=== PATIENT | female | born 1945 | race Caucasian/White ===

== ENCOUNTER 2020-04-14 15:24 | Observation (INO) | payer OTHER ==
--- OUTSIDE RECORDS SUMMARY | 2020-04-14 15:30 | XMS REPORT | Continuity of Care Document ---
:1945 Author Organization [facility] t Address [address] [place] [address] Dr. Anna. [address] [place] [address] Care Team Providers Name Role Phone Cezar SHERIFF S Attending Clinician Unavailable Only, Test Attending Clinician Unavailable Problems This patient has no known problems. Allergies, Adverse Reactions, Alerts This patient has no known allergies or adverse reactions. Medications This patient has no known medications. Procedures This patient has no known procedures. Encounters Start End Encounter Admission Attending Care Care Encounter Source Date/Time Date/Time Type Type Clinicians Facility Department ID 2019-07-20 2019-07-20 Telephone EDWIGE Robb [id number] 00:00:00 00:00:00 Deloris TSAI [id number] [facility] [id number] 2019-07-18 2019-07-18 Laboratory Only, [facility] [id number] 08:04:26 08:19:26 Only Test Gregg [id number] [place] [id number] [place] [id number] Results This patient has no known results.
[2020-04-14 17:18] VITALS: BMI 35.7
--- NOTE | 2020-04-14 18:02 | RAD REPORT ---
EXAM DESCRIPTION: CT - Head Brain Wo Cont - 04/14/2020 5:49 pm CLINICAL HISTORY: TIA COMPARISON: No comparisons TECHNIQUE: Axial 5 mm thick images of the head were obtained without IV contrast. All CT scans are performed using dose optimization technique as appropriate and may include automated exposure control or mA/KV adjustment according to patient size. FINDINGS: No intracranial hemorrhage, mass, edema or shift of mid-line structures. No acute cortical based infarction identified. No cortical edema or sulcal effacement. No abnormal extra-axial fluid c ollections. Ventricles are normal. No significant atrophy present. Mild scattered chronic ischemic ch anges seen. . Arterial tree calcifications are present. Mastoid air cells and visualized portions of the paranasal sinuses are clear. No acute bony findings. IMPRESSION: No intracranial hemorrhage. No acute infarction changes identified. Ongoing concerns for acute CVA can be further evaluated wit h MR imaging.
--- NOTE | 2020-04-14 18:03 | RAD REPORT ---
EXAM DESCRIPTION: RAD - Chest Pa And Lat (2 Views) - 04/14/2020 5:58 pm CLINICAL HISTORY: TIA COMPARISON: Two chest December 2001 TECHNIQUE: Frontal and lateral views of the chest were obtained. FINDINGS: The lungs are underinflated compared to the prior study. No peripheral mass or consolidati on. Interstitial pattern is accentuated by the low lung volume potentially masking mild edema or infi ltrate. Heart size is normal and central vasculature is within normal limits. No pleural effusion or pneumothorax seen. No acute bony finding noted. No aortic abnormality. IMPRESSION: No focal mass or consolidation. Baseline interstitial pattern accentuated by low lung volumes potentially masking edema or infiltrate .
--- NOTE | 2020-04-14 18:42 | RAD REPORT ---
EXAM DESCRIPTION: US - CP - 04/14/2020 6:23 pm CLINICAL HISTORY: TIA COMPARISON: No comparisons TECHNIQUE: Real-time sonographic evaluation of bilateral carotid and vertebral systems was performed . Gillespie scale and Doppler interrogation were performed with waveform tracing bilaterally. FINDINGS: Normal high resistance waveforms are noted in both external carotid arteries. The common c arotid arteries and internal carotid arteries show normal low resistance waveforms. Mild plaquing changes are present in each carotid bulb. No significant luminal narrowing seen. Peak s ystolic and end diastolic velocity values and the ICA/CCA ratios are in the non-hemodynamically signi ficant range. Antegrade flow seen in both vertebral arteries. Velocity values and ratios were recorded and are retained in the patient's imaging records. IMPRESSION: Mild bilateral plaquing changes without significant luminal narrowing identifiable. No evidence of a hemodynamically significant stenosis.
[2020-04-14 18:53] LABS: Absolute Lymphocytes (CBC) 1.8 K/uL (0.7-4.9); Basophils % 0.9 % (0-1.3); Hematocrit 37.9 % (36.0-45.0); Lymphocytes % 29.2 % (15.3-44.8); MPV 7.8 fL (7.6-11.3); RBC Red Blood Cell Count 4.49 M/uL (3.86-4.86)
[2020-04-14 19:15] LABS: Albumin 3.8 g/dL (3.4-5.0); Bilirubin Total 0.4 mg/dL (0.2-1.0); Magnesium 2.5 mg/dL (1.8-2.4); Potassium 4.2 mmol/L (3.5-5.1); Protein, Total 7.6 g/dL (6.4-8.2); Thyroid Stimulating Hormone 0.944 uIU/mL (0.360-3.740)
[2020-04-14] MEDS ORDERED: ATORVASTATIN 80 MG TAB PO SCH (21:00)
[2020-04-14 23:29] VITALS: O2SAT 96
--- NOTE | 2020-04-15 06:55 | HP ---
Date of Admission: 04/14/2020 Chief Complaint: Trouble speaking. History Of Present Illness: This is a 74-year-old pleasant female patient, who came into office tojessica augustin with her and reported that on 04/11/2020 she had a hard time completing sentence, she know exactly what she wanted to say but she could not say it. Yesterday, she had trouble remembering her alphabet and she could only say A B C, after that she was not able to say any and she remembers havin g similar symptoms when she had a TIA in the past, which was about 12 years ago. She did not have an y slurred speech. No problem with her eyesight, no difficulty swallowing, no tingling and numbness o f her extremities or face. She is having some headache for last 2 days and feels tired. After she w as evaluated at the office, she was admitted to the hospital with TIA problem. Medications: Atorvastatin 40 mg at bedtime, valsartan 320 mg p.o. daily, clopidogrel 75 mg p.o. levy y, duloxetine 60 mg p.o. daily, Trelegy 1 puff daily, trazodone 100 mg at bedtime. Review of Systems: RESTORER LACE AND TEXTILES: As mentioned above. CONSTITUTIONAL: As mentioned above. All other systems reviewed and negative. Allergies: NO KNOWN ALLERGIES. Past Medical History: Significant for TIA about 12 years ago, history of macular degeneration, hypot hyroidism, asthma, obstructive sleep apnea, hypertension, hyperlipidemia, coronary artery disease, ul cerative colitis in remission, osteoarthritis at multiple sites, anemia, depression, and insomnia. T he patient's cardiac cath from 2008 had shown 20% to 30% plaquing of RCA, LAD, and circumflex, never required any cardiac intervention. Past Surgical History: Significant for cataract surgery, tonsillectomy, wisdom teeth removal, dental implants, lumpectomy of the right breast for benign lump, hysterectomy, and removal of tumor from he r back. Family History: Father and had lung cancer, cirrhosis of liver, heart disease. Mother had hear t disease, hypertension, macular degeneration. Sister with hypertension and lupus. The patient also has lupus. Social History: Negative for smoking. Negative for alcohol use. Physical Examination: Vital Signs: Blood pressure 145/82, pulse 80, respiratory rate 16, temperature 97.1, weight 202.4 po unds, height 63 inches. General: Awake, alert, oriented, not in distress. HEENT: Head atraumatic, normocephalic. Conjunctivae nonerythematous. Sclerae white. Mouth, no thr ush or edema noted. Ears/Nose, no mass, lesion, discharge noted. Neck: Supple. No JVD, lymph nodes, bruit, thyromegaly noted. Lungs: Bilateral good equal air entry. Clear to auscultation. No rhonchi. No rales. Heart: Normal heart sounds, no murmur or gallop. Abdomen: Soft, bowel sounds normal. No guarding, rigidity, tenderness, mass, hepatosplenomegaly, di stention, or bruit noted. Extremities: No leg edema. No calf tenderness. Skin: No rash, ulcer, cellulitis. Lymphatics: No lymph node enlargement in neck, supraclavicular, infraclavicular region. Neuro: No focal neurological deficit. Chest: Unremarkable. External Genitalia: Deferred. Rectal: Deferred. Laboratory Data: COVID-19 test negative. Chest x-ray negative. CAT scan of the head done after she was admitted to the hospital shows no acute intracranial changes. Carotid Doppler shows bilateral m ild plaquing, no hemodynamically significant stenotic lesion. White count 6.3, hemoglobin 12.5, plat elets 342. Sodium 141, potassium 4.2, chloride 108, bicarb 27, BUN 15, creatinine 0.97. Glucose 88. Liver function tests normal. TSH 0.94. COVID-19 test negative. Impression: 1.Transient ischemic attack. 2.Coronary artery disease. 3.Hypertension. 4.Hyperlipidemia. 5.Hypothyroidism. 6.Osteoarthritis, multiple sites. 7.Diverticulosis. 8.Depression. Plan: We will admit the patient to hospital for further evaluation and management of this problem. We will go ahead and continue her current medication, continue antiplatelet therapy. Per order we wi ll increase her statin therapy and increase dose of atorvastatin from 40 to 80 mg. Consult neurologi , Dr. Yost and we will get echo with Doppler and MRI per stroke protocol. Details and plan of treatment discussed with patient. I will see her tomorrow for followup. TITI/MODL Voice ID: [id number]
[2020-04-15] MEDS ORDERED: VALSARTAN 160 MG TAB PO SCH (09:00)
[2020-04-15] MEDS ORDERED: CLOPIDOGREL 75 MG TABLET PO SCH (09:00)
[2020-04-15] MEDS ORDERED: PANTOPRAZOLE 40MG TABLET PO SCH (09:00)
[2020-04-15] MEDS ORDERED: DULOXETINE 30 MG CAP PO SCH (09:00)
[2020-04-15] MEDS ORDERED: HOME MED 1 EA UNK (Fluticasone/Umeclidin/Vilanter [Trelegy Ellipta 100-62.5-25] Blst.W.Dev IH SCH (09:00)
--- NOTE | 2020-04-15 10:59 | RAD REPORT ---
EXAM DESCRIPTION: MRI - Brain W/Wo Cont - 04/15/2020 10:44 am CLINICAL HISTORY: TIA Headache, drowsiness, CVA symptomology COMPARISON: MRA Head Wo Cont dated 04/15/2020; Head Brain Wo Cont dated 04/14/2020 TECHNIQUE: Multi-sequence, multiplanar MR imaging of the brain was performed with contrast. FINDINGS: No intracranial hemorrhage, hydrocephalus, or extra-axial fluid collection.Areas of T2 and FLAIR hyperintensity in the periventricular and deep white matter most compatible with mild chronic microvascular ischemia. No edema or shift of midline structures. No intracranial mass. DWI is negativ e for acute CVA. The midline structures are normally formed. Mastoid air cells and paranasal sinuses are clear. Post-contrast images show no abnormal enhancement to suggest tumor or infection. IMPRESSION: Negative for acute CVA or other acute intracranial abnormality. No pathologic post-contrast enhancement suspected.
--- NOTE | 2020-04-15 11:02 | RAD REPORT ---
EXAM DESCRIPTION: MRI - MRA Head Wo Cont - 04/15/2020 10:44 am CLINICAL HISTORY: TIA CVA COMPARISON: Head Brain Wo Cont dated 04/14/2020 FINDINGS: 3D noncontrast [id number] MR angiography of the [place] was performed. No aneurysm, flow-limiting stenosis or vascular malformation is seen. Left-sided dominant vertebral a rtery noted. The visualized dural venous sinuses appear patent. IMPRESSION: No significant flow abnormality of the [place] is identified.
--- NOTE | 2020-04-15 11:07 | RAD REPORT ---
EXAM DESCRIPTION: MRI - MRA Neck W/Wo Cont - 04/15/2020 10:44 am CLINICAL HISTORY: TIA Headache, drowsiness, CVA symptomology COMPARISON: Carotid Artery Bilateral dated 04/14/2020 FINDINGS: Contrast enhance 2D [id number] MR angiography of the neck vessels was performed. A left aortic arch is identified. Normal branching pattern of the great vessels is seen. Both subclavian arteries and common carotid arteries are patent. The left carotid bulb demonstrates mild stenosis estimated at 50% based on NASCET criteria. IMPRESSION: Mild stenosis of the left carotid bulb is seen estimated at 50% based on NASCET criteria .
[2020-04-15 12:35] VITALS: BP 128/59; TEMP 98.1
[2020-04-15] MEDS ORDERED: FOLIC ACID 1 MG TABLET PO ONE (17:00)
[2020-04-15] MEDS ORDERED: ASPIRIN EC 81 MG TAB PO ONE (17:00)
--- NOTE | 2020-04-15 19:31 | CON ---
Date of Consultation: 04/15/2020 Reason For Consultation: Consultation called by Dr. Kim because of a transient ischemic attack. History Of Present Illness: Ms. Castillo is a 74-year-old right-handed patient who has mul tiple stroke risk factors including dyslipidemia, prior TIA 10 years ago, coronary artery disease and obstructive sleep apnea with asthma who apparently developed sudden onset difficulty of expressing h erself. She was trying to read the Bible, actually I think she was praying, and all words with just the first 3 letters of the alphabet A, B, C and could not see anything else. She could not recall wh at she wanted to say and had no ability to express herself. The event lasted several minutes and per haps longer. During the episode, she had no slurred speech. Speech was clear. She had no asymmetry of her face. No weakness of the arms or legs and no other difficulty. She did not immediately come to [facility]. The event occurred about 2 days, actually on the 11 of April. Today, I sa w the patient on the 15 of April and she was admitted on the 14 [address]. Kim did a direct a dmit for the workup. Her head CT scan done on the showed no acute ischemic or hemorrhagic change s. Her carotid artery ultrasound showed mild bilateral plaques without hemodynamically significant s tenosis. Her brain MRI done earlier today ruled out the presence of an acute stroke. There was T2 a nd FLAIR hyperintensities in the periventricular and deep white matter compatible with mild chronic s mall-vessel ischemic disease but no acute stroke. Magnetic resonance angiogram of the brain showed n o significant abnormalities of the [place]. There was a left-sided dominant vertebral arter y and magnetic resonance angiogram of her neck, showed around 50% estimated stenosis of the left vaughan tid bulb, otherwise unremarkable. Her complete blood count with differential was completely normal. Basic metabolic panel showed glucose elevated at 229. Magnesium slightly elevated 2.5. TSH 0.99. COVID-19 test was negative. The patient notes no return of her symptoms while hospitalized. She was having an echocardiogram done at the time I came in to do her evaluation. Her was at the [facility]. Past Medical History: TIA around 12 years ago, hypertension, dyslipidemia, coronary artery disease, macular degeneration, insomnia, anemia, and as reported cardiac catheterization showing 20% to 30% pl aque of the right common carotid, left anterior descending and circumflex. Surgical History: Cataract surgery, tonsillectomy, lumpectomy of right breast, hysterectomy. Allergies: NO KNOWN DRUG ALLERGIES. Family History: Lung cancer, cirrhosis and heart disease in father, heart disease and hypertension i n mother and hypertension and lupus in sister. Social History: No alcohol, tobacco, or IV drugs. The patient lives with her . Medications: She has been on Plavix for years after the first transient ischemic attack and also Cym rudolph for depression and Lipitor for dyslipidemia. Review of Systems: She denies any recent fevers, chills, nausea, vomiting, myalgias, arthralgias, rash, headache, weight change. No psychiatric issues. No gastrointestinal issues. Physical Examination: Vital Signs: Blood pressure 120/59, pulse 73, respiratory rate 16, temperature 98.1, oxygen saturati on 97%. Weight 202 pounds, height 5 feet 3 inches, BMI 35.8. General: Ms. Castillo is alert and oriented to situation, place, and person. Follows commands appro priately. She is clear to auscultation. Heart: Regular. Extremities: Show no clubbing, cyanosis, or edema. Neurologic: She is alert and oriented to person, place, time, and situation and follows all commands . Cranial nerves show no deficits on 2 through 12. Motor, she has 5/5 strength proximally and dista lly in upper and lower extremities. Sensation intact in upper and lower extremities. Reflexes 1 to 2+ and symmetric in upper and lower extremities. Her gait has good stance, stride, and arm swing. Assessment: Ms. Castillo is a 74-year-old patient with multiple stroke risk factors including hypert ension, dyslipidemia, prior transient ischemic attack, and coronary artery disease, who also has had a more recent now transient ischemic attack while taking Plavix. It should be noted that she actuall y reported they had COVID-19 earlier in the year and this was discussed with the patient's as a possible risk factor for stroke as well. Plan: 1.Aspirin 81 mg plus Plavix 75 mg daily for at least 1 month. 2.Folic acid 1 mg daily. 3.Continue atorvastatin 80 mg at bedtime. 4.Diovan as per Dr. Kim. 5.Cymbalta as per Dr. Kim. 6.She should engage in 30 minutes of brisk exercise daily. 7.She was informed on changes to her diet that can reduce stroke risk. In addition to changes to th e type of liquids she drinks that also may reduce stroke risk. 8.After discharge, follow up with Dr. Yost in clinic 1 month later. BRADLEY/ANANT Voice ID: [id number] Report ID: [id number]
--- NOTE | 2020-04-16 05:16 | EKG ---
Test Date: 2020-04-14 Test Time: 22:10:38 Director Of Social Work: RICARDA MEASUREMENT RESULTS: Intervals: Rate: 73 FL: 186 QRSD: 98 QT: 380 QTc: 418 [place]: P: 48 FL: 186 QRS: -18 T: 34 INTERPRETIVE STATEMENTS: Normal sinus rhythm Incomplete right bundle branch block Minimal voltage criteria for LVH, may be normal variant Possible Anterior infarct, age undetermined Abnormal ECG No previous ECG available for comparison Electronically Signed On 04-16-20 05:11:46 NUISANCE WILDLIFE TRAPPER by Griffin Jordan
--- NOTE | 2020-04-16 08:35 | ECHO ---
HEIGHT: 5 ft 3 in WEIGHT: 202 lb 0 oz DATE OF STUDY: 04/15/[address]: Talha Kim MD 2-DIMENSIONAL: YES M.MODE: YES DOPPLER: YES COLOR FLOW: YES TDS: YES PORTABLE: NO DEFINITY: NO BUBBLE STUDY: NO DIAGNOSIS: TRANSIENT ISCHEMIC ATTACK CARDIAC HISTORY: CATHERIZATION: NO SURGERY: NO PROSTHETIC VALVE: NO PACEMAKER: NO MEASUREMENTS (cm) DIASTOLIC (NORMALS) SYSTOLIC (NORMALS) IVSd 1.0 (0.6-1.2) LA Diam 2.1 (1.9-4.0) LVEF 74% LVIDd 3.7 (3.5-5.7) LVIDs 2.2 (2.0-3.5) %FS 42% LVPWd 1.1 (0.6-1.2) Ao Diam 2.6 (2.0-3.7) 2 DIMENSIONAL ASSESSMENT: RIGHT ATRIUM: NORMAL LEFT ATRIUM: NORMAL RIGHT VENTRICLE: NORMAL LEFT VENTRICLE: NORMAL TRICUSPID VALVE: NORMAL MITRAL VALVE: NORMAL PULMONIC VALVE: NORMAL AORTIC VALVE: NORMAL PERICARDIAL EFFUSION: NONE AORTIC ROOT: NORMAL LEFT VENTRICULAR WALL MOTION: NORMAL DOPPLER/COLOR FLOW: NORMAL COMMENTS: NORMAL 2D ECHOCARDIOGRAM WITH DOPPLER. NO WALL MOTION ABNORMALITY. NO EFFUSION. TECHNOLOGIST: Kevin WALKER
--- NOTE | 2020-04-16 08:46 | DS ---
Date of Discharge: 04/15/2020 Disposition: Discharged to go home. Physical Examination: HEENT: Unremarkable. Lungs: Clear to auscultation. Heart: Sounds normal. Abdomen: Soft. Bowel sounds normal. No guarding, rigidity, tenderness, or distention. Extremities: No leg edema. Discharge Medications And Instructions: 1. Continue all prior home medications including;. a. Clopidogrel 75 mg daily. b. Take aspirin 81 mg daily. c. Folic acid 1 mg p.o. daily. 2. Follow up at my office next week on Monday or Monday per instruction. Hospital Course: This is a 74-year-old pleasant female patient, who was admitted to the hospital with TIA symptoms. Please see dictated H and P for more information. After patient was evaluated at the office, decision was made to admit her to the hospital. Further workup was done including CT scan of the head, which was negative for any acute intracranial changes. Carotid Doppler was negative for any hemodynamically significant stenotic lesion. Echocardiogram was done, result pending. MRI of the brain per stroke protocol was done and MRA of the neck showed minimal carotid artery disease, no hemodynamically significant stenotic lesion. MRA of the brain was negative and MRI of the brain was negative for any acute changes, no evidence of stroke. The patient's condition remained stable and she was discharged to go home in stable condition. EKG was normal sinus rhythm. Neurology consultation was requested from Dr. Yost. Final Diagnoses: 1. Transient ischemic attack. 2. Hypertension. 3. Hyperlipidemia. 4. Coronary artery disease. 5. Obstructive sleep apnea. 6. Osteoarthritis, multiple sites. 7. Depression. TITI/MODL Voice ID: [id number] Report ID: [id number] MTDD
== END 2020-04-15 16:46 | disposition home or self-care (01) ==
LOC: 2ND 15:27 → INTOOBSV 15:27
PROVIDERS: ADMIT Internal Medicine; ATTEND Internal Medicine
DX: G45.9 Transient cerebral ischemic attack, unspecified (principal); I25.10 Atherosclerotic heart disease of native coronary artery without angina pectoris; I10 Essential (primary) hypertension; E78.5 Hyperlipidemia, unspecified; G47.33 Obstructive sleep apnea (adult) (pediatric); M15.9 Polyosteoarthritis, unspecified; F32.9 Major depressive disorder, single episode, unspecified; K57.90 Diverticulosis of intestine, part unspecified, without perforation or abscess without bleeding; E03.9 Hypothyroidism, unspecified; J45.909 Unspecified asthma, uncomplicated; H35.30 Unspecified macular degeneration; D64.9 Anemia, unspecified; G47.00 Insomnia, unspecified; Z86.73 Personal history of transient ischemic attack (TIA), and cerebral infarction without residual deficits; Z79.02 Long term (current) use of antithrombotics/antiplatelets; Z20.822 Contact with and (suspected) exposure to COVID-19; Z86.16 Personal history of COVID-19; Z82.49 Family history of ischemic heart disease and other diseases of the circulatory system; Z80.1 Family history of malignant neoplasm of trachea, bronchus and lung
CPT/HCPCS: 93005; 93306; 85025; 36415; 83735; 82947; 84443; 80053; 70450; 71046; 93880; 70553; 70544; 70549; U0003; A9577; G0379; G0378 ×2

== ENCOUNTER 2023-03-16 05:56 | Observation (INO) | payer OTHER ==
[2023-03-09 13:20] LABS: Absolute Lymphocytes (CBC) 1.7 K/uL (0.7-4.9); Hematocrit 35.7 % (36.0-45.0); Lymphocytes % 28.7 % (15.3-44.8); MPV 7.3 fL (7.6-11.3); Platelets 327 thou/uL (152-406); RBC Red Blood Cell Count 4.15 M/uL (3.86-4.86)
[2023-03-09 13:21] LABS: Protime INR 0.99
[2023-03-09 13:22] LABS: Specific Gravity 1.016 (1.005-1.030); Urine Bacteria <20 /HPF (<20); Urine Bilirubin NEGATIVE (Negative); Urine Blood Negative (Negative); Urine Clarity Turbid (Clear); Urine Color Yellow (Yellow); Urine Glucose NEGATIVE (Negative); Urine Mucus Slight /HPF (None Seen); Urine Protein NEGATIVE (Negative); Urine RBC <5 /HPF (None Seen); Urine Urobilinogen Normal (Normal); Urine pH 5.5 (5.0-7.0)
--- NOTE | 2023-03-09 13:32 | EKG ---
Test Date: 2023-03-09 Test Time: 13:58:12 [employer] Pulper: DEBBIE MEASUREMENT RESULTS: Intervals: Rate: 69 NC: 172 QRSD: 100 QT: 404 QTc: 432 [place]: P: 64 NC: 172 QRS: -25 T: 42 INTERPRETIVE STATEMENTS: Normal sinus rhythm Incomplete right bundle branch block Borderline ECG Compared to ECG 04/14/2020 22:10:38 Left ventricular hypertrophy no longer present Myocardial infarct finding no longer present Electronically Signed On 03-09-23 13:24:03 WEIGHT AND TEST BAR CLERK by Jerry Aguilar
[2023-03-09 13:35] LABS: Potassium 4.1 mEq/L (3.5-5.1)
[2023-03-16] MEDS: SCOPOLAMINE HYDROBROMIDE PATCH TD ONE (06:30)
[2023-03-16] MEDS: CEFAZOLIN SODIUM 2 GM/VIAL ONE (06:39)
[2023-03-16] MEDS: Ringers Lactate 1,000 ML IV ONE ×2 (06:40→11:23)
[2023-03-16] MEDS ORDERED: ROCURONIUM 50 MG/5 ML VIAL IV ONE (06:41)
[2023-03-16] MEDS ORDERED: dexAMETHasone 4 MG/ML VIAL ONE (06:41)
[2023-03-16] MEDS ORDERED: ONDANSETRON 4 MG/2 ML VIAL ONE (06:41)
[2023-03-16] MEDS ORDERED: KETOROLAC 30 MG/ML INJ ONE (06:41)
[2023-03-16] MEDS ORDERED: LIDOCAINE 2% MPF 5 ML VIAL ONE (06:41)
[2023-03-16] MEDS ORDERED: propofoL 200 MG/20 ML VIAL IV ONE (06:41)
[2023-03-16] MEDS ORDERED: FENTANYL CITR 100 MCG/2 ML ONE (06:42)
[2023-03-16] MEDS: CEFAZOLIN SODIUM 1 GM/VIAL ONE (07:12)
[2023-03-16] MEDS: BUPIVACAINE 0.25% PF 30 ML VIAL ONE (07:19)
[2023-03-16] MEDS ORDERED: NS 0.9% VIAL 20 ML ONE (07:33)
[2023-03-16] MEDS: HEPARIN 5000 UNIT/ML 1 ML VIAL ONE (08:14)
[2023-03-16] MEDS ORDERED: VECURONIUM 10 MG/VIAL IV ONE (08:59)
[2023-03-16] MEDS: LIDOCAINE HCL/EPINEPHRINE 20 ML MDV ONE ×2 (10:04→10:41)
[2023-03-16] MEDS: SUGAMMADEX SODIUM 200 MG/2 ML VIAL IV ONE (11:31)
[2023-03-16] MEDS ORDERED: ACETAMINOPHEN 500 MG TAB PO PRN (12:23)
[2023-03-16] MEDS ORDERED: PROMETHAZINE 25 MG TABLET PO PRN (12:24)
[2023-03-16] MEDS ORDERED: PROMETHAZINE INJ 25 MG/ML AMP IV PRN (12:24)
[2023-03-16] MEDS: FENTANYL CITR 100 MCG/2 ML ONE (12:30)
--- OUTSIDE RECORDS SUMMARY | 2023-03-16 12:57 | XMS REPORT | Continuity of Care Document ---
Author Name Unknown Address [address] [facility] [address] [place] [address] [facility] Address [address] [facility] 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 Name Role Phone Julio Talha Tinoco Primary Care Physician [phone] [email or web address]_S Attending Clinician Unavaila DENNISE Ford Attending Clinician Unavailable OREN MELLO Attending Clinician Unavailable Deloris Robb RN Attending Clinician Unavaila ble Only, Adc Test Attending Clinician Unavailable Jt Hamilton MD Attending Clinician [phone] JT HAMILTON Attending Clinician Unavailable GC_GCBZW_Kacharliea_S Admitting Clinician Unavaila markus Payers Payer Name Policy Type Policy Number Effective Date Expirati on Date Source MEDICARE PART A AND B [id number] 2009 00:00:00 [place] [employer] [id number] 2009 00:00:00 [facility] ( - PPO) [id number] Problems Condition Name Condition Details Condition Category Status Onset Date Resolution Date Last Treatment Date Treating Clinician Comments Source Trigger middle finger of left hand Trigger middle finger of left hand Disease Active 05-09 00:00: 00 [facility] 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 Disease Active 2-06 00:00: 00 [facility] 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 Disease Active 1-16 00:00: 00 [facility] 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 left hand Disease Active 10-18 00:00: 00 [facility] Pain of left hand Pain of left hand Disease Active 10-18 00:00: 00 [facility] Pain of right hand Pain of right hand Disease Active 10-18 00:00: 00 [facility] Pain of right middle finger Pain of right middle finger Disease Active 10-18 00:00: 00 [facility] Stiffness of finger joint of right hand Stiffness of finger joint of right hand Disease Active 10-18 00:00: 00 [facility] Allergies, Adverse Reactions, Alerts Allergy Name Allergy Type Status Severity Reaction(s) Onset Date Inactive Date Treating Clinician Comments Source Aspirin Propensi ty to adverse reaction s Active 10-18 00:00: 00 [facility] NO KNOWN ALLERGIE S Drug Class Active [facility] Social History Social Habit Start Date Stop Date Quantity Comments Source Exposure to SARS-CoV-2 (event) 2022-04-29 00:00:00 2022-05-09 10:18:00 Not sure [facility] Sex Assigned At 1945 00:00:00 1945 00:00:00 [facility] Smoking Status Start Date Stop Date Source Tobacco smoking consumption unknown [facility] Medications Ordered Medication Name Filled Medication Name Start Date Stop Date Current Medication? Ordering Clinician Indication Dosage Frequency Signature (SIG) Comments Components Source lidocaine (Xylocaine) 1 % injection 1 mL 05-09 16:00: 00 05-09 16:00 :00 No [id number] 1mL [facility] betamethaso ne acetate-bet amethasone sodium phosphate (Celestone) injection 30 mg 05-09 16:00: 00 05-09 16:00 :00 No [id number] 30mg [facility] betamethaso ne acetate-bet amethasone sodium phosphate (Celestone) injection 30 mg 05-09 16:00: 00 05-09 16:00 :00 No [id number] 30mg 30 mg, Intra-arik cular, Once PRN Procedure, Starting on Mon05/09/22 at 1100, For 1 dose [facility] lidocaine (Xylocaine) 1 % injection 1 mL 05-09 16:00: 00 05-09 16:00 :00 No [id number] 1mL 1 mL, Injection, Once PRN Procedure, Starting on Mon05/09/22 at 1100, For 1 dose [facility] acetaminoph en-codeine (Tylenol w/ Codeine #3) 300-30 MG tablet 04-07 00:00: 00 04-12 05:59 :00 No [id number] 1{tbl} Q6H Take 1 tablet by mouth every 6 (six) hours if needed for severe pain for up to 4 days. [facility] No known medications 10-18 12:04: 41 No No known medication s [facility] Procedures Procedure Date / Time Performed Performing Clinicia n Source [facility] INJECT TENDON SHEATH/LIGAMENT 2022-05-09 16:00:00 [place] [facility] Encounters Start Date/Time End Date/Time Encounter Type Admission Type Attending Clinicians Care Facility Care Department Encounter ID Source 2022-04-06 16:13:51 Outpatient [facility] [id number] [facility] 2022-03-28 08:38:03 Outpatient [facility] [id number] [facility] 2022-03-11 10:26:42 Outpatient [facility] [id number] [facility] 2022-02-22 11:24:45 Outpatient [facility] [id number] [facility] 2022-02-21 13:52:13 Outpatient [facility] [id number] [facility] 2022-02-14 11:13:39 Outpatient [facility] [id number] [facility] 2021-10-18 11:15:15 Outpatient [facility] [id number] [facility] 2021-10-14 13:11:09 Outpatient [facility] [id number] [facility] 2021-09-24 07:10:36 Outpatient [facility] [id number] [facility] 2021-09-23 15:25:11 Outpatient [facility] [id number] [facility] 2023-02-27 00:00:00 2023-02-27 00:00:00 Outpatient GC_GCBZW_Ka diyala_S PRIV PRIV [id number] [facility] 2023-01-03 00:00:00 2023-01-03 00:00:00 Outpatient GC_GCBZW_Ka diyala_S PRIV PRIV [id number] [facility] 2022-12-08 00:00:00 2022-12-08 00:00:00 Outpatient GC_GCBZW_Ka diyala_S PRIV PRIV [id number] [facility] 2022-11-01 00:00:00 2022-11-01 00:00:00 Outpatient GC_GCBZW_Ka diyala_S PRIV PRIV [id number] [facility] 2022-11-01 00:00:00 2022-11-01 00:00:00 Outpatient GC_GCBZW_Ka diyala_S PRIV PRIV [id number] [facility] 2022-09-13 00:00:00 2022-09-13 00:00:00 Outpatient GC_GCBZW_Ka diyala_S PRIV PRIV [id number] [facility] 2022-08-24 00:00:00 2022-08-24 00:00:00 Outpatient GC_GCBZW_Ka diyala_S PRIV PRIV [id number] [facility] 2022-08-24 00:00:00 2022-08-24 00:00:00 Outpatient GC_GCBZW_Ka diyala_S PRIV PRIV [id number] [facility] 2022-08-24 00:00:00 2022-08-24 00:00:00 Outpatient GC_GCBZW_Ka diyala_S PRIV PRIV [id number] [facility] 2022-08-24 00:00:00 2022-08-24 00:00:00 Outpatient GC_GCBZW_Ka diyala_S PRIV PRIV [id number] [facility] 2022-08-19 00:00:00 2022-08-19 00:00:00 Outpatient GC_GCBZW_Ka diyala_S PRIV PRIV [id number] [facility] 2022-08-18 00:00:00 2022-08-18 00:00:00 Outpatient GC_GCBZW_Ka diyala_S PRIV PRIV [id number] [facility] 2022-08-17 00:00:00 2022-08-17 00:00:00 Outpatient GC_GCBZW_Ka diyala_S PRIV PRIV [id number] [facility] 2022-08-16 00:00:00 2022-08-16 00:00:00 Outpatient GC_GCBZW_Ka diyala_S PRIV PRIV [id number] [facility] 2022-08-15 00:00:00 2022-08-15 00:00:00 Outpatient GC_GCBZW_Ka diyala_S PRIV PRIV [id number] [facility] 2022-05-09 11:30:00 2022-05-09 12:45:09 Outpatient [facility] [id number] [facility] 2022-05-09 11:00:00 2022-05-09 12:44:57 Office Visit DENNISE KIRBY [facility] 1 [id number] [facility] 2022-04-25 13:00:00 2022-04-25 13:00:00 Outpatient OREN MELLO [facility] [id number] [facility] 2022-04-19 09:30:00 2022-04-19 09:52:24 Outpatient [facility] [id number] [facility] 2022-04-19 09:30:00 2022-04-19 09:52:05 Office Visit Oren Mello [facility] 1 [id number] [facility] 2022-04-07 13:15:00 2022-04-07 14:13:33 Outpatient [facility] [id number] [facility] 2022-04-07 13:30:00 2022-04-07 14:11:55 Office Visit Dennise Kirby [facility] 1 [id number] [facility] 2022-03-25 11:00:00 2022-03-25 11:00:00 Outpatient OREN MELLO [facility] [id number] [facility] 2022-03-14 13:30:00 2022-03-14 13:59:11 Office Visit Oren Mello [facility] 1 [id number] [facility] 2021-10-18 12:00:00 2021-10-18 13:41:56 Office Visit OREN MELLO [facility] 1 [id number] [facility] 2021-10-18 00:00:00 2021-10-18 13:41:47 Outpatient [facility] [id number] [facility] 2021-10-14 12:30:00 2021-10-14 12:30:00 Outpatient OREN MELLO [facility] [id number] [facility] 2019-07-20 00:00:00 2019-07-20 00:00:00 Telephone Deloris Robb [facility] [id number] [id number] [id number] 2019-07-20 00:00:00 2019-07-20 00:00:00 Telephone Deloris Robb [facility] [id number] [facility] 2019-07-18 08:04:26 2019-07-18 08:19:26 Laboratory Only Only, Adc Test [facility] [id number] 2019-07-18 08:04:26 2019-07-18 08:19:26 Laboratory Only Only, Adc Test Jt Hamilton [facility] [id number] [facility] 2019-07-18 08:00:00 2019-07-18 08:00:00 Outpatient R JT HAMILTON [facility] [id number] [facility]
[2023-03-16] MEDS ORDERED: ALBUTEROL INHALER 200 PUFF/6.7 GM IH PRN (13:38)
[2023-03-16] MEDS: LANO/MINERAL OIL/PETRO 3.5 GM ONE (13:55)
[2023-03-16] MEDS: cloNIDine HCL 0.1 MG TAB PO SCH (14:00)
[2023-03-16 15:22] VITALS: BMI 35.3
[2023-03-16] MEDS: CEFAZOLIN 1 GM in NA CHLORIDE 0.9% 50 ML IVPB SCH (15:47)
[2023-03-16] MEDS ORDERED: PNEUMOCOCCAL VACCINE 0.5 ML IMVAC ONE (16:00)
[2023-03-16] MEDS ORDERED: SENOSIDES 8.6 MG TAB PO PRN (16:14)
[2023-03-16] MEDS: MORPHINE 2 MG/ML SYR IV PRN (17:01)
[2023-03-16] MEDS: MOXIFLOXACIN HCL 0.5% 3ML OPTH OPTH SCH (17:46)
[2023-03-16] MEDS: KETOROLAC OPTHALMIC 5 ML BOT OPTH SCH (17:46)
[2023-03-16] MEDS: HYDROMORPHONE HCL 1 MG/ML INJ IV ONE (18:50)
[2023-03-16] MEDS: KETOROLAC 30 MG/ML INJ IV ONE (18:50)
[2023-03-16] MEDS: TRAZODONE 50 MG TABLET PO SCH (20:53)
[2023-03-16] MEDS: ATORVASTATIN 40 MG TAB PO SCH (20:53)
[2023-03-16] MEDS: DOXAZOSIN 2 MG TAB PO SCH (20:54)
[2023-03-16] MEDS: HYDROCODONE/APAP 5/325 MG TAB PO PRN (21:19)
[2023-03-17] MEDS: IBUPROFEN 400 MG TAB PO SCH
[2023-03-17] MEDS: VALSARTAN 160 MG TAB PO SCH (09:17)
[2023-03-17] MEDS: CLOPIDOGREL 75 MG TABLET PO SCH (09:17)
[2023-03-17] MEDS: IBUPROFEN 200 MG TAB PO ONE (09:18)
[2023-03-17] MEDS: FOLIC ACID 1 MG TABLET PO SCH (09:19)
[2023-03-17] MEDS: HYDROCODONE/APAP 5/325 MG TAB PO ONE (09:19)
[2023-03-17 09:35] VITALS: TEMP 97.4; O2SAT 94
[2023-03-17 13:16] VITALS: BP 142/53
--- NOTE | 2023-04-03 14:14 | OP ---
Date of Procedure: 03/16/2023 Surgeon: Charlee Guerra MD Analytical Research Program Manager: Tuyet Vergara Preoperative Diagnoses: Pelvic mass, left lower quadrant pain, stress urinary incontinence, and rect ocele. Postoperative Diagnoses: pelvic pain, ovarian cyst, adhesions, posterior wall defect stag e II, posterior enterocele, and stress urinary incontinence. Procedures Performed: 1.Diagnostic laparoscopy, bilateral salpingo-oophorectomy with pelvic washings and left ureterolysis . 2.Rectocele repair with enterocele repair and perineorrhaphy. 3.Transobturator midurethral sling (Solyx single-incision sling) and cystoscopy. Anesthesia: General endotracheal. Estimated Blood Loss: 50 Specimens: Bilateral ovaries and tubes with pelvic washings. Complications: No complications. Drains: No drains. Findings: POP-Q -2, -2, -7, 4.5, moderate, 7, -1, 0, NA. Posterior enterocele was clearly visualize d. There was a site-specific defect in the left lateral wall with avulsion distally, so site-specifi c defect repair was performed. Cystoscopy was negative after the sling. Bilateral ovaries and tubes with adhesions on the vaginal cuff, obliterated cul-de-sac, and bilateral scars on the lateral stanley . Indications: The patient is a 77-year-old with prolapse and urinary incontinence. On transvaginal u ltrasound, she was found to have a complex pelvic adnexal mass. Her CA-125 was 8.9, normal. However , since the left-sided cystic mass was 1.9, 1.25, 1.2 cm multiple cysts that were organized like a co mplex mass , including a benign mass, so proceeded to consent her for laparoscopic bilatera l salpingo-oophorectomy and pelvic washings along with evaluation for prolapse repair, including rect ocele repair and perineorrhaphy. At times she had stress urinary incontinence, for which she was flaquito luated with cough stress test, which was positive, so proceeded to employment counselor her for a midurethral slin g. She came into the hospital, re-consented in the preoperative area. The daughter and were present for the conversation, and she was skeptical about having mesh placed in the vagina. After e xplaining that this was a midurethral mesh that , she consented for this fully understandin g the risk of urinary obstruction with the sling, which is very uncommon; however, present risk would be very critical to solve her problem of stress urinary incontinence, which was one of her chief com plaints. Procedure In Detail: After taken back to the OR, 2 g of Ancef was given and SCDs were placed. Time- out was done and procedure started. The patient was placed in a supine fashion on the operating tabl e. dorsal lithotomy position. Abdomen, vulva, vagina, and perineum were prepped and drap ed in a sterile fashion with ChloraPrep and Betadine, respectively. Diagnostic laparoscopy with bilateral salpingo-oophorectomy and pelvic washings: An infraumbilical i ncision was made with the scalpel. Then, using the open laparoscopy technique, fascia was incised, t agged with sutures. Peritoneum was entered sharply. Brii was introduced and fixed in place. Two left lateral ports were placed, 1 in the left lower quadrant and 1 in the left upper quadrant, a supr apubic scar in the right lower quadrant incision, all of these were 5 mm incisions made and trocars p laced. On examination of the pelvic cavity after pelvic washings were performed clearly, upper abdom en was completely unremarkable. Lower abdomen, it was clear that the ovaries were stitched onto the top of the vaginal apex to the vaginal cuff. On close examination, and following the ureters on the left side, it was much more pulled in towards the suspension that was performed, which seemed like ut erosacral suspension; however, likely from her vaginal procedure. Her lateral broad ligaments were a lso stitched to her uterosacral posterior cuff. Therefore, plan was to perform left ureterolysis to trace the entire course of the left ureter, followed by salpingo-oophorectomy. After pelvic washings were performed, the sidewall, and the pelvis was opened up with the help of sharp and blunt dissection using Maryland scissors and cautery. Then, once the ureter was id entified proximally, this was followed and dissected from lateral to medial. Once the medial leaf of the broad ligament was opened up, I could visualize the ureter. The dissection was started at the l evel of the left round ligament. Then, the dissection was easier for me to start. This was brought down. I came down to open the paravesical space and then after identifying the uterosacral ligament, the pararectal space was opened up. As there was an ambulatory cul-de-sac, this was more advantageo us. Then, the prevesical space was opened up and the bladder dissected with vaginal retraction with the EEA Sizer inferiorly. On the right side, similar dissection was performed by opening up the lateral broad ligament by retra cting the round ligament and getting into the broad ligament. Then, broad ligament was dissected cuca n all the way to the uterosacral because the IP ligament was U-stitch on to the lateral wall due to t he suspension of the ovaries to the uterosacral ligaments. Once this dissection was performed, the u reter was identified inferiorly and medially. The peritoneum was incised to drop the ureter laterall y. Then, on the medial posterior aspect of the ureter, the peritoneum was incised all the way down t o the right pararectal space. Once the pararectal space was opened up, isolated the utero sacral ligaments and the paravesical space was easily opened on the right side as well. The bladder dissection was completed, retracted inferiorly. Then, with the exposed IP ligaments and the uterosac ral ligament, I was able to take down the infundibulopelvic ligament on the left side, isolated that both medially and laterally. Then, this was taken down. Then, the tubal mass was also excised. The re were cystic masses on the left ovary almost on the cuff, so it was carefully removed without allow ing any cells to spill or opening up the cyst wall. Once this was performed, the left ovary was diss ected from the left ureter. The ureter was dissected all the way to the ureteric tunnel along the in ternal iliac artery. As the uterine artery was severed, the pedicle was slightly superior to the ure teric tunnel and slightly lateral. This was safely then dissected by bringing all the scar tissue me dially and dropping the ureter laterally. Then, the left ovary and tube were dissected off the vagin al cuff. Then retracted towards IP ligament and the then IP ligament was taken down with the help of the LigaSure. In a similar fashion, the ovary was dissected off the vaginal cuff carefully without leaving any remnants there. Since uterosacral was exposed, this was left intact attached to the vagi nal cuff. Then, the ovary and tube were dissected off the cuff towards the IP, and the IP was taken down with the help of the LigaSure. The specimens were placed in Endo Catch bag and the attachment o f the uterosacral to the vaginal cuff was left intact as this acted as a good support for the apex. All the specimens were removed. There was good peristalsis of both ureters. Specimen bag was remove d through the umbilical port. Trocars were removed under direct vision after thorough irrigation and suction performed. There was excellent hemostasis. All the trocars were removed under direct visio n and the fascia at the umbilicus was closed with the help of 0 Vicryl sutures tied to each other, si mple Monocryl sutures for all skin incisions. Rectocele repair: After visualizing the defect on the posterior wall, it was clear that this was a s ite-specific repair, so I went ahead and injected with dilute vasopressin on the perineum posterior wall. A nava-shaped incision was made, starting at the posterior wall all the way down to the perineum and this was opened up. Once the connective tissue was dissected, and I could visual ize the connective tissue defect over the lateral wall avulsion, and once the defect was visualized, all the fascia was dissected inferiorly around the vaginal epithelium and then the sidewall was also clearly dissected. Rectum was projected and dissected posteriorly. Then, I was able to d issect past the apex into the posterior enterocele gradually. The apex was well suspended as the susi rosacrals were attached to the apex. Then, the enterocele was fully exposed all the way to the top o f the wall. This was closed with 2 pursestring sutures of 3-0 Monocryl. Once it was all nicely redu gareth, there was excellent support reattached to the apex. Rectocele repair was performed with continuous running 2-0 Vicryl sutures to repair the left lateral wall defect. The perineal body reconstruction was performed with 2-0 Vicryl sutures in interrupted fashion in 2 la yers. Once this was done, the posterior wall was brought down and reattached to the perineal body. The epithelial edges were brought in with the help of 2-0 Vicryl and subcutaneous subcuticular suture s with 3-0 Vicryl. Rectal exam was performed. No evidence of any trauma and very well reattached ap ex to the posterior wall. The midurethral layer was picked up with 2 Allis clamps and then injected with dilute vasopressin 10 cc 15 blade was used to make a 1.5 cm mid urethral incision, and then dissection was argentina ed to the ipsilateral obturator space hugging the inferior pubic ramus without perforating membrane. The tract was then enlarged on both sides. The Solyx ring was taken. The middle was marked with th e help of 3-0 Monocryl suture. Then, retracing the tract of the tunnel all the way to the obturator space, top one-third of the Solyx needle was passed at a 45-degree angle, and the anchor was placed i nto the obturator muscle and the fascia. This was deployed here and a good time was given. The side was loaded and passed retracing the tunnel and then into the obturator internus muscle and fascia. The anchor was secured without leaving the mesh. The tension was checked and was optimal without it being too tight, just enough space for Metzenbaum scissors. on the mesh for high tensioni ng adjusted to be too tight. Irrigation with antibiotic solution was performed and closed the vaginal epithelium in a continuous r unning locked fashion with the help of 3-0 Vicryl sutures. Malloy was removed. Cystoscopy was perfor med, 30-degree lens, normal saline, and there were excellent jets of urine from both ureteric orifice s. No evidence of any trauma to the bladder or foreign body on the lateral aspects . She was recovered from anesthesia. Instrument, needle, and sponge counts were correct at the end of the case. The patient tolerated procedure well. She was recovered and taken to PACU in stable condition . ROXANA/ANANT Voice ID: [id number] Report ID: [id number]
== END 2023-03-17 13:18 | disposition home or self-care (01) ==
LOC: OR 05:56 → 2ND 12:53
PROVIDERS: ADMIT Obstetrics & Gynecology; ATTEND Obstetrics & Gynecology
PROC: 0UT24ZZ Resection of Bilateral Ovaries, Percutaneous Endoscopic Approach (ICD-10-PCS; 2023-03-16)
PROC: 0JQC0ZZ Repair Pelvic Region Subcutaneous Tissue and Fascia, Open Approach (ICD-10-PCS; 2023-03-16)
PROC: 0TSD0ZZ Reposition Urethra, Open Approach (ICD-10-PCS; 2023-03-16)
PROC: 0UT74ZZ Resection of Bilateral Fallopian Tubes, Percutaneous Endoscopic Approach (ICD-10-PCS; principal; 2023-03-16 07:00)
DX: D27.1 Benign neoplasm of left ovary (principal); N39.3 Stress incontinence (female) (male); N81.6 Rectocele; R19.04 Left lower quadrant abdominal swelling, mass and lump; R10.32 Left lower quadrant pain; N83.8 Other noninflammatory disorders of ovary, fallopian tube and broad ligament; I10 Essential (primary) hypertension; I25.10 Atherosclerotic heart disease of native coronary artery without angina pectoris; E78.5 Hyperlipidemia, unspecified; J45.909 Unspecified asthma, uncomplicated; G47.33 Obstructive sleep apnea (adult) (pediatric); E66.9 Obesity, unspecified; F32.A Depression, unspecified; D64.9 Anemia, unspecified; Z86.73 Personal history of transient ischemic attack (TIA), and cerebral infarction without residual deficits
CPT/HCPCS: 93005; 85025; 81001; 80048; 36415; 86900; 88108; 86850; 85610; 86901; 88305; 88307; 85730; 94010; 58661; 57250; 57288; J1644; A4216; J2704; J1100; J1885; J2001; J3010 ×2; J2270; J1170; J2405; G0378 ×3; C1771; J7120 ×2; J0690 ×4; G0379; 88304; J3535

== ENCOUNTER 2023-09-05 17:22 | Emergency (ER) | payer OTHER ==
--- OUTSIDE RECORDS SUMMARY | 2023-09-05 17:26 | XMS REPORT | Continuity of Care Document ---
Author Name Unknown Address [address] [facility] [address] [place] [address] [facility] Address [address] [facility] 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 Role Phone Talha Kim Primary Care Physician [phone] [email or web address]_Kadiyala_S Attending Clinician Unavaila IBETH Ford Attending Clinician Unavailable OREN MELLO Attending Clinician Unavailable Deloris Robb RN Attending Clinician Unavaila ble Only, Adc Test Attending Clinician Unavailable Afsaneh Hamilton MD Attending Clinician [phone] AFSANEH HAMILTON Attending Clinician Unavailable GC_GCBZW_Kadimaria ma_S Admitting Clinician Unavaila markus Payers Payer Name Policy Type Policy Number Effective Date Expirati on Date Source MEDICARE PART A AND B [id number] 2009 00:00:00 [place] [employer] [id number] 2009 00:00:[address] [facility] ( - PPO) [id number] Problems Condition Name Condition Details Condition Category Status Onset Date Resolution Date Last Treatment Date Treating Clinician Comments Source Fatigue Fatigue Problem Active 6-10 00:00: 00 [facility] Low back pain Low Back Pain Problem Active 4-17 00:00: 00 [facility] Pain in pelvis Pain in Pelvis Problem Active 0 4-17 00:00: 00 [facility] Dysuria Dysuria Problem Active 0 4-17 00:00: 00 [facility] Left lower quadrant pain Left Lower Quadrant Pain Problem Active 0 2-15 00:00: 00 [facility] Pelvic mass Pelvic Mass Problem Active 0 2-06 00:00: 00 [facility] Hypertensi ve disorder Hypertensi ve Disorder Problem Active 0 2-01 00:00: 00 [facility] Asthma Asthma Problem Active 0 2-01 00:00: 00 [facility] 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 Problem Active 0 7-13 00:00: 00 [facility] Female stress incontinen ce Female Stress Incontinen ce Problem Active 0 7-13 00:00: 00 [facility] Urgent desire to urinate Urgent Desire to Urinate Problem Active 0 7-13 00:00: 00 [facility] Herniation of rectum into vagina Herniation of Rectum into Vagina Problem Active 0 4-10 00:00: 00 [facility] Genuine stress incontinen ce Genuine Stress Incontinen ce Problem Active 0 4-10 00:00: 00 [facility] Trigger middle finger of left hand Trigger middle finger of left hand Disease Active 0 4-03 00:00: 00 [facility] Urinary incontinen ce Urinary Incontinen ce Problem Active 0 2-14 00:00: 00 [facility] 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 Disease Active 0 2-06 00:00: 00 [facility] 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 Disease Active 0 1-16 00:00: 00 [facility] 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 left hand Disease Active 0 9-12 00:00: 00 [facility] Pain of left hand Pain of left hand Disease Active 0 9-12 00:00: 00 [facility] Pain of right hand Pain of right hand Disease Active 10-18 00:00: 00 [facility] Pain of right middle finger Pain of right middle finger Disease Active 10-18 00:00: 00 [facility] Stiffness of finger joint of right hand Stiffness of finger joint of right hand Disease Active 10-18 00:00: 00 [facility] Essential hypertensi on Essential Hypertensi on Problem Active 08-06 00:00: 00 [facility] Atrophic vaginitis Atrophic Vaginitis Problem Active 08-06 00:00: 00 [facility] Menopause present Menopause Present Problem Active 08-06 00:00: 00 [facility] Gynecologi ruma examinatio n abnormal Gynecologi ruma Examinatio n Abnormal Problem Active 08-06 00:00: 00 [facility] History of cerebrovas cular disease History of Cerebrovas cular Disease Problem Active 08-06 00:00: 00 [facility] Allergies, Adverse Reactions, Alerts Allergy Name Allergy Type Status Severity Reaction(s) Onset Date Inactive Date Treating Clinician Comments Source Aspirin Propensi ty to adverse reaction s Active 10-18 00:00: 00 [facility] Aspirin Allergy to substanc e Active [facility] NO KNOWN ALLERGIE S Drug Class Active [facility] Social History Social Habit Start Date Stop Date Quantity Comments Source Exposure to SARS-CoV-2 (event) 2022-04-29 00:00:00 2022-05-09 10:18:00 Not sure [facility] Sex Assigned At 1945 00:00:00 1945 00:00:00 [facility] Smoking Status Start Date Stop Date Source Tobacco smoking consumption unknown [facility] Never Smoker [facility] Medications Ordered Medication Name Filled Medication Name Start Date Stop Date Current Medication? Ordering Clinician Indication Dosage Frequency Signature (SIG) Comments Components Source lidocaine (Xylocaine) 1 % injection 1 mL 05-09 16:00: 00 05-09 16:00 :00 No [id number] 1mL [facility] betamethaso ne acetate-bet amethasone sodium phosphate (Celestone) injection 30 mg 05-09 16:00: 00 05-09 16:00 :00 No [id number] 30mg [facility] acetaminoph en-codeine (Tylenol w/ Codeine #3) 300-30 MG tablet 04-07 00:00: 00 04-12 05:59 :00 No [id number] 1{tbl} Q6H Take 1 tablet by mouth every 6 (six) hours if needed for severe pain for up to 4 days. [facility] No known medications 912 12:04: 41 No No known medication s [facility] albuterol sulfate HFA 90 mcg/actuati on aerosol inhaler albuterol sulfate HFA 90 mcg/actuati on aerosol inhaler No albuterol sulfate HFA 90 mcg/actuat ion aerosol inhaler [facility] atorvastati n 40 mg tablet TAKE 1 TABLET BY MOUTH EVERY DAY atorvastati n 40 mg tablet TAKE 1 TABLET BY MOUTH EVERY DAY No atorvastat in 40 mg tablet TAKE 1 TABLET BY MOUTH EVERY DAY [facility] clonidine HCl 0.1 mg tablet TAKE 1 TABLET BY MOUTH THREE TIMES DAILY clonidine HCl 0.1 mg tablet TAKE 1 TABLET BY MOUTH THREE TIMES DAILY No clonidine HCl 0.1 mg tablet TAKE 1 TABLET BY MOUTH THREE TIMES DAILY [facility] clopidogrel 75 mg tablet TAKE 1 TABLET BY MOUTH DAILY clopidogrel 75 mg tablet TAKE 1 TABLET BY MOUTH DAILY No clopidogre l 75 mg tablet TAKE 1 TABLET BY MOUTH DAILY [facility] diclofenac sodium 75 mg tablet,noah yed release TAKE 1 TABLET BY MOUTH TWICE DAILY NEEDED diclofenac sodium 75 mg tablet,noah yed release TAKE 1 TABLET BY MOUTH TWICE DAILY NEEDED No diclofenac sodium 75 mg tablet,del ayed release TAKE 1 TABLET BY MOUTH TWICE DAILY NEEDED [facility] doxazosin 1 mg tablet TAKE 1 TABLET BY MOUTH TWICE DAILY doxazosin 1 mg tablet TAKE 1 TABLET BY MOUTH TWICE DAILY No doxazosin 1 mg tablet TAKE 1 TABLET BY MOUTH TWICE DAILY [facility] duloxetine 60 mg capsule,del ayed release TAKE 1 CAPSULE BY MOUTH DAILY duloxetine 60 mg capsule,del ayed release TAKE 1 CAPSULE BY MOUTH DAILY No duloxetine 60 mg capsule,de layed release TAKE 1 CAPSULE BY MOUTH DAILY [facility] estradiol 0.01% (0.1 mg/gram) vaginal cream Insert 0.5 g 3 times a week by vaginal route at bedtime for 90 days. estradiol 0.01% (0.1 mg/gram) vaginal cream Insert 0.5 g 3 times a week by vaginal route at bedtime for 90 days. No .5g Q56H estradiol 0.01% (0.1 mg/gram) vaginal cream Insert 0.5 g 3 times a week by vaginal route at bedtime for 90 days. [facility] folic acid 1 mg tablet TAKE 1 TABLET BY MOUTH EVERY DAY folic acid 1 mg tablet TAKE 1 TABLET BY MOUTH EVERY DAY No folic acid 1 mg tablet TAKE 1 TABLET BY MOUTH EVERY DAY [facility] Metamucil Metamucil No Metamucil [facility] omeprazole 20 mg capsule,del ayed release omeprazole 20 mg capsule,del ayed release No omeprazole 20 mg capsule,de layed release [facility] Stool Softener Stool Softener No Stool Softener [facility] trazodone 100 mg tablet TAKE 2 TABLETS BY MOUTH DAILY AT BEDTIME trazodone 100 mg tablet TAKE 2 TABLETS BY MOUTH DAILY AT BEDTIME No trazodone 100 mg tablet TAKE 2 TABLETS BY MOUTH DAILY AT BEDTIME [facility] valsartan 320 mg tablet valsartan 320 mg tablet No valsartan 320 mg tablet [facility] Vitamin D Vitamin D No Vitamin D [facility] vitamin K2 vitamin K2 No vitamin K2 [facility] Wixela Inhub 250 mcg-50 mcg/dose powder for inhalation Inhale 1 puff twice a day by inhalation route. Wixela Inhub 250 mcg-50 mcg/dose powder for inhalation Inhale 1 puff twice a day by inhalation route. No Wixela Inhub 250 mcg-50 mcg/dose powder for inhalation Inhale 1 puff twice a day by inhalation route. [facility] tramadol 50 mg tablet TAKE 1 TABLET BY MOUTH EVERY 12 HOURS NEEDED tramadol 50 mg tablet TAKE 1 TABLET BY MOUTH EVERY 12 HOURS NEEDED No tramadol 50 mg tablet TAKE 1 TABLET BY MOUTH EVERY 12 HOURS NEEDED [facility] Vital Signs Vital Name Observation Time Observation Value Comments S ource BP Diastolic 2023-07-17 00:00:00 80 mm[Hg] [facility] BP Systolic 2023-07-17 00:00:00 135 mm[Hg] [facility] Height 2023-07-17 00:00:00 63 [in_i] [facility] BMI (Body Mass Index) 2023-07-17 00:00:00 35.7 kg/m2 [facility] Body Weight 2023-07-17 00:00:00 201.4 [lb_av] [facility] Height 2023-05-24 00:00:00 63 [in_i] [facility] BP Systolic 2023-05-24 00:00:00 177 mm[Hg] [facility] BP Diastolic 2023-05-24 00:00:00 78 mm[Hg] [facility] BP Systolic 2023-05-03 00:00:00 150 mm[Hg] [facility] Height 2023-05-03 00:00:00 63 [in_i] [facility] BMI (Body Mass Index) 2023-05-03 00:00:00 34.8 kg/m2 [facility] BP Diastolic 2023-05-03 00:00:00 62 mm[Hg] [facility] Body Weight 2023-05-03 00:00:00 196.2 [lb_av] [facility] BMI (Body Mass Index) 2023-03-23 00:00:00 35.1 kg/m2 [facility] Body Weight 2023-03-23 00:00:00 198 [lb_av] [facility] Height 2023-03-23 00:00:00 63 [in_i] [facility] BP Diastolic 2023-03-23 00:00:00 68 mm[Hg] [facility] BP Systolic 2023-03-23 00:00:00 152 mm[Hg] [facility] Procedures Procedure Date / Time Performed Performing Clinicia n Source CT, abdomen + pelvis, w/wo contrast 2023-07-17 00:00:00 [facility] CT, abdomen + pelvis, w/wo contrast 2023-05-24 00:00:00 [facility] Repair of Rectocele 2023-03-16 00:00:[address] [facility] Cystoscopy 2022-05-25 00:00:00 [facility] Amy colmenares [place] INJECT TENDON SHEATH/LIGAMENT 2022-05-09 16:00:00 [facility] Procedure on Hand 2022-04-06 00:00:00 [facility] Surgical Procedure on Left Eye Region 2013-02-06 00:00:00 [facility] Lumpectomy of Right Breast 1996-02-07 00:00:00 [facility] Partial Hysterectomy 1971-02-06 00:00:00 [facility] Oral Surgery Procedure [facility] Excision of Mass [facility] En[facility] Start Date/Time End Date/Time Encounter Type Admission Type Attending Clinicians Care Facility Care Department Encounter ID Source 2022-04-06 16:13:51 Outpatient [facility] [id number] [facility] 2022-03-28 08:38:03 Outpatient [facility] [id number] [facility] 2022-03-11 10:26:42 Outpatient [facility] [id number] [facility] 2022-02-22 11:24:45 Outpatient [facility] [id number] [facility] 2022-02-21 13:52:13 Outpatient [facility] [id number] [facility] 2022-02-14 11:13:39 Outpatient [facility] [id number] [facility] 2021-10-18 11:15:15 Outpatient [facility] [id number] [facility] 2021-10-14 13:11:09 Outpatient [facility] [id number] [facility] 2021-09-24 07:10:36 Outpatient [facility] [id number] [facility] 2021-09-23 15:25:11 Outpatient [facility] [id number] [facility] 2023-07-17 00:00:00 2023-07-17 00:00:00 NEFTALI Jesus: Les Vieyra, [facility] [address], [place] [phone] , Ph. Critical access hospital - GC_GCBZW_Kimber Woodruff* [id number] [facility] 2023-05-24 00:00:00 2023-05-24 00:00:00 NEFTALI Jesus: Les Vieyra, [facility] [address], [place] [phone] , Ph. Critical access hospital - GC_GCBZW_Kimber Woodruff* [id number] [facility] 2023-05-03 00:00:00 2023-05-03 00:00:00 Charlee Guerra MD: [address], [address], [place] [address] , Ph. Critical access hospital - GC_GCBZW_iKmber Woodruff* [id number] [facility] 2023-03-23 00:00:00 2023-03-23 00:00:00 NEFTALI Kimbrough: [address], [address], [place] [address] , Ph. Critical access hospital - GC_GCBZW_Kimber levy Ranjan* [id number] [facility] 2023-03-09 00:00:00 2023-03-09 00:00:00 SAMUEL Woodson: [address], [address], [place] [address] , Ph. Critical access hospital - GC_GCBZW_Kimber levy Ranjan* [id number] [facility] 2023-02-27 00:00:00 2023-02-27 00:00:00 Outpatient GC_GCBZW_Ka diyala_S PRIV PRIV [id number] [facility] 2023-01-03 00:00:00 2023-01-03 00:00:00 Outpatient GC_GCBZW_Ka diyala_S PRIV PRIV [id number] [facility] 2022-12-08 00:00:00 2022-12-08 00:00:00 Outpatient GC_GCBZW_Ka diyala_S PRIV PRIV [id number] [facility] 2022-11-01 00:00:00 2022-11-01 00:00:00 Outpatient GC_GCBZW_Ka diyala_S PRIV PRIV [id number] [facility] 2022-11-01 00:00:00 2022-11-01 00:00:00 Outpatient GC_GCBZW_Ka diyala_S PRIV PRIV [id number] [facility] 2022-09-13 00:00:00 2022-09-13 00:00:00 Outpatient GC_GCBZW_Ka diyala_S PRIV PRIV [id number] [facility] 2022-08-24 00:00:00 2022-08-24 00:00:00 Outpatient GC_GCBZW_Ka diyala_S PRIV PRIV [id number] [facility] 2022-08-24 00:00:00 2022-08-24 00:00:00 Outpatient GC_GCBZW_Ka diyala_S PRIV PRIV [id number] [facility] 2022-08-24 00:00:00 2022-08-24 00:00:00 Outpatient GC_GCBZW_Ka diyala_S PRIV PRIV [id number] [facility] 2022-08-24 00:00:00 2022-08-24 00:00:00 Outpatient GC_GCBZW_Ka diyala_S PRIV PRIV [id number] [facility] 2022-08-19 00:00:00 2022-08-19 00:00:00 Outpatient GC_GCBZW_Ka diyala_S PRIV PRIV [id number] [facility] 2022-08-18 00:00:00 2022-08-18 00:00:00 Outpatient GC_GCBZW_Ka diyala_S PRIV PRIV [id number] [facility] 2022-08-17 00:00:00 2022-08-17 00:00:00 Outpatient GC_GCBZW_Ka diyala_S PRIV PRIV [id number] [facility] 2022-08-16 00:00:00 2022-08-16 00:00:00 Outpatient GC_GCBZW_Ka diyala_S PRIV PRIV [id number] [facility] 2022-08-15 00:00:00 2022-08-15 00:00:00 Outpatient GC_GCBZW_Ka diyala_S PRIV PRIV [id number] [facility] 2022-05-09 11:30:00 2022-05-09 12:45:09 Outpatient [facility] [id number] [facility] 2022-05-09 11:00:00 2022-05-09 12:44:57 Office Visit IBETH KIRBY [facility] 1 [id number] [facility] 2022-04-25 13:00:00 2022-04-25 13:00:00 Outpatient OREN MELLO [facility] [id number] [facility] 2022-04-19 09:30:00 2022-04-19 09:52:24 Outpatient [facility] [id number] [facility] 2022-04-19 09:30:00 2022-04-19 09:52:05 Office Visit Oren Mello [facility] 1 [id number] [id number] [facility] 2022-04-07 13:15:00 2022-04-07 14:13:33 Outpatient [facility] [id number] [facility] 2022-04-07 13:30:00 2022-04-07 14:11:55 Office Visit Ibeth Kirby [facility] 1 [id number] 350.1.13.58 [id number] [facility] 2022-03-25 11:00:00 2022-03-25 11:00:00 Outpatient OREN MELLO [facility] [id number] [facility] 2022-03-14 13:30:00 2022-03-14 13:59:11 Office Visit Oren Mello [facility] 1 [id number] [id number] [id number] [facility] 2021-10-18 12:00:00 2021-10-18 13:41:56 Office Visit OREN MELLO [facility] 1 [id number] [id number] [id number] [facility] 2021-10-18 00:00:00 2021-10-18 13:41:47 Outpatient [facility] [id number] [facility] 2021-10-14 12:30:00 2021-10-14 12:30:00 Outpatient OREN MELLO [facility] [id number] [facility] 2019-07-20 00:00:00 2019-07-20 00:00:00 Telephone [facility] [id number] [id number] [id number] 2019-07-20 00:00:00 2019-07-20 00:00:00 Telephone [facility] [id number] [id number] [id number] [id number] [facility] 2019-07-18 08:04:26 2019-07-18 08:19:26 Laboratory Only Only, Adc Test [facility] [id number] 350.1.13.10 [id number] [id number] 2019-07-18 08:04:26 2019-07-18 08:19:26 Laboratory Only Only, Adc Test Afsaneh Hamilton [facility] [id number] 350.1.13.10 [id number] [id number] [facility] 2019-07-18 08:00:00 2019-07-18 08:00:00 Outpatient AFSANEH LAGOS [facility] [id number] [facility] Results Test Description Test Time Test Comments Results Result Co mments Source [facility]dipstick[facility] panel - [id number] 10:39:00* Test Item Value Reference Range Interpretation Comme nts Leukocytes (test code = Leukocytes) Negative Nitrite (test code = Nitrite) negative Urobilinogen (test code = Urobilinogen) Normal Protein (test code = Protein) Negative pH (test code = pH) 6.0 Blood (test code = Blood) Negative Specific [place] (test code = Specific [place]) 1.015 Ketone (test code = Ketone) Negative Bilirubin (test code = Bilirubin) Negative Glucose (test code = Glucose) Negative Appearance (test code = Appearance) Slightly Cloudy Color (test code = Color) Pale Yellow [facility] Medicalmeasurement of post-voiding residual urine and/or bladder capacity (PROC)2023-05-03 11:57:00* Test Item Value Reference Range Interpretation Comme nts (PVR) (test code = (PVR)) 13 [facility] Medicalmeasurement of post-voiding residual urine and/or bladder capacity (PROC)2023-05-03 11:57:00* Test Item Value Reference Range Interpretation Comme nts (PVR) (test code = (PVR)) 13 [facility]
[2023-09-05 18:07] LABS: Absolute Basophils 0.1 K/uL (0-0.5); Absolute Eosinophils 0.1 K/uL (0-0.5); Absolute Lymphocytes (CBC) 2.1 K/uL (0.7-4.9); Absolute Neutrophil 3.4 K/uL (1.8-8.0); Basophils % 1.1 % (0-1.3); Eosinophils % 1.7 % (0-4.4); Hematocrit 37.4 % (36.0-45.0); Hemoglobin 11.8 g/dL (12.0-15.0); Lymphocytes % 31.7 % (15.3-44.8); MCH 27.3 pg (27.0-35.0); MCHC 31.5 g/dL (32.0-36.0); MCV 86.8 fL (80-100); MPV 7.5 fL (7.6-11.3); Monocytes % 14.2 % (3.3-12.3); Neutrophils % 51.3 % (41.7-73.7); Platelets 357 thou/uL (152-406); RBC Red Blood Cell Count 4.31 M/uL (3.86-4.86); Red Cell Distribution Width 15.7 % (12.1-15.2)
[2023-09-05 18:24] LABS: Albumin 3.7 g/dL (3.4-5.0); Albumin/Globulin Ratio 1.1 (1.1-1.8); Anion Gap 7.2 mEq/L (5.0-15.0); Bilirubin Total 0.3 mg/dL (0.2-1.0); Globulin 3.3 g/dL (2.3-3.5); Potassium 4.2 mEq/L (3.5-5.1)
--- NOTE | 2023-09-05 19:45 | RAD REPORT ---
EXAM DESCRIPTION: CT - Abdomen Pelvis W Contrast - 09/05/2023 7:00 pm CLINICAL HISTORY: ABD PAIN COMPARISON: No comparisons TECHNIQUE: Thin cut axial CT imaging of the abdomen and pelvis was performed following intravenous a dministration of iodinated contrast. Multiplanar reformats were generated and reviewed. All CT scans are performed using dose optimization technique as appropriate and may include automated exposure control or mA/KV adjustment according to patient size. FINDINGS: No suspicious findings in the lung bases. The liver, spleen, and pancreas show no suspicious findings. 1 cm left adrenal nodule, stable and not well characterized. Gallbladder is decompressed limiting evaluation, without suspicious gallbladder pulmonary findings otherwise. Right renal exophytic hypoattenuating 11 mm mid to lower pole cortical lesion is stable, possibly a s mall cyst. Symmetric renal function is seen with no hydronephrosis or suspicious renal mass. No dilated bowel loops or bowel wall thickening. No free air, free fluid or inflammatory stranding. N o hernia, mass or bulky lymphadenopathy. The urinary bladder is without significant finding. No suspicious bony findings. IMPRESSION: No acute intra-abdominal process. Stable incidental findings as above.
[2023-09-05] MEDS ORDERED: ONDANSETRON 4 MG/2 ML VIAL ONE (20:03)
[2023-09-05] MEDS ORDERED: NA CHLORIDE 0.9% 1,000 ML ONE (20:03)
[2023-09-05] MEDS ORDERED: MORPHINE 4 MG/ML SYR ONE (20:03)
[2023-09-05 23:00] LABS: Specific Gravity 1.019 (1.005-1.030); Urine Bilirubin NEGATIVE (Negative); Urine Blood Negative (Negative); Urine Clarity Clear (Clear); Urine Color Light-Yellow (Yellow); Urine Glucose NEGATIVE (Negative); Urine Ketones NEGATIVE (Negative); Urine Microscopic Reflex YN NO UMIC; Urine Nitrite NEGATIVE (Negative); Urine Protein NEGATIVE (Negative); Urine Urobilinogen Normal (Normal); Urine pH 6.5 (5.0-7.0)
--- NOTE | 2023-09-05 23:02 | EDPHYS ---
Physician Documentation [facility] Name: Zofia Castillo Age: 77 yrs Sex: Female : 1945 Arrival Date: 09/05/2023 Time: 17:22 Bed 9 Private MD: ED Physician Heath Flaherty HPI: 09/04 18:39 This 77 yrs old Female presents to ER via Wheelchair with complaints of stomach pain kb with gas. 18:39 Pt is a 77 year old female who presents for RLQ pain that started one hour [employer]. Denies kb n/v/d, fever. States she has never had this pain before. States she had no symptoms prior to pain starting. Historical: - Allergies: 17:51 Aspirin; ap3 - PMHx: 17:47 Hypertensive disorder; ap3 - Immunization history:: Client reports receiving the 1st dose of the Covid vaccine. - Infectious Disease History:: Denies. - Social history:: Smoking status: Patient denies any tobacco usage or history of. ROS: 18:39 Constitutional: As per HPI kb Exam: 18:39 Constitutional: This is a well developed, well nourished patient who is awake, alert, kb and in no acute distress. Head/Face: Normocephalic, atraumatic. ENT: Moist Mucous membranes Cardiovascular: Regular rate Respiratory: Respirations even and unlabored. No increased work of breathing. Talking in full sentences Skin: Warm, dry with normal turgor. Normal color. MS/ Extremity: Pulses equal, no cyanosis. Neurovascular intact. Full, normal range of motion. Neuro: Awake and alert, GCS 15, oriented to person, place, time, and situation. Moves all extremities. Normal gait. 18:39 Abdomen/GI: Inspection: abdomen appears normal, Bowel sounds: normal, Palpation: soft, in all quadrants, moderate abdominal tenderness, in the right lower quadrant, Vital Signs: 17:47 BP 156 / 81; Pulse 63; Resp 19; Temp 98.3; Pulse Ox 100% on R/A; Weight 88.45 kg; ap3 Height 5 ft. 3 in. ; Pain 8/10; 21:30 BP 173 / 73; Pulse 76; Resp 16; Pulse Ox 98% on R/A; jb4 22:30 BP 147 / 59; Pulse 68; Resp 16; Pulse Ox 97% on R/A; jb4 17:47 Body Mass Index 34.54 (88.45 kg, 160.02 cm) ap3 17:47 Pain Scale: Adult ap3 MDM: 17:42 Patient medically screened. kb 18:39 Data reviewed: vital signs, nurses notes. kb 23:10 Differential diagnosis: appendicitis, kidney stone, uti, nonspecific abd pain. kb Management of patient was discussed with the following: Primary Care Provider: Dr Kim. Historians other than the Patient: Spouse/Significant Other: . Counseling: I had a detailed discussion with the patient and/or guardian regarding the historical points, exam findings, and any diagnostic results supporting the discharge/admit diagnosis, lab results, radiology results, the need for outpatient follow up, a family practitioner, to return to the emergency department if symptoms worsen or persist or if there are any questions or concerns that arise at home. 09/04 17:49 Order name: CBC with Diff; Complete Time: 18:18 kb 09/04 17:49 Order name: CMP; Complete Time: 18:27 kb 09/04 17:49 Order name: Lipase; Complete Time: 18:27 kb 09/04 17:49 Order name: Urinalysis w/ reflexes; Complete Time: 23:00 kb 09/04 17:49 Order name: CT Abd/Pelvis - IV Contrast Only; Complete Time: 19:46 kb 09/04 17:49 Order name: IV Saline Lock; Complete Time: 17:58 kb 09/04 17:49 Order name: Labs collected and sent; Complete Time: 17:58 kb Administered Medications: 20:17 Drug: Ondansetron IVP 4 mg IVP once; over 2 minutes Route: IVP; Site: right antecubital;jb4 20:18 Drug: NS 0.9% IV 1000 ml IV at 1000 ml once Route: IV; Rate: 1000 ml; Site: right jb4 antecubital; 20:18 Drug: morphine IVP or IV 4 mg IVP once over 4 mins Route: IVP; Infused Over: 4 mins; jb4 Site: right antecubital; Disposition: 09/05 21:23 Co-signature as Attending Physician, Heath Flaherty MD I agree with the assessment and harvinder plan of care. Disposition Summary: 09/05/23 23:02 Discharge Ordered Notes: Location: Home kb Condition: Stable kb Diagnosis - Lower abdominal pain, unspecified kb Followup: kb - With: Emergency Department - When: As needed - Reason: Worsening of condition Followup: kb - With: Private Physician - When: 2 - 3 days - Reason: Recheck today's complaints, Continuance of care, Re-evaluation by your physician Discharge Instructions: - Discharge Summary Sheet kb - Abdominal Pain, Adult, [id number] kb Forms: - Medication Reconciliation Form kb - Antibiotic Education kb - Prescription Opioid Use kb - Patient Portal Instructions kb - Leadership Thank You Letter kb Signatures: Dispatcher [employer] EDMS Argenis Woodruff, CIRCUIT WALKER-C CIRCUIT WALKER-Heath Garcia MD MD cha Bryson, James RN RN jb4 Kisha Palencia RN RN ap3 Corrections: (The following items were deleted from the chart) 09/04 17:51 17:47 Allergies: No Known Allergies; ap3 ap3
--- NOTE | 2023-09-05 23:02 | ER ---
Nurse's Notes [facility] Name: Zofia Castillo Age: 77 yrs Sex: Female : 1945 Arrival Date: 09/05/2023 Time: 17:22 Bed 9 Private MD: Diagnosis: Lower abdominal pain, unspecified Presentation: 09/04 17:47 Chief complaint: Patient states: she has been having right lower abdominal pain that ap3 started approx one hour ago. patient rates her pain as an 8/10 on the pain scale. patient denies any nausea or vomiting. Coronavirus screen: At this time, the client does not indicate any symptoms associated with coronavirus-19. Ebola Screen: No symptoms or risks identified at this time. Initial Sepsis Screen: Does the patient meet any 2 criteria? No. Patient's initial sepsis screen is negative. Does the patient have a suspected source of infection? No. Patient's initial sepsis screen is negative. Risk Assessment: Do you want to hurt yourself or someone else? Patient reports no desire to harm self or others. Onset of symptoms was September 05, 2023 at 16:45. 17:47 Method Of Arrival: Wheelchair ap3 17:47 Acuity: CHRISTIN 3 ap3 Triage Assessment: 17:47 General: Appears uncomfortable, Behavior is cooperative, appropriate for age. Pain: ap3 Complains of pain in right lower quadrant Pain currently is 8 out of 10 on a pain scale. at worst was 10 out of 10 on a pain scale. Pain began suddenly. Neuro: Level of Consciousness is awake, alert, obeys commands, Oriented to person, place, time, situation. Cardiovascular: Patient's skin is warm and dry. Respiratory: Airway is patent Respiratory effort is even, unlabored, Respiratory pattern is regular, symmetrical. GI: Reports lower abdominal pain. Historical: - Allergies: 17:51 Aspirin; ap3 - PMHx: 17:47 Hypertensive disorder; ap3 - Immunization history:: Client reports receiving the 1st dose of the Covid vaccine. - Infectious Disease History:: Denies. - Social history:: Smoking status: Patient denies any tobacco usage or history of. Screenin:49 Abuse screen: Denies threats or abuse. Nutritional screening: No deficits noted. ap3 Tuberculosis screening: No symptoms or risk factors identified. Assessment: 22:33 Reassessment: Patient appears in no apparent distress at this time. Patient and/or jb4 family updated on plan of care and expected duration. Pain level reassessed. Patient is alert, oriented x 3, equal unlabored respirations, skin warm/dry/pink. Patient states feeling better. Vital Signs: 17:47 BP 156 / 81; Pulse 63; Resp 19; Temp 98.3; Pulse Ox 100% on R/A; Weight 88.45 kg; ap3 Height 5 ft. 3 in. ; Pain 8/10; 21:30 BP 173 / 73; Pulse 76; Resp 16; Pulse Ox 98% on R/A; jb4 22:30 BP 147 / 59; Pulse 68; Resp 16; Pulse Ox 97% on R/A; jb4 17:47 Body Mass Index 34.54 (88.45 kg, 160.02 cm) ap3 17:47 Pain Scale: Adult ap3 ED Course: 17:26 Patient arrived in ED. ra3 17:42 Argenis Woodruff FNP-C [facility]. kb 17:42 Heath Flaherty MD is Attending Physician. kb 17:49 Triage completed. ap3 17:49 Arm band placed on left wrist. ap3 17:58 CBC with Diff Sent. ap3 17:58 CMP Sent. ap3 17:58 Lipase Sent. ap3 17:58 Initial lab(s) drawn, by me, sent to lab. Inserted saline lock: 20 gauge in right ap3 antecubital area, using aseptic technique. Blood collected. 19:00 CT Abd/Pelvis - IV Contrast Only In Process Unspecified. EDMS 19:19 Kisha Palencia, RN is Primary Nurse. ap3 22:33 Leonides Tarn, JAZIEL is Primary Nurse. jb4 22:55 Urinalysis w/ reflexes Sent. rv1 Administered Medications: 20:17 Drug: Ondansetron IVP 4 mg IVP once; over 2 minutes Route: IVP; Site: right antecubital;jb4 20:18 Drug: NS 0.9% IV 1000 ml IV at 1000 ml once Route: IV; Rate: 1000 ml; Site: right jb4 antecubital; 20:18 Drug: morphine IVP or IV 4 mg IVP once over 4 mins Route: IVP; Infused Over: 4 mins; jb4 Site: right antecubital; Outcome: 23:02 Discharge ordered by MD. ingram 23:26 Patient left the ED. jb4 Signatures: Dispatcher [employer] EDArgenis Orellana, GLADIS LINDSAY-Leonides Jones RN RN jb4 Kisha Palencia RN RN ap3 Halle Hawkins rv1 Fiordaliza Lang ra3 Corrections: (The following items were deleted from the chart) 17:51 17:47 Allergies: No Known Allergies; ap3 ap3
[2023-09-06 06:15] VITALS: TEMP 98.3
[2023-09-06 06:26] VITALS: BP 147/59; O2SAT 97
== END 2023-09-05 23:26 | disposition home or self-care (01) ==
LOC: ER 17:22
DX: R10.31 Right lower quadrant pain (principal)
CPT/HCPCS: 85025; 36415; 81003; 83690; 80053; 74177; Q9967; J2405; J7030; 96374; 96375; 99284

== ENCOUNTER 2024-09-22 11:41 | Emergency (ER) | payer OTHER ==
--- OUTSIDE RECORDS SUMMARY | 2024-09-22 11:46 | XMS REPORT | Continuity of Care Document ---
Author Name Unknown Address [address] [facility] [place] [address] [facility][1] Address [address] 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 Role Phone Julio MONTGOMERY, Talha Tinoco Primary Care Physician [phone] Raji Weston Attending Clinician Unavailable LUCINDA JACQUES Attending Clinician Unavailable MARLA GUTIERREZ Attending Clinician Un available Philippe Cid Attending Clinician [phone] MARLA GUTIERREZ Attending Clinician Un available Natalie Marquez RN Attending Clinician Unavail able [email or web address] Attending Clinician UnavailDENNISE Bullard Attending Clinician Unavailable ANGEL MELLO Attending Clinician Unavailable ANGEL MELLO Attending Clinician Unadylan Robb RN, Deloris Vieyra Attending Clinician Unavaila markus Only, Adc Test Attending Clinician Unavailable Jt Hamilton MD Attending Clinician [phone] JT HAMILTON Attending Clinician Unavailable MARLA GUTIERREZ Admitting Clinician Un available Marla Gutierrez MD Admitting Clinician [email or web address] Admitting Clinician Pablo aparicio Payers Payer Name Policy Type Policy Number Effective Date Expirati on Date Source MEDICARE PART A AND B [id number] 2009 00:00:00 MEDICARE PART A AND B Medicare [id number] 2024 00:00:00 FOR LIFE Other [id number] 2024 00:00:00 [place] [employer] [id number] 2009 00:00:00 [employer] ( - PPO) [id number] Problems Condition Name Condition Details Condition Category Status Onset Date Resolution Date Last Treatment Date Treating Clinician Comments Source 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 Disease Active 2-11 00:00: 00 [facility] Primary osteoarthr itis of right knee Primary osteoarthr itis of right knee Disease Active 02-27 00:00: 00 [facility] Superficia l pain on intercours e Superficia l Pain on Intercours e Problem Active 1-14 00:00: 00 [facility] Osteoarthr itis of right knee joint Osteoarthr itis of Right Knee Joint Problem Active 2023-02 00:00: 00 [facility] Pain of right knee joint Pain of Right Knee Joint Problem Active 2023-02 00:00: 00 [facility] 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 Skeletal Muscle of Pelvis Problem Active 9-10 00:00: 00 [facility] Constipati on Constipati on Problem Active 8-17 00:00: 00 [facility] Overactive urinary bladder Overactive Urinary Bladder Problem Active 8-17 00:00: 00 [facility] Fatigue Fatigue Problem Active 6-10 00:00: 00 [facility] Low back pain Low Back Pain Problem Active 4-17 00:00: 00 [facility] Pain in pelvis Pain in Pelvis Problem Active 4-17 00:00: 00 [facility] Dysuria Dysuria [...] ce Problem [facility] 0 4[facility]10 [facility] Tr[facility] middle finger of left hand Trigger middle finger of left hand Disease Active 0 4-03 00:00: 00 [facility] Urinary incontinen ce Urinary Incontinen ce Problem Active 0 2-14 00:00: 00 [facility] Degenerati ve arthritis of distal interphala [...] hand Pain of right hand Disease Active 2022-0 9-12 00:00: 00 [facility] Pain of right middle finger Pain of right middle finger Disease Active 9 00:00: 00 [facility] Stiffness of finger joint of right hand Stiffness of finger joint of right hand Disease Active 10-18 00:00: 00 [facility] Essential hypertensi on Essential Hypertensi on [...] Propensi ty to adverse reaction s Active Shortness of breath 2-14 00:00: 00 [facility] Aspirin Propensi ty to adverse reaction s Active 10-18 00:00: 00 [facility] Aspirin Allergy to substanc e Active [facility] Mold Allergy to substanc e Active [facility] NO KNOWN ALLERGIE S Drug Class Active [facility] Social History Social Habit Start Date Stop Date Quantity Comments Source Gender identity 2023-04-29 18:51:37 Identifies as female gender (finding) [facility] ASSERTION Not [facility] Alcoholic beverage intake 2024-03-28 00:00:00 2024-03-28 00:00:00 Lifetime non-drinker (finding) [facility] History of Social function 2024-03-28 00:00:00 2024-03-28 00:00:00 [facility] Tobacco use and exposure 2023-09-12 00:00:00 2023-09-12 00:00:00 Smokeless tobacco non-user [facility] Exposure to SARS-CoV-2 (event) 2022-04-29 00:00:00 2022-05-09 10:18:00 Not sure [facility] Sex 2021-09-23 15:25:02 2021-09-23 15:25:02 Female (finding) [facility] Sex assigned at 1945 00:00[birth year]00 1945 00:00:00 F [facility] Smoking Status Start Date Stop Date Source Tobacco smoking consumption unknown [facility] Never smoked tobacco [facility] Medications Ordered Medication Name Filled Medication Name Start Date Stop Date Current Medication? Ordering Clinician Indication Dosage Frequency Signature (SIG) Comments Components Source gabapentin (Neurontin) 100 MG capsule 07-26 11:23: 18 Yes 100mg QD Take 100 mg by mouth in the morning. [facility] HYDROcodone -acetaminop hen ([place]) 7.5-325 MG tablet - 00:00: 00 Yes [id number] 1{tbl} Q6H Take 1 tablet by mouth every 6 (six) hours if needed for severe pain. [facility] HYDROcodone -acetaminop hen ([place]) 7.5-325 MG tablet - 00:00: 00 Yes [id number] 1{tbl} Q6H Take 1 tablet by mouth every 6 (six) hours if needed for severe pain. [facility] oxyCODONE-a cetaminophe n (Percocet) 10-325 MG tablet - 00:00: 00 Yes [id number] 1{tbl} Q6H Take 1 tablet by mouth every 6 (six) hours if needed for severe pain. [facility] hydrOXYzine pamoate (Vistaril) 50 MG capsule 2- 00:00: 00 Yes [id number] 50mg [id number] 3D Take 1 capsule (50 mg total) by mouth 3 (three) times a day if needed for itching for up to 10 days. [facility] oxyCODONE-a cetaminophe n (Percocet) 10-325 MG tablet 2- 00:00: 00 Yes [id number] 1{tbl} Q6H Take 1 tablet by mouth every 6 (six) hours if needed for severe pain. [facility] apixaban (Eliquis) 2.5 MG tablet apixaban (Eliquis) 2.5 MG tablet 03-29 00:00: 00 04-19 23:59 :00 No 2.5mg Q.5D Take 2.5 mg by mouth in the morning and 2.5 mg in the evening. Do not start before March 29, 2024. [facility] cefadroxil (Duricef) 500 MG capsule cefadroxil (Duricef) 500 MG capsule 03-29 00:00: 00 04-08 23:59 :00 No 500mg Q.5D Take 500 mg by mouth in the morning and 500 mg in the evening. Do not start before March 29, 2024. [facility] acetaminoph en (Tylenol) tablet 1,000 mg acetaminoph en (Tylenol) tablet 1,000 mg 03-28 22:00: 00 Yes 1000mg [id number] 3D 1,000 mg, Oral, Every 8 hours scheduled, First dose on Mon03/28/24 at 2200, Phase II/On Unit, Max acetaminop hen from all sources (geriatric ) = 3,250 mg in 24 hrs. [facility] traZODone (Desyrel) 100 MG tablet traZODone (Desyrel) 100 MG tablet 03-28 20:05: 17 Yes 2{tbl} Take 2 tablets by mouth at bedtime. [facility] DULoxetine (Cymbalta) [address] capsule DULoxetine (Cymbalta) [address] capsule 03-28 20:05: 17 Yes 1{capsu le} QD Take 1 capsule by mouth 1 time each day. [facility] albuterol HFA 90 mcg/act inhaler albuterol HFA 90 mcg/act inhaler 03-28 20:05: 17 Yes 1{puff} Inhale 1 puff if needed. [facility] doxazosin (Cardura) 1 MG tablet doxazosin (Cardura) 1 MG tablet 03-28 20:05: 17 Yes 1{tbl} Q.5D Take 1 tablet by mouth in the morning and 1 tablet in the evening. [facility] cloNIDine (Catapres) 0.1 MG tablet cloNIDine (Catapres) 0.1 MG tablet 03-28 20:05: 17 Yes 1{tbl} Q.[id number] 3D Take 1 tablet by mouth in the morning and 1 tablet at noon and 1 tablet in the evening. [facility] HYDROcodone -acetaminop hen ([place]) 5-325 MG tablet HYDROcodone -acetaminop hen ([place]) 5-325 MG tablet 03-28 20:05: 17 Yes 1{tbl} Q.5D Take 1 tablet by mouth in the morning and 1 tablet in the evening. [facility] Multiple Vitamins-Mi nerals (PreserVisi on AREDS 2) capsule Multiple Vitamins-Mi nerals (PreserVisi on AREDS 2) capsule 03-28 20:05: 17 Yes 2{capsu le} QD Take 2 capsules by mouth 1 time each day. [facility] sodium chloride (NS) 0.9 % flush 10 mL sodium chloride (NS) 0.9 % flush 10 mL 03-28 18:30: 00 Yes 10mL Q12H 10 mL, Intravenou s, Every 12 hours, First dose on Mon03/28/24 at 1830, Phase II/On Unit, Administer at least once every 12 hours [facility] ceFAZolin (Ancef) 2 g in sterile water injection ceFAZolin (Ancef) 2 g in sterile water injection 03-28 18:30: 00 03-29 18:29 :00 No 2g Q8H 2 g, Intravenou s, at 200 mL/hr, Administer over 6 Minutes, Every 8 hours, First dose on Mon03/28/24 at 1830, For 3 doses, Phase II/On Unit, SCIP antibiotic - pls verify FIRST DOSE of post surgical antibiotic administra tion and schedule accordingl y. Reconstitu te each vial with 10 mL sterile water for injection. (20 mL total needed) Prepare dose at bedside immediatel y prior to administra tion. Reconstitu tion: Shake immediatel y and vigorously . Withdraw entire contents of the 1st vial and give IV push slowly over specified time. Withdraw entire contents of the 2nd vial and give IV push slowly over specified time., Suspected Indication (Select all that apply): Surgical Prophylaxi s [facility] HYDROcodone -acetaminop hen ([place]) 10-325 MG per tablet 1 tablet HYDROcodone -acetaminop hen ([place]) 10-325 MG per tablet 1 tablet 03-28 18:22: 14 Yes 1{tbl} Q6H 1 tablet, Oral, Every 6 hours PRN, severe pain (7-10), Starting on Mon03/28/24 at 1821, Recovery & On Unit [facility] Epic sodium chloride 0.9 % infusion 250 mL sodium chloride 0.9 % infusion 250 mL 03-28 18:22: 07 Yes 250mL 250 mL, Intravenou s, As needed, For antibiotic flush to clear line, replace bag every 24 hours., Starting on Mon03/28/24 at 1821, Phase II/On Unit [facility] Epic sodium chloride (NS) 0.9 % flush 10 mL sodium chloride (NS) 0.9 % flush 10 mL 03-28 18:22: 07 Yes 10mL 10 mL, Intravenou s, As needed, line care, Line Flush, Starting on Mon03/28/24 at 1821, Phase II/On Unit [facility] sennosides (Senokot) tablet 17.2 mg sennosides (Senokot) tablet 17.2 mg 03-28 18:22: 07 Yes 2{tbl} QD 17.2 mg (2 tablet), Oral, Nightly PRN, constipati on, Starting on Mon03/28/24 at 1821, Phase II/On Unit, Hold for more than 1 loose stool in 24 hrs. [facility] ondansetron (Zofran) injection 4 mg ondansetron (Zofran) injection 4 mg 03-28 18:22: 07 Yes 4mg Q6H 4 mg, Intravenou s, Every 6 hours PRN, nausea, vomiting, Starting on Mon03/28/24 at 1821, Phase II/On Unit [facility] naloxone (Narcan) injection 0.04 mg naloxone (Narcan) injection 0.04 mg 03-28 18:22: 07 Yes .04mg 0.04 mg, Intravenou s, As needed, opioid reversal, every 2 mins PRN for Narcotic Reversal, Starting on Malaika 03/28/24 at 1822, For 8 doses, Phase II/On Unit, Give up to 8 doses of 0.04 mg as needed to reverse over sedation. Keep available for immediate use. Call ordering physician STAT. (Dilute 0.4 mg/mL in 9 mL of saline) [facility] oxyCODONE (Roxicodone ) immediate release tablet 5 mg oxyCODONE (Roxicodone ) immediate release tablet 5 mg 03-28 18:22: 07 04-02 18:21 :07 No 5mg Q6H 5 mg, Oral, Every 6 hours PRN, severe pain (7-10), Pain score 7-10, Starting on Malaika 03/28/24 at 1822, For 5 days, Phase II/On Unit, Hold for sedation and call MD. [facility] oxyCODONE (Roxicodone ) solution 2.5 mg oxyCODONE (Roxicodone ) solution 2.5 mg 03-28 18:22: 07 04-02 18:21 :07 No 2.5mg Q6H 2.5 mg, Oral, Every 6 hours PRN, moderate pain (4-6), Pain Score 4-6, Starting on Malaika 03/28/24 at 1822, For 5 days, Phase II/On Unit, Hold for sedation and call MD. [facility] HYDROmorpho ne (Dilaudid) injection 0.5 mg HYDROmorpho ne (Dilaudid) injection 0.5 mg 03-28 15:31: 20 Yes .5mg 0.5 mg, Intravenou s, Every 5 min PRN, severe pain (7-10), Starting on Malaika 03/28/24 at 1531, For 4 doses, Recovery (only) [facility] glucagon injection 1 mg glucagon injection 1 mg 2025-0 2-20 15:31: 20 Yes 1mg 1 mg, Intramuscu lar, As needed, For BG < 70 mg/dL if no IV access and patient is either Unconsciou s, unable to swallow or npo, Starting on Malaika 03/28/24 at 1531, Recovery (only), For BG < 70 mg/dL if no IV access and patient is either Unconsciou s, unable to swallow or npo and notify MD. [facility] Epic dextrose 50 % solution 25 g dextrose 50 % solution 25 g 03-28 15:31: 20 Yes 25g 25 g, Intravenou s, As needed, other, if Blood Glucose </= 50 mg/dL, Starting on Malaika 03/28/24 at 1531, Recovery (only), If BG </=50 mg/dL, give 50 mL of D50W IV push STAT and notify MD. [facility]ias Reed Epic dextrose 50 % solution 12.5 g dextrose 50 % solution 12.5 g 03-28 15:31: 20 Yes 12.5g 12.5 g, Intravenou s, As needed, low blood sugar, if Blood Glucose 51- 69 mg/dL, Starting on Malaika 03/28/24 at 1531, Recovery (only), For BG 51-69 mg/dL and patient UNCONSCIOU S OR UNABLE TO SWALLOW OR NPO: Give 25 mL of D50W IV push and notify MD. [facility] promethazin e (Phenergan) 12.5 mg in sodium chloride 0.9 % 50 mL IVPB (RN PREP) promethazin e (Phenergan) 12.5 mg in sodium chloride 0.9 % 50 mL IVPB (RN PREP) 03-28 15:31: 20 Yes 12.5mg 12.5 mg, Intravenou s, at 100 mL/hr, Administer over 30 Minutes, Once as needed, nausea, vomiting, not responsive to dexamethas one., Starting on Malaika 03/28/24 at 1531, For 1 dose, Recovery (only), Do not give if patient is sedated or has GJ. [facility] Epic albuterol (2.5 MG/3ML) 0.083% nebulizer solution 2.49 mg albuterol (2.5 MG/3ML) 0.083% nebulizer solution 2.49 mg 2024-0 03-28 15:31: 20 Yes 2.49mg 2.49 mg, Nebulizati on, Every 20 min PRN, wheezing, Starting on Malaika 03/28/24 at 1531, Recovery (only) [facility] naloxone (Narcan) injection 0.04 mg naloxone (Narcan) injection 0.04 mg 2024-0 03-28 15:31: 20 Yes .04mg 0.04 mg, Intravenou s, As needed, opioid reversal, every 2 minutes PRN to reverse sedation, Starting on Malaika 03/28/24 at 1531, For 8 doses, Recovery (only), Keep available for immediate use. Stop epidural infusion. Call Anesthesio logist STAT and Notify Pain Service (Dilute 0.4mg/mL in 9 mL saline) [facility] HYDROmorpho ne PF (Dilaudid) injection 0.5 mg HYDROmorpho ne PF (Dilaudid) injection 0.5 mg 2024-0 03-28 15:31: 20 Yes .5mg 0.5 mg, Intravenou s, Every 10 min PRN, severe pain (7-10), Starting on Malaika 03/28/24 at 1531, For 4 doses, Recovery (only), Hold for respirator y rate or 8 or less. [facility] HYDROmorpho ne PF (Dilaudid) injection 0.2 mg HYDROmorpho ne PF (Dilaudid) injection 0.2 mg 0 03-28 15:31: 20 Yes .2mg 0.2 mg, Intravenou s, Every 10 min PRN, moderate pain (4-6), Starting on Malaika 03/28/24 at 1531, For 5 doses, Recovery (only), Hold for respirator y rate or 8 or less. [facility] labetalol injection 10 mg labetalol injection 10 mg 2024-0 03-28 15:31: 20 Yes 10mg 10 mg, Intravenou s, Every 5 min PRN, high blood pressure, Systolic blood pressure greater than 160 mmHg and/or Diastolic blood pressure greater than 90 mmHg. Hold if Heart Rate less than 60 beats per minute., Starting on Malaika 03/28/24 at 1531, Recovery (only), 1st line for HTN. Tobias montiel Jolley Epic hydrALAZINE injection 10 mg hydrALAZINE injection 10 mg 03-28 15:31: 20 Yes 10mg 10 mg, Intravenou s, Every 30 min PRN, high blood pressure, Systolic blood pressure greater than 160 mmHg and/or Diastolic blood pressure greater than 90 mmHg. Hold is Heart Rate greater than 100 beats per minute., Starting on Malaika 03/28/24 at 1531, For 2 doses, Recovery (only), 2nd line for HTN. Tobias montiel Derek Epic glucagon injection 1 mg glucagon injection 1 mg 03-28 15:06: 47 Yes 1mg 1 mg, Intramuscu lar, As needed, For BG < 70 mg/dL if no IV access and patient is either Unconsciou s, unable to swallow or npo, Starting on Malaika 03/28/24 at 1506, Recovery (only), For BG < 70 mg/dL if no IV access and patient is either Unconsciou s, unable to swallow or npo and notify . Tobias montiel Jolley Epic dextrose 50 % solution 25 g dextrose 50 % solution 25 g 03-28 15:06: 47 Yes 25g 25 g, Intravenou s, As needed, other, if Blood Glucose </= 50 mg/dL, Starting on Malaika 03/28/24 at 1506, Recovery (only), If BG </=50 mg/dL, give 50 mL of D50W IV push STAT and notify MD. Tobias montiel Jolley Epic dextrose 50 % solution 12.5 g dextrose 50 % solution 12.5 g 03-28 15:06: 47 Yes 12.5g 12.5 g, Intravenou s, As needed, low blood sugar, if Blood Glucose 51- 69 mg/dL, Starting on Malaika 03/28/24 at 1506, Recovery (only), For BG 51-69 mg/dL and patient UNCONSCIOU S OR UNABLE TO SWALLOW OR NPO: Give 25 mL of D50W IV push and notify MD. [facility] Epic naloxone (Narcan) injection 0.04 mg naloxone (Narcan) injection 0.04 mg 03-28 15:06: 47 Yes .04mg 0.04 mg, Intravenou s, As needed, opioid reversal, every 2 minutes PRN to reverse sedation, Starting on Malaika 03/28/24 at 1506, For 8 doses, Recovery (only), Keep available for immediate use. Stop epidural infusion. Call Anesthesio logist STAT and Notify Pain Service (Dilute 0.4mg/mL in 9 mL saline) [facility] flumazenil (Romazicon) injection 0.2 mg flumazenil (Romazicon) injection 0.2 mg 03-28 15:06: 47 Yes .2mg 0.2 mg, Intravenou s, As needed, Starting on Malaika 03/28/24 at 1506, Until Discontinu ed [facility]ias Long fentaNYL (Sublimaze) injection 50 mcg fentaNYL (Sublimaze) injection 50 mcg 03-28 15:06: 47 Yes 50ug 50 mcg, Intravenou s, Every 5 min PRN, severe pain (7-10), Starting on Malaika 03/28/24 at 1506, For 4 doses, Recovery (only), Hold for respirator y rate of 8 or less. [facility] oxyCODONE (Roxicodone ) immediate release tablet 5 mg oxyCODONE (Roxicodone ) immediate release tablet 5 mg 03-28 15:06: 47 03-28 15:45 :00 No 5mg 5 mg, Oral, Once as needed, moderate pain (4-6), Starting on Malaika 03/28/24 at 1506, For 1 dose, Recovery (only) [facility] Epic sodium chloride 0.9 % infusion sodium chloride 0.9 % infusion 03-28 09:45: 00 03-29 09:44 :00 No 75mL/h 75 mL/hr, Intravenou s, Continuous , Starting on Malaika 03/28/24 at 0945, For 1 day, Preprocedu re, Anesthesia Pre-op. LR or NS. [facility]ias [facility] Epic lactated Ringer's infusion lactated Ringer's infusion 03-28 09:45: 00 03-29 12:52 :00 No 75mL/h 75 mL/hr, Intravenou s, Continuous , Starting on Malaika 03/28/24 at 0945, For 1 day, Preprocedu re, Anesthesia Pre-op. LR or NS [facility] HYDROcodone -acetaminop hen ([place]) 7.5-325 MG tablet HYDROcodone -acetaminop hen ([place]) 7.5-325 MG tablet -20 00:00: 00 Yes 49 1{tbl} Q6H Take 1 tablet by mouth every 6 hours if needed for severe pain (7-10). [facility] apixaban (Eliquis) 2.5 MG tablet 03-27 00:00: 00 07-26 00:00 :00 No [id number] 2.5mg Q.5D Take 1 tablet (2.5 mg total) by mouth in the morning and 1 tablet (2.5 mg total) in the evening. Do all this for 21 days. [facility] gabapentin (Neurontin) 100 MG capsule gabapentin (Neurontin) 100 MG capsule 2-04 00:00: 00 Yes 1{capsu le} QD Take 1 capsule by mouth 1 time each day. [facility] omeprazole (PriLOSEC) [address] capsule omeprazole (PriLOSEC) [address] capsule 2-03 00:00: 00 Yes 20mg Take 20 mg by mouth in the morning and 20 mg in the evening. Take before meals. [facility] Metamucil Metamucil 02-19 00:00: 00 No Metamucil [facility] Vitamin D Vitamin D - 00:00: 00 No Vitamin D [facility] vitamin K2 vitamin K2 -14 00:00: 00 No vitamin K2 [facility] magnesium magnesium - 00:00: 00 No magnesium [facility] Wixela Inhub 250-50 MCG/ACT diskus inhaler Wixela Inhub 250-50 MCG/ACT diskus inhaler 1-09 00:00: 00 Yes 1{puff} QD Inhale 1 puff 1 time each day. [facility] nitroglycer in (Nitrostat) 0.4 MG SL tablet nitroglycer in (Nitrostat) 0.4 MG SL tablet 1-09 00:00: [address] 0.4 mg under the tongue every 5 minutes if needed. [facility] methylPREDN ISolone acetate (DEPO-Medro l) injection 40 mg 09-17 15:30: 00 09-17 15:30 :00 No [id number] 40mg 40 mg, Intra-arik cular, Once PRN Procedure, Starting on Mon09/18/23 at 1030, For 1 dose [facility] lidocaine (Xylocaine) 1 % injection 1 mL 05-09 16:00: 00 05-09 16:00 :00 No [id number] 1mL [facility] betamethaso ne acetate-bet amethasone sodium phosphate (Celestone) injection 30 mg 05-09 16:00: 00 05-09 16:00 :00 No [id number] 30mg [facility] acetaminoph en-codeine (Tylenol w/ Codeine #3) 300-30 MG tablet 3-02 00:00: 00 04-12 05:59 :00 No [id number] 1{tbl} Q6H Take 1 tablet by mouth every 6 (six) hours if needed for severe pain for up to 4 days. [facility] docusate sodium (Colace) 100 MG capsule docusate sodium (Colace) 100 MG capsule 2-17 00:00: 00 Yes 100mg 100 mg = 1 cap, PO, BID, # 12 cap, 0 Refill(s), called to pharmacy [facility] valsartan (Diovan) 320 MG tablet valsartan (Diovan) 320 MG tablet 2-10 00:00: 00 Yes 320mg 320 mg = 1 tab, PO, Daily, # 30 tab, 0 Refill(s) [facility] folic acid (Folvite) 1 MG tablet folic acid (Folvite) 1 MG tablet 2-10 00:00: 00 Yes 1mg 1 mg = 1 tab, PO, Daily, # 30 tab, 0 Refill(s) [facility] clopidogrel (Plavix) 75 MG tablet clopidogrel (Plavix) 75 MG tablet 03-18 00:00: 00 Yes 75mg 75 mg = 1 tab, PO, Daily, # 30 tab, 0 [facility]) 40 MG tablet atorvastati n (Lipitor) 40 MG tablet 2 00:00: 00 Yes 40mg 40 mg = 1 tab, PO, Bedtime, # 30 tab, 0 [facility] hydroxychlo roquine (Plaquenil) 200 MG tablet hydroxychlo roquine (Plaquenil) 200 MG tablet 2 00:00: 00 Yes 400mg 400 mg = 2 tab, PO, Daily, # 180 tab, 0 [facility] No known medications 912 12:04: 41 No No known medication [facility] amoxicillin 500 mg capsule TAKE 1 CAPSULE BY MOUTH THREE TIMES DAILY amoxicillin 500 mg capsule TAKE 1 CAPSULE BY MOUTH THREE TIMES DAILY No amoxicilli n 500 mg capsule TAKE 1 CAPSULE BY MOUTH THREE TIMES DAILY [facility] celecoxib 200 mg capsule TAKE 1 CAPSULE BY MOUTH TWICE DAILY celecoxib 200 mg capsule TAKE 1 CAPSULE BY MOUTH TWICE DAILY No celecoxib 200 mg capsule TAKE 1 CAPSULE BY MOUTH TWICE DAILY [facility] estradiol 0.01% (0.1 mg/gram) vaginal cream INSERT 0.5 GRAM VAGINALLY DAILY estradiol 0.01% (0.1 mg/gram) vaginal cream INSERT 0.5 GRAM VAGINALLY DAILY No estradiol 0.01% (0.1 mg/gram) vaginal cream INSERT 0.5 GRAM VAGINALLY DAILY [facility] Restasis 0.05 % eye drops in a dropperette INSTILL 1 DROP BOTH EYES TWICE DAILY Restasis 0.05 % eye drops in a dropperette INSTILL 1 DROP BOTH EYES TWICE DAILY No Restasis 0.05 % eye drops in a dropperett e INSTILL 1 DROP BOTH EYES TWICE DAILY [facility] tramadol 50 mg tablet TAKE 2 TABLETS BY MOUTH EVERY 12 HOURS NEEDED tramadol 50 mg tablet TAKE 2 TABLETS BY MOUTH EVERY 12 HOURS NEEDED No tramadol 50 mg tablet TAKE 2 TABLETS BY MOUTH EVERY 12 HOURS NEEDED [facility] atorvastati n 40 mg tablet TAKE 1 TABLET BY MOUTH EVERY DAY atorvastati n 40 mg tablet TAKE 1 TABLET BY MOUTH EVERY DAY No atorvastat in 40 mg tablet TAKE 1 TABLET BY MOUTH EVERY DAY [facility] clopidogrel 75 mg tablet TAKE 1 TABLET BY MOUTH DAILY clopidogrel 75 mg tablet TAKE 1 TABLET BY MOUTH DAILY No clopidogre l 75 mg tablet TAKE 1 TABLET BY MOUTH DAILY [facility] estradiol 0.01% (0.1 mg/gram) vaginal cream Insert 0.5 g 3 times a week by vaginal route for 90 days. estradiol 0.01% (0.1 mg/gram) vaginal cream Insert 0.5 g 3 times a week by vaginal route for 90 days. No .5g Q56H estradiol 0.01% (0.1 mg/gram) vaginal cream Insert 0.5 g 3 times a week by vaginal route for 90 days. [facility] Wixela Inhub 250 mcg-50 mcg/dose powder for inhalation Inhale 1 puff twice a day by inhalation route. Wixela Inhub 250 mcg-50 mcg/dose powder for inhalation Inhale 1 puff twice a day by inhalation route. No Wixela Inhub 250 mcg-50 mcg/dose powder for inhalation Inhale 1 puff twice a day by inhalation route. [facility] Myrbetriq 50 mg tablet,exte nded release TAKE 1 TABLET BY MOUTH EVERY DAY Myrbetriq 50 mg tablet,exte nded release TAKE 1 TABLET BY MOUTH EVERY DAY No 1 Q1D Myrbetriq 50 mg tablet,ext ended release TAKE 1 TABLET BY MOUTH EVERY DAY [facility] Restasis 0.05 % eye drops in a dropperette INSTILL 1 DROP BOTH EYES TWICE DAILY Restasis 0.05 % eye drops in a dropperette INSTILL 1 DROP BOTH EYES TWICE DAILY No Restasis 0.05 % eye drops in a dropperett e INSTILL 1 DROP BOTH EYES TWICE DAILY [facility] diclofenac sodium 75 mg tablet,noah yed release diclofenac sodium 75 mg tablet,noah yed release No diclofenac sodium 75 mg tablet,del ayed release [facility] lidocaine HCl 2 % topical gel Apply 1 application as needed by topical route as needed for 30 days, for urethral dilation.. lidocaine HCl 2 % topical gel Apply 1 application as needed by topical route as needed for 30 days, for urethral dilation.. No 1applic ation(s ) lidocaine HCl 2 % topical gel Apply 1 applicatio n as needed by topical route as needed for 30 days, for urethral dilation.. [facility] Vital Signs Vital Name Observation Time Observation Value Comments S jose maria Body height 2024-07-26 16:21:00 160 [facility] Body weight 2024-07-26 16:21:00 91.173 [facility] BMI 2024-07-26 16:21:00 35.61 kg/m2 [facility] Systolic blood pressure 2024-03-28 19:30:00 145 mm[Hg] [facility] Diastolic blood pressure 2024-03-28 19:30:00 57 mm[Hg] [facility] Heart rate 2024-03-28 19:30:00 90 /min [facility] Body temperature 2024-03-28 19:30:00 36.67 Tasneem [facility] Respiratory rate 2024-03-28 19:30:00 16 /min [facility] Oxygen saturation in Arterial blood by Pulse oximetry 2024-03-28 19:30:00 98 /min [facility] Systolic blood pressure 2024-03-28 19:30:00 145 mm[Hg] [facility] Diastolic blood pressure 2024-03-28 19:30:00 57 mm[Hg] [facility] Heart rate 2024-03-28 19:30:00 90 /min [facility] Body temperature 2024-03-28 19:30:00 36.67 Tasneem [facility] Respiratory rate 2024-03-28 19:30:00 16 /min [facility] Oxygen saturation in Arterial blood by Pulse oximetry 2024-03-28 19:30:00 98 /min [facility] Body height 2024-02-26 18:51:00 160 [facility] Body weight 2024-02-26 18:51:00 90.719 kg [facility] BMI 2024-02-26 18:51:00 [facility]43 [facility] Weight 2024-02-20 00:00:00 201.2 [lb_av] [facility] BMI (Body Mass Index) 2024-02-20 00:00:00 35.6 kg/m2 [facility] BP Systolic 2024-02-20 00:00:00 169 mm[Hg] [facility] Height 2024-02-20 00:00:00 63 [in_i] [facility] BP Diastolic 2024-02-20 00:00:00 66 mm[Hg] [facility] Height 2023-12-26 00:00:00 63 [in_i] [facility] Body Weight 2023-12-26 00:00:00 196 [lb_av] [facility] BP Diastolic 2023-10-17 00:00:00 72 mm[Hg] [facility] Body Weight 2023-10-17 00:00:00 195 [lb_av] [facility] Height 2023-10-17 00:00:00 63 [in_i] [facility] BMI (Body Mass Index) 2023-10-17 00:00:00 34.5 kg/m2 [facility] BP Systolic 2023-10-17 00:00:00 140 mm[Hg] [facility] Body height 2023-09-18 15:06:00 160 [facility] Body weight 2023-09-18 15:06:00 89.812 kg [facility] BMI 2023-09-18 15:06:00 35.07 kg/m2 [facility] BMI (Body Mass Index) 2023-08-29 00:00:00 35.1 kg/m2 [facility] BP Diastolic 2023-08-29 00:00:00 75 mm[Hg] [facility] Body Weight 2023-08-29 00:00:00 198 [lb_av] [facility] BP Systolic 2023-08-29 00:00:00 187 mm[Hg] [facility] Height 2023-08-29 00:00:00 63 [in_i] [facility] BP Diastolic 2023-07-17 00:00:00 80 mm[Hg] [facility] BP Systolic 2023-07-17 00:00:00 135 mm[Hg] [facility] Height 2023-07-17 00:00:00 63 [in_i] [facility] BMI (Body Mass Index) 2023-07-17 00:00:00 35.7 kg/m2 [facility] Body Weight 2023-07-17 00:00:00 201.4 [lb_av] [facility] Height 2023-05-24 00:00:00 63 [in_i] [facility] BP Systolic 2023-05-24 00:00:00 177 mm[Hg] [facility] BP Diastolic 2023-05-24 00:00:00 78 mm[Hg] [facility] BP Systolic 2023-05-03 00:00:00 150 mm[Hg] [facility] Height 2023-05-03 00:00:00 63 [in_i] [facility] BMI (Body Mass Index) 2023-05-03 00:00:00 34.8 kg/m2 [facility] BP Diastolic 2023-05-03 00:00:00 62 mm[Hg] [facility] Body Weight 2023-05-03 00:00:00 196.2 [lb_av] [facility] BMI (Body Mass Index) 2023-03-23 00:00:00 35.1 kg/m2 [facility] Body Weight 2023-03-23 00:00:00 198 [lb_av] [facility] Height 2023-03-23 00:00:00 63 [in_i] [facility] BP Diastolic 2023-03-23 00:00:00 68 mm[Hg] [facility] BP Systolic 2023-03-23 00:00:00 152 mm[Hg] [facility] Procedures Procedure Date / Time Performed Performing Clinician Source POCT glucose meter docked device 2024-04-27 00:00:00 [facility] Complete Blood Count w/Diff and Platelet 2024-03-29 00:00:00 [facility] XR KNEE 1-2 VIEWS RIGHT 2024-03-28 16:12:00 Sa jerrod Jacques [facility] ARTHROPLASTY, KNEE, UNICOMPARTMENTAL, USING RAND SYSTEM 2024-03-28 13:30:00 Marla Gutierrez [facility] ARTHROPLASTY, KNEE, UNICOMPARTMENTAL, USING RAND SYSTEM 2024-03-28 12:53:00 Marla Gutierrez [facility] POC GLUCOSE UNSOLICITED RESULTS 2024-03-28 10:40:00 Marla Gutierrez [facility] Beta hCG Qualitative Urine 2024-03-28 00:00:00 [facility] POCT glucose meter docked device 2024-03-28 00:00:00 [facility] XR, knee, 1 or 2 view 2023-12-26 00:00:00 [facility] electrocardiogram, routine ECG, 12 leads min 2023-12-26 00:00:00 [facility] [place] ARTHROCENTESIS ASP/INJ MAJOR JOINT/BURSA W/OUT US 2023-09-18 15:30:00 Marla Gutierrez [facility] CT, abdomen + pelvis, w/wo contrast 2023-07-17 00:00:[address] [facility] [address], abdomen + pelvis, w/wo contrast 2023-05-24 00:00:00 [facility] Repair of Rectocele 2023-03-16 00:00:00 [facility] Cystoscopy 2022-05-25 00:00:00 [facility] [place] INJECT TENDON SHEATH/LIGAMENT 2022-05-09 16:00:00 Dennise Kirby [facility] Procedure on Hand 2022-04-06 00:00:00 [facility] Surgical Procedure on Left Eye Region 2013-02-06 00:00:00 [facility] Lumpectomy of Right Breast 1996-02-07 00:00:00 [facility] Partial Hysterectomy 1971-02-06 00:00:00 [facility] Breast Surgery [facility] Eye [facility] Hand Surgery [facility] Hysterectomy [facility] Tonsillectomy [facility] Incentive spirometry [facility] Oxygen Therapy - Patient Type: Adult; Device: Simple Face Mask; Rate in liters per minute: 10 Lpm; Follow Respiratory Pathway: Yes [facility] Oral Surgery Procedure [facility] Excision of Mass [facility] Plan of Care Planned Activity Planned Date Details Comments Source Encounters Start Date/Time End Date/Time Encounter Type Admission Type Attending Clinicians Care Facility Care Department Encounter ID Source 2024-02-27 10:00:00 Inpatient Raji WestonTO [facility] [id number] [facility] 2022-04-06 16:13:51 Outpatient [facility] [id number] [facility] 2022-03-28 08:38:03 Outpatient [facility] [id number] [facility] 2022-03-11 10:26:42 Outpatient [facility] [id number] [facility] 2022-02-22 11:24:45 Outpatient [facility] [id number] [facility] 2022-02-21 13:52:13 Outpatient [facility] [id number] [facility] 2022-02-14 11:13:39 Outpatient [facility] [id number] [facility] 2021-10-18 11:15:15 Outpatient [facility] [id number] [facility] 2021-10-14 13:11:09 Outpatient [facility] [id number] [facility] 2021-09-24 07:10:36 Outpatient [facility] [id number] [facility] 2021-09-23 15:25:11 Outpatient [facility] [id number] [facility] 2024-07-26 11:30:00 2024-07-26 12:32:20 Office Visit LUCINDA JACQUES [facility] 1.2.840.114 350.1.13.58 9.2.7.2.686 [id number] [facility] 2024-07-15 10:30:00 2024-07-15 10:30:00 Outpatient LUCINDA JACQUES [facility] [id number] [facility] 2024-06-10 13:15:00 2024-06-10 13:15:00 Outpatient MARLA MEDEROS [facility] [id number] [facility] 2024-05-20 13:00:00 2024-05-20 13:00:00 Outpatient [facility] [id number] [facility] 2024-05-20 13:00:00 2024-05-20 13:00:00 Outpatient [facility] [id number] [facility] 2024-05-13 13:30:00 2024-05-13 13:53:05 Outpatient [facility] [id number] [facility] 2024-05-13 13:30:00 2024-05-13 13:53:05 Clinical Support Philippe Albarran [place] [facility] 1.2.840.114 350.1.13.58 9.2.7.2.686 [id number] [facility] 2024-04-22 13:00:00 2024-04-22 13:19:57 Clinical Support Philippe Albarran [place] [facility] 1.2.840.114 350.1.13.58 9.2.7.2.686 [id number] [facility] 2024-04-08 13:00:00 2024-04-08 13:13:53 Clinical Support AlbarranPhilippe boyer [place] Physician s [facility] 1.2.840.114 350.1.13.58 9.2.7.2.686 [id number] [facility] 2024-04-05 10:00:00 2024-04-05 10:00:00 Outpatient [facility] [id number] [facility] 2024-03-28 09:33:00 2024-03-28 19:30:00 Outpatient Elective MARLA MEDEROS [facility] [id number] [facility] 2024-03-28 09:33:00 2024-03-28 19:30:00 Hospital Encounter Marla Mederos [facility] 1.2.840.114 350.1.13.70 8.2.7.2.686 [id number] [facility] 2024-03-22 12:14:39 2024-03-22 23:59:00 Outpatient [facility] [id number] [facility] 2024-03-21 00:00:00 2024-03-21 16:29:53 Natalie Michelle Tiffany [facility] 1..840.114 350.1.13.70 8.2.7.2.686 [id number] Tobisa Reed [facility] 2024-03-18 12:46:27 2024-03-18 13:03:11 Outpatient Elective [facility] [id number] [facility] 2024-03-01 11:45:00 2024-03-01 11:45:00 Outpatient MARLA MEDEROS [facility] [id number] [facility] 2024-02-26 12:45:00 2024-02-26 13:29:46 Office Visit Marla Mederos [place] Physician [facility] 1..840.114 350.1.13.58 9.2.7.2.686 [id number] [facility] 2024-02-20 00:00:00 2024-02-20 00:00:00 Charlee Guerra MD: [address], [facility] [address], [place] [phone] , Ph. [facility] - GC_GCBZW_[place]* [id number] [facility] 2023-12-26 00:00:00 2023-12-26 00:00:00 Raji Weston MD: [address] [place] [address] , Ph. [phone] [facility] [place] [facility] [place] [facility] FOG_[facility] [place] [id number] [facility] 2023-11-08 14:15:00 2023-11-08 14:15:00 Outpatient LUCINDA JACQUES [facility] [id number] [facility] 2023-10-17 00:00:00 2023-10-17 00:00:00 Charlee Guerra MD: [address], [facility], [place] [phone] , Ph. [facility] - GC_GCBZW_[place]* [id number] [facility] 2023-09-18 10:30:00 2023-09-18 11:05:37 Office Visit Marla Mederos [place] Physician s [facility] 1.2.840.114 350.1.13.58 9.2.7.2.686 [id number] [facility] 2023-09-18 10:30:00 2023-09-18 11:05:37 Outpatient [facility] [id number] [facility] 2023-08-29 00:00:00 2023-08-29 00:00:00 Charlee Guerra MD: [address], [address], [place] [phone] , Ph. [facility] - GC_GCBZW_[place]* [id number] [facility] 2023-07-17 00:00:00 2023-07-17 00:00:00 NEFTALI Jesus: [address], [address], [place] [address] , Ph. [facility] - GC_GCBZW_[place]* [id number] [facility] 2023-05-24 00:00:00 2023-05-24 00:00:00 NEFTALI Jesus: [address], [address], [place] [address] , Ph. [facility] - GC_GCBZW_[place]* [id number] [facility] 2023-05-03 00:00:00 2023-05-03 00:00:00 Charlee Guerra MD: [address], [address], [place] [address] , Ph. [facility] - GC_GCBZW_[place]* [id number] [facility] 2023-03-23 00:00:00 2023-03-23 00:00:00 NEFTALI Kimbrough: [address], [address], [place] [address] , Ph. [facility] - GC_GCBZW_[place]* [id number] [facility] 2023-03-09 00:00:00 2023-03-09 00:00:00 Radhika Murrieta PA: [address], [address], [place] [address] , Ph. [facility] - GC_GCBZW_[place]* [id number] [facility] 2022-05-09 11:30:00 2022-05-09 12:45:09 Outpatient [facility] [id number] [facility] 2022-05-09 11:00:00 2022-05-09 12:44:57 Office Visit DENNISE KIRBY [facility] 1 1.2.840.114 350.1.13.58 9.2.7.2.686 [id number] [facility] 2022-04-25 13:00:00 2022-04-25 13:00:00 Outpatient DANIEL ANGEL [facility] [id number] [facility] 2022-04-19 09:30:00 2022-04-19 09:52:24 Outpatient [facility] [id number] [facility] 2022-04-19 09:30:00 2022-04-19 09:52:05 Office Visit Angel Mello [facility] 1 1.2.840.114 350.1.13.58 9.2.7.2.686 [id number] [facility] 2022-04-07 13:15:00 2022-04-07 14:13:33 Outpatient [facility] [id number] [facility] 2022-04-07 13:30:00 2022-04-07 14:11:55 Office Visit Dennise Kirby [facility] 1 1.2.840.114 350.1.13.58 9.2.7.2.686 [id number] [facility] 2022-03-25 07:09:00 2022-03-25 23:59:[address] [facility] 2022-03-25 11:00:00 2022-03-25 11:00:00 Outpatient ANGEL MELLO [facility] [id number] [facility] 2022-03-14 13:30:00 2022-03-14 13:59:11 Office Visit Angel Mello [facility] 1 1.2.840.114 350.1.13.58 9.2.7.2.686 [id number] [facility] 2021-10-18 12:00:00 2021-10-18 13:41:56 Office Visit ANGEL MELLO [facility] 1 1.2.840.114 350.1.13.58 9.2.7.2.686 [id number] [facility] 2021-10-18 00:00:00 2021-10-18 13:41:47 Outpatient [facility] [id number] [facility] 2021-10-14 12:30:00 2021-10-14 12:30:00 Outpatient ANGEL MELLO [facility] [id number] [facility] 2019-07-20 00:00:00 2019-07-20 00:00:00 Telephone [facility] 1.2.840.114 350.1.13.10 4.2.7.2.686 [id number] 2019-07-20 00:00:00 2019-07-20 00:00:00 Telephone [facility] 1.2.840.114 350.1.13.10 4.2.7.2.686 [id number] [facility] 2019-07-18 08:04:26 2019-07-18 08:19:26 Laboratory Only Only, Adc Test [facility] 1.2.840.114 350.1.13.10 4.2.7.2.686 [id number] 2019-07-18 08:04:26 2019-07-18 08:19:26 Laboratory Only Only, Adc Test Jt Hamilton [facility] 1.2.840.114 350.1.13.10 4.2.7.2.686 [id number] [facility] 2019-07-18 08:00:00 2019-07-18 08:00:00 Outpatient JT LAGOS [facility] [id number] [facility] Results Test Description Test Time Test Comments Results Result Co mments Source [facility] Epicurinalysis, [id number] 12:06:00* Test Item Value Reference Range Interpretation Comme nts Leukocytes (test code = Leukocytes) Negative Nitrite (test code = Nitrite) negative Urobilinogen (test code = Urobilinogen) 0.2 Protein (test code = Protein) Negative pH (test code = pH) 6.0 Blood (test code = Blood) Negative Specific [place] (test code = Specific [place]) 1.010 Ketone (test code = Ketone) Negative Bilirubin (test code = Bilirubin) Negative Glucose (test code = Glucose) Negative Appearance (test code = Appearance) Clear Color (test code = Color) Yellow [facility]/Asp: R [id number] 15:30:00Marla Gutierrez MD ? ? 09/24/2023 11:12 AML Inj/Asp: R knee on 09/18/2023 10:30 AMIndications: painDetails: 22 G needle, anterolateral approachMedications: 40 mg methylPREDNISolone acetate 40MG/MLOutcome: tolerated well, no immediate complicationsProcedure, treatment alternatives, risks and benefits explained, specific risks discussed. Consent was given by the patient. Patient was prepped and draped in the usual sterile fashion.NM Healthmeasurement of post-voiding residual urine and/or bladder capacity (PROC)2023-05-24 14:28:32* Test Item Value Reference Range Interpretation Comme nts (PVR) (test code = (PVR)) 22 [facility] - [id number] 10:39:00* Test Item Value Reference Range Interpretation Comme nts Leukocytes (test code = Leukocytes) Negative Nitrite (test code = Nitrite) negative Urobilinogen (test code = Urobilinogen) Normal Protein (test code = Protein) Negative pH (test code = pH) 6.0 Blood (test code = Blood) Negative Specific [place] (test code = Specific [place]) 1.015 Ketone (test code = Ketone) Negative Bilirubin (test code = Bilirubin) Negative Glucose (test code = Glucose) Negative Appearance (test code = Appearance) Slightly Cloudy Color (test code = Color) Pale Yellow [facility]-voiding residual urine and/or bladder capacity (PROC)2023-05-03 11:57:00* Test Item Value Reference Range Interpretation Comme nts (PVR) (test code = (PVR)) 13 [facility] History and Physical Notes Date/Time Note Provider Source 2024-03-25 14:21:31 [facility] SURGERY JOINTS FUP OFFICE NOTE Chief Complaint: Pain of the Right Knee HPI: Zofia Castillo returns for follow up today regarding complaint of right knee pain. Zofia Castillo indicates that since the last visit symptoms have gotten worse. Current pain level on a scale from 0-10 is 8. Specifically, there are continued complaints of stiffness, numbness, pain with sports/activities, night pain, aching legs, and daytime pain with rest. Since the last appointment, medications being taken have been nsaid/tramadol for pain. Medications have not resolved the symptoms and symptoms are still present. 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 Family History No family history on file. Social History Social History Tobacco Use Smoking status: Never Smokeless tobacco: Never Substance Use Topics Alcohol use: Never Drug use: Never Current Medications No current outpatient medications on file. No current facility-administered medications for this visit. Allergies Allergies Allergen Reactions Aspirin Review of Systems Review of Systems Constitutional: Negative. HENT: Negative. Eyes: Negative. Respiratory: Negative. Cardiovascular: Negative. Gastrointestinal: Negative. Endocrine: Negative. Genitourinary: Negative. Musculoskeletal: Positive for arthralgias, gait problem and joint swelling. Skin: Negative. Allergic/Immunologic: Negative. Hematological: Negative. Psychiatric/Behavioral: Negative. All other systems reviewed and are negative. Objective: Visit Vitals Ht 1.6 m (5' 3") Wt 90.7 kg (200 lb) BMI 35.43 kg/m? Smoking Status Never BSA 2.01 m? PHYSICAL EXAM: Right Knee Previous incisions: no Appearance: Normal except as noted: genu VARUS Standing varus/valgus varus <2 deg valgus Tenderness: None except as noted: ++++ medial joint line NO pain along lateral joint line Palpatory findings pain along joint line , MEDIAL PAIN ALONG JOINT LINE TO PALPATION Painful and palpable crepitus NO Flexion contracture 3 DEG Range of motion: 3-121? Extensor lag on straight leg raise: < 10 DEG TA intact, GS intact and EHL intact. Motor: Normal Strength. Joint Registry: Knee Pre-op Visit Diagnosis: Osteoarthritis Unilateral or bilateral knee pathology? Unilateral Side if unilateral: right Pre-op Alignment: 9 Varus deg Pre-op Instability (AP): stable <5mm Pre-op Instability (ML): stable <5mm Imaging: Xrays knee - AP, lateral and sunrise views of the right/ knee were ordered, obtained and interpreted from an orthopedic standpoint. SEVERE VARUS Radiographs of the involved knee including weight bearing views reveal advanced end stage arthritic changes to the knee. These changes represent 100% loss of joint space in the medial compartment and less than 5% in the lateral and patellofemoral compartment. There is subchondral sclerosis and periarticular osteophyte formation with loss of joint space. No destructive or bony lesions were noted. Outside Imaging: Procedures Assessment and Plan: ICD-10-CM 1. Primary osteoarthritis of right knee M17.11 No orders of the defined types were placed in this encounter. Dx. Right/ knee severe bone on bone /medial compartment osteoarthritis Failure of previous conservative measures, including viscosupplementation and corticosteroid injections as well as oral medication and exercise regimen incudibng supervised physical therapy for about 6 months. The patient feels that symptoms are worsening and her daily activities including work and hobbies are being affected by the knee pain. The patietn wishes to consider further management options and my recommendations is to consider rt partial versus total knee replacement. Indications and possible complications of the procedure were discussed in detail. All questions were answered today. Schedule outpatient /right partial vs total Knee/ replacement Outpatient procedure Preop cardiac risk assessment in preop clinic DVT proph will be with asa bid x 14 days vs Lovenox pending IM evaluation pain control periop Celebrex, norco prn I answered all of their questions today regarding her surgical decision Also discussed with them the importance of the preoperative pathway including our total joint replacement class to answer any further questions I am obviously available to them through the portal and phone for any emergency post op Upon discharge, will follow up with us in no less than 10 days PROPOSED PROCEDURE: right knee medial UKR vs total knee replacement Surgery risks, benefits, and alternatives were discussed with the patient regarding operative intervention. Risks include but are not limited to pain, bleeding, scarring, infection, damage to nerves, arteries, veins, failure of procedure, possible loosening, migration, or hardware failure, possible painful or prominent hardware, joint stiffness, need for further procedures, nonunion, malunion, dislocation, loss of limb, heart attack, stroke and . Patient voiced understanding and wishes to proceed with operative interventions. The patients current BMI is Body mass index is 35.43 kg/m?. . She was oriented about the importance of weight loss prior to surgery, IF BMI is >35 prior to surgery my recommendation is that the patient considers nutritional consultation and further weight loss prior to surgical management. These recommendations were discussed with the patient as increased BMI particularly >40 increases the risk of infection. General risks of surgery The risks and benefits of surgery were discussed with the patient including but not limited to: infection, anesthesia complications, bleeding, deep venous clotting and pulmonary embolus, stiffness, swelling, hardware failure or symptoms of the utilized hardware, incomplete or worsening of symptoms, and the possible need for further surgery in the future. The procedure has been explained and all presented questions have been answered at the present time. The patient may call or come with any other concerns or questions. The patient also understands the post-operative rehabilitation process and the need for their cooperation and participation, and that their results may be compromised by their lack of compliance. The patient would like to proceed. The patient is encouraged to seek additional opinions if desired. IF smoker, I discussed with patient about the importance of quitting smoking to decrease risk of infection postoperatively and promote good wound healing. We will push date back for surgery as needed and will not perform surgery if preop labs indicate smoking. The choice of implant to be used during the proposed surgery was discussed with the patient. We had a lengthy discussion with the patient regarding the potential options for treatment. Patient has isolated changes to the medial compartment of her knee. The patient has undergone extensive conservative measures including routine exercise and usp NSAIDs and her symptoms persist. The patient's symptoms have progressively worsened to the point where they now limit the patient's daily activities and quality of life. It is recommended that the patient undergo a right/ medial unicompartmental knee replacement versus a total knee replacement. The potential risks and benefits were discussed in detail. Based on the patient's severe limitations and progressively increasing pain, as well as failures of desired improvement from other non-operative or operative treatments, I recommended the patient consider partial knee arthroplasty. We reviewed the surgery in detail and the risks including infection, bleeding, nerve damage, fracture, incomplete relief of pain, deep venous thrombosis, mechanical failure of the device, as well as stiffness and instability. We also discussed the potential longevity of the implant, and possible need for revision, or conversion to total knee in the future. We also reviewed the risks of anesthesia. The patient understands that should infection occur, multiple operative procedures may be necessary including the use of long-term antibiotics through a central line. We also discussed the risks of pulmonary embolism secondary to DVT formation and the possible need for short-term anticoagulation with aspirin or other medications postoperatively. The patient was shown partial knee booklets, diagrams and/or models and all of ~his/her~ questions have been answered at the present time. The patient may call or come in if she has any other concerns or questions. The patient also understands the post-operative rehabilitation process and the need for their cooperation, participation, and that their results may be compromised by their lack of compliance. The patient would like to proceed. she is encouraged to seek additional opinions if she desires. While no guarantees can be made, total knee replacement has a very high success rate in terms of relieving a patient's knee pain and returning them to a more active, independent lifestyle for 10-15 years or more. All surgery carries some risk; for partial knee replacement, the complication rate is low but may include: (very rare), infection, bleeding requiring transfusion, blood clots in legs traveling to lungs, nerve and/or blood vessel damage, bone fracture, persistent knee pain and/or stiffness, and repeat surgery(ies). The risk of a major complication is about 1-2 per 1000 cases. Total knee replacement should only be done if conservative treatment has failed. The revision rate into total knee replacements is about 1-2% per year; in other words, 85-90% of partial knee replacements may last 10 years; 75-85% last 20 years; and so on, assuming no injury to the knee. Marla Gutierrez MD Cosigned by Marla Gutierrez MD at 03/25/2024 6:07 PM CUSTOMER SERVICE ATTENDANT OMER SERVICE ATTENDANT [facility] Procedure Notes Date/Time Note Provider Source 2024-03-28 12:53:00 Orthopedic Surgery Operative Report Patient Name: Zofia Castillo Date of Procedure: 03/28/2024 : 1945 PREOPERATIVE DIAGNOSIS: Right knee medial compartment osteoarthritis POSTOPERATIVE DIAGNOSIS: Right knee medial compartment osteoarthritis PROCEDURE PERFORMED: Right knee medial unicompartmental knee arthroplasty SURGEON: Marla Gutierrez MD ASSISTANTS: Linux Server Administrator - Primary: Carlito Lau RN Physician Air Defence Officer: SAMUEL Coulter Scrub Person - Relief: Kevin Bennett CST Scrub Person - Primary: Adele Chauhan CST Press Supervisor: MIREILLE Urias ANESTHESIA: Spinal and monitored care. FLUIDS ADMINSTERED: Please refer to anesthesia records ESTIMATED BLOOD LOSS: 20 mL. BLOOD PRODUCTS ADMINISTERED: None TOURNIQUET TIME: As recorded in OR nursing documentation IMPLANTS: Implant Name Type Inv. Item Serial No. Desulfurizer Hand Lot No. LRB No. Used Action CEMENT BN SMPX FD STER LTX FR - SN/A - [id number] Orthopedic Implant CEMENT BN SMPX FD STER LTX FR N/A [employer] RECON [id number] Right 1 Implanted COMPONENT FEM MCK RM LL SZ 4 - [id number] Joint Knee COMPONENT FEM MCK RM LL SZ 4 [employer] RAND [id number] Right 1 Implanted BASEPLATE TIB 3 KN RT MED LT - [id number] Joint Knee BASEPLATE TIB 3 KN RT MED LT [employer] [facility] [id number] Right 1 Implanted INSERT TIB 3 8MM KN ONLAY MCK - [id number] Joint Knee INSERT TIB 3 8MM KN ONLAY MCK [employer] RAND [id number] Right 1 Implanted DRAINS: None. SPECIMENS: None. FINDINGS: Severe bone on bone arthritis of the medial compartment with degenerative wear of the medial meniscus. The patellofemoral and lateral compartments maintained acceptable cartilaginous coverage with minimal wear pattern. INDICATIONS FOR THE PROCEDURE: The patient has a long history of right medial knee pain that interferes with activities of daily living and has failed conservative treatment. Please refer to my history and physical for complete details including risks, benefits, and alternatives discussion. All questions were answered to their satisfaction. DESCRIPTION OF OPERATION: After adequate anesthesia was induced, the right/ lower extremity was prepped and draped in the usual sterile fashion. A timeout per protocol was preformed and the patient, surgical site, and consent were reviewed and after all were in agreement the procedure began. The limb was exsanguinated and a proximal thigh tourniquet was inflated. A standard anterior incision was made with a 10 blade scalpel. Dissection was carried down sharply through the skin and subcutaneous tissues to the level of the extensor mechanism. A medial parapatellar approach to the knee was then carried out. Observation of the patellofemoral and lateral compartments at this time demonstrated no significant or advanced degenerative disease. A partial medial release was carried out. Pins were introduced to the medial femoral condyle and tibial crest to allow mounting of the robotic arrays. The hip was taken through a range of motion to obtain the anatomic axis. Cartilage surface registration was performed. Virtual planning of the implant positions was modified to facilitate tracking and balanced gaps. Once satisfied with our implant plan the robotic cutting arm was utilized to perform the tibial and posterior femur cuts. The alondra was then mounted to finish femoral preparation as well as tibial keel and post holes. All bony debris was removed from the medial compartment. The medial meniscus was resected using electrocautery. A tibial and femoral trial were put in place with a trial polyethylene insert as well. The knee was put through range of motion and had excellent flexion and extension gaps at full extension, 30, 60, and 90 degrees of flexion. The trial components were removed. A capsular and soft tissue block was used for postoperative anesthesia. The cancellous surfaces of the bones were meticulously jet lavaged with antibiotic-containing saline and dried. Methyl methacrylate bone cement was then injected into cancellous bone and pressurized. The prosthetic components were inserted, excess cement was removed, the knee was placed in extension, and the cement was allowed to harden. The wound was irrigated with antibiotic-containing saline and checked for loose fragments and debris. Figure-of-8 #2 Vicryl was used to oppose the joint capsule and medial parapatellar arthrotomy and extensor mechanism. A running Quill suture was then used to overrun the extensor mechanism medial parapatellar arthrotomy for a watertight closure. Interrupted 2-0 Vicryl suture was then used to close the subcutaneous tissue. A running 3-0 Monocryl subcutaneous suture and Dermabond Prineo were then used to close the skin edges. A sterile compressive dressing was applied, the patient was awakened, and sent to the recovery room in stable condition. There were no complications. The sponge and needle counts were given as correct. POST-OPERATIVE PLAN: 1) WBAT to operative extremity 2) Dressings: Keep clean and dry 3) PT: Progress activity and ROM as tolerated, begin therapy POD #0 4) DVT prophylaxis as ordered; mobilize, SCDs 5) DC home when pain controlled 6) Follow up at 1 week post-operatively in clinic as scheduled I was present and performed all critical portions of the case. Implants Type Name Action Serial No. Orthopedic Implant CEMENT BN SMPX FD STER LTX FR - SN/A - [id number] Implanted N/A Joint Knee COMPONENT FEM MCK RM LL SZ 4 - [id number] Implanted Joint Knee BASEPLATE TIB 3 KN RT MED LT - [id number] Implanted Joint Knee INSERT TIB 3 8MM KN ONLAY MCK - [id number] Implanted [facility] 2024-03-28 12:53:00 Orthopedic surgery Immediate post procedure note Zofia Harris Anna [id number] 03/28/24 Diagnosis: Right knee severe DJD, varus medial compartment Problem List Items Addressed This Visit None . Procedures: Procedure(s) with comments: RIGHT MAKOPLASTY PARTIAL KNEE REPLACEMENT - RAND [employer]OLAND ROBOT VENDOR NOTIFIED 03/20 Surgeons: * Marla Gutierrez - Primary Press Supervisor: Linux Server Administrator - Primary: Carlito Lau RN Physician Air Defence Officer: Lucinda Jacques PA Scrub Person - Relief: Kevin Bennett, CUSTOMER SERVICE ATTENDANT Scrub Person - Primary: Adele Chauhan, [facility] Press Supervisor: MIREILLE Urias Anesthesia: Anesthesia Plan Estimated Blood Loss: 25ml Drains: none Wound Closure Type: Primary Closure (any portion of the skin closed or approximated) Wound Class: clean/ Surgical Status: Elective/ Anticipating return to OR: Anticipated Return to OR: No Is this patient on therapeutic antibiotics? Patient on theraputic antibiotics?: No Document Complications/Transfusions/Implants? None Procedure for cancer: Procedure for Cancer?: No Dictation number: N/A Findings: medial compartment DJD, no lateral of PF compartment DJD noted Disposition: PACU Condition: stable [facility] 2024-03-21 16:29:00 Virtual Joint Replacement Class Patient attended a virtual Joint Class with the Orthopedic Nurse Navigator. Patient was educated on the following: Patient's life coach and role in recovery. Pre-admit testing and medical clearances. Preparing for surgery (living space, equipment, medications, pre-surgical drink, CHG soap). Exercises (pre-op and post-op). Day of surgery expectations and timeline. DVT/blood clot prevention (anticoagulant, ambulation, ankle pumps). Infection prevention (CHG soap, hand/dental hygiene, pets, wound healing). Fall prevention and hip precautions. Management of pain and swelling (medications, cold therapy, elevation). Nutrition (protein, water and fiber). Post discharge signs and symptoms (expected vs unexpected and when to call MD). [facility] Notes Vital Signs:Home Living:Prior Level of Function:ObjectivePrecautions:Cognition:General Assessments:Postural Control Postural ControlBalance- SittingBalance- StandingFunctional Assessments:Gait Date/Time Note Provider Source 2024-03-28 20:05:23 Uche Hoyt, PT - 03/28/2024 5:16 PM CUSTOMER SERVICE ATTENDANT Evaluation and Treatment Note Patient Name: Zofia Castillo Today's Date: 03/28/2024 Preferred Language: Mohawk Assessment & Plan Pt is a 78 y/o F s/p RIGHT MAKOPLASTY PARTIAL KNEE REPLACEMENT (Right: Knee); pt is RLE WBAT per MD orders; pt requires SBA for bed mobility and gait, able to ambulate into yen with RW, pt demo slow, steady steps, decreased stride length bilaterally, no LOB exhibited; no signs of distress exhibited throughout. Pt assisted to bathroom, educated on safe toilet transfers, able to perform hygiene care SBA. Pt educated on slow steps/ turns/ pivots; verbalized understanding. Pt and family member present at bedside and educated on fall prevention, gait belt use, RW use, no rollator use, having family assist with all transfers/ gait at all times, bed mobility/ positioning, ther-ex as tolerated, hand-out provided, return demo ther-ex, safe transfers/ toilet transfers; verbalized understanding. 29/08 supervision for all transfers/ gait at all times. Pt demo safe functional mobility and gait, no further acute skilled PT needed. RN approved PT session, pt presented in bedside recliner chair, willing to participate with encouragement, no signs of distress exhibited throughout; ирина Frausto assisting throughout. Family member present at bedside and educated on gait belt use, fall prevention, safe transfers, assisting pt with all transfers/ gait at all times. Pt educated on proper sequence of movement. Pt sat demo good sitting balance. No LOB exhibited. Pt tolerated gross MMT/ ROM assessment. Pt required max. verbal and tactile cues for proper hand placement on RW. Pt stood with RW in front, requiring SBA. Pt provided with tactile facilitation to maintain upright trunk control and posture. Pt able to ambulate into yen with RW, pt demo slow, steady steps, decreased stride length bilaterally, no LOB exhibited. Pt educated on staying within frame of RW, ensuring upright posture, and cuing on maintaining equal step lengths. Pt educated on slow steps/ turns/ pivots; verbalized understanding. Pt assisted to bathroom, educated on safe toilet transfers, able to perform hygiene care SBA. Pt able to ambulate back to room with RW, no LOB exhibited; no signs of distress exhibited throughout. Pt educated on fall prevention, RW use, no rollator use, having family assist with all transfers/ gait at all times, bed mobility/ positioning, ther-ex as tolerated, hand-out provided, return demo ther-ex, safe transfers; verbalized understanding. Pt transitioned back to room, repositioned in bedside recliner chair, BLE elevated, CB/phone within reach, all needs met, all lines remain attached, no reports of pain nor signs of distress exhibited. RN informed of pt status/ needs. Pt educated on PT plan of care, fall prevention, bed mobility/ positioning, RW use, and safe transfers. Assessment: Prognosis: Good Evaluation/Treatment Tolerance: Patient tolerated treatment well Medical Staff Made Aware: Yes Strengths: Support of extended family/friends Plan: Treatment Plan/Goals Established with Patient/Caregiver: Yes PT Plan: No skilled PT Equipment Recommended: Walker- standard, Toilet seat-elevated, Grab bars PT Recommended Transfer Status: Assistive equipment (Comment) PT- Okay to Discharge from Therapy: Yes Subjective Current Problem: Decreased functional mobility Patient Vitals for the past 24 hrs: BP MAP (mmHg) Pulse Resp SpO2 03/28/24 1915 -- -- 93 -- -- 03/28/24 1900 (!) 145/57 81 94 17 96 % 03/28/24 1845 -- -- 81 15 95 % 03/28/24 1830 (!) 149/49 75 93 12 95 % 03/28/24 1815 -- -- 83 16 96 % 03/28/24 1800 (!) 156/54 83 92 12 92 % 03/28/24 1745 138/66 82 100 15 95 % 03/28/24 1715 -- -- (!) 101 13 94 % 03/28/24 1600 -- -- 98 -- -- 03/28/24 1552 133/71 92 -- -- -- 03/28/24 1545 (!) 126/53 74 (!) 101 16 94 % 03/28/24 1530 (!) 145/56 82 (!) 103 12 94 % 03/28/24 1515 (!) 155/58 82 (!) 109 13 100 % 03/28/24 1510 155/63 87 (!) 112 13 100 % 03/28/24 1245 (!) 132/51 72 83 13 95 % 03/28/24 1230 128/63 83 73 14 96 % 03/28/24 1215 (!) 140/124 (!) 129 84 17 96 % 03/28/24 1200 143/62 79 86 14 96 % 03/28/24 1145 131/71 88 82 14 97 % 03/28/24 1130 149/67 86 81 13 96 % 03/28/24 1115 (!) 165/75 96 82 (!) 9 98 % 03/28/24 1110 (!) 162/72 99 73 16 97 % 03/28/24 1035 148/65 89 82 15 97 % Type of Home: House Lives With: Family, Spouse Home Layout: One level Level of [place]: Household ambulation Receives Help From: Family ADL Assistance: Independent Homemaking Assistance: Independent General Visit Information: Family/Caregiver Present: Yes LE Weight Bearing Status: WBAT per MD orders. Medical Precautions: Fall; standard Overall Cognitive Status: Within Functional Limits Behavior/Cognition: Alert, Cooperative Orientation Level: Oriented X4 Activity Tolerance Activity Tolerance Endurance: Endurance does not limit participation in activity Sitting Balance: Moves/returns truncal midpoint more than 2 inches in all planes Activity Tolerance Comments: no LOB exhibited. Postural Control: Within Functional Limits Head Control: WFL Trunk Control: WFL Static Sitting-Balance Support: Left upper extremity supported, Right upper extremity supported, Feet supported Level of Assistance: Independent Static Standing-Balance Support: Left upper extremity supported, Right upper extremity supported Static Standing-Level of Assistance: Independent Static Standing-Comment/Number of Minutes: RW SBA ADL ADL ADL Comments: Independent Bed Mobility Bed Mobility 1: Technique 1: Via walking, Stand step, Stand pivot Level of Assistance 1: Independent Trials/Comments 1: RW SBA; no LOB exhibited. Transfer To/From: Recliner, Lvv-ca-Gerhi/Hazsw-im-Dup Gait Training Time Entry: 9 Distance (enter in feet): 110ft Gait Training Activity 1: Indoor surface Assistive Devices And Adaptive Equipments: Walker, front-wheeled Level of Assistance 1: Independent Gait Training Activity 1 Comment: RW SBA; no LOB exhibited; no signs of distress exhibited throughout. Right Lower Extremity RLE Assessment RLE Assessment: Within Functional Limits LLE Assessment: Within Functional Limits RUE Assessment: Within Functional Limits LUE Assessment: Within Functional Limits Endurance: Endurance does not limit participation in activity Sitting Balance: Moves/returns truncal midpoint more than 2 inches in all planes Activity Tolerance Comments: no LOB exhibited. Overall Cognitive Status: Within Functional Limits Behavior/Cognition: Alert, Cooperative Orientation Level: Oriented X4 Therapeutic exercise: Technique 1: Via walking, Stand step, Stand pivot Level of Assistance 1: Independent Trials/Comments 1: RW SBA; no LOB exhibited. Transfer To/From: Recliner, Vck-dy-Jgoex/Qebff-be-Jer Gait training: Gait Training Time Entry: 9 Distance (enter in feet): 110ft Gait Training Activity 1: Indoor surface Assistive Devices And Adaptive Equipments: Walker, front-wheeled Level of Assistance 1: Independent Gait Training Activity 1 Comment: RW SBA; no LOB exhibited; no signs of distress exhibited throughout. Turning in bed without bedrails: None Lying on back to sitting on edge of flat bed: None Bed to chair: None Standing up from chair: None Walk in room: None Climbing 3-5 stairs: None Mobility Inpatient Raw Score: 24 -HLM Goal: 7 Mobility: Highest Level of Mobility Performed (-HLM) Education Documentation Precautions, taught by Uche Hoyt PT at 03/28/2024 7:26 PM. Learner: Family, Patient Readiness: Eager Method: Explanation Response: Verbalizes Understanding Learner: Family, Patient Readiness: Eager Method: Explanation Response: Verbalizes Understanding Learner: Family, Patient Readiness: Eager Method: Explanation Response: Verbalizes Understanding Learner: Family, Patient Readiness: Eager Method: Explanation Response: Verbalizes Understanding Learner: Family, Patient Readiness: Eager Method: Explanation Response: Verbalizes Understanding Learner: Family, Patient Readiness: Eager Method: Explanation Response: Verbalizes Understanding Learner: Family, Patient Readiness: Eager Method: Explanation Response: Verbalizes Understanding PM. Learner: Family, Patient Readiness: Eager Method: Explanation Response: Verbalizes Understanding No comments found. discharge from acute care prior to discharge from the therapy service and will serve as the discharge summary. OMER SERVICE ATTENDANT [facility] Derek Scheduled Procedures Name Priority Associated Diagnoses Date/Ti me ARTHROPLASTY, KNEE, UNICOMPARTMENTAL, USING RAND SYSTEM Unilateral primary osteoarthritis, right knee 03/28/2024 12:53 PM CUSTOMER SERVICE ATTENDANT Health Maintenance Due Date Last Done Comments Bone Density Scan 1945 Lipid Panel 1945 Medicare Annual Wellness (AWV) 1945 Annual Physical 12/16/1948 Pneumococcal Vaccine: 65+ Years (1 of 2 - PCV) 1951 DTaP/Tdap/Td Vaccines (1 - Tdap) 12/16/1963 Respiratory Syncytial Virus (RSV) or >=60 (1 - 1-dose 75+ series) 12/16/2019 Zoster Vaccines (2 of 2) 05/08/2024 03/13/2024 Influenza Vaccine Completed 03/13/2024, 11/01/2022, 11/23/2021 HIB Vaccines Aged Out No longer eligi ble based on patient's age to complete this topic HPV Vaccines Aged Out No longer eligi ble based on patient's age to complete this topic Hepatitis A Vaccines Aged Out No long er eligible based on patient's age to complete this topic Hepatitis B Vaccines Aged Out No long er eligible based on patient's age to complete this topic IPV Vaccines Aged Out No longer eligi ble based on patient's age to complete this topic Meningococcal Vaccine Aged Out No attila jackelyn eligible based on patient's age to complete this topic Rotavirus Vaccines Aged Out No longer eligible based on patient's age to complete this topic [id number] 20:05:23 [id number] 20:05:23* Auth/Cert (Routine) Specialty Diagnoses / Procedures Referred By Leland t Referred To Contact Diagnoses Unilateral primary osteoarthritis, right knee RIGHT KNEE OSTEOARTHRITIS Procedures NH ARTHRP KNEE CONDYLE&PLATEAU MEDIAL/LAT CMPRT NH ARTHRP KNE CONDYLE&PLATU MEDIAL&LAT COMPARTMENTS RIGHT MAKOPLASTY PARTIAL KNEE REPLACEMENT VERSUS RIGHT MAKOPLASTY TOTAL KNEE REPLACEMENT RIGHT MAKOPLASTY PARTIAL KNEE REPLACEMENT VERSUS RIGHT MAKOPLASTY TOTAL [place] [address] [place] [address] Phone: tel: fax: [facility] ([facility] [place]) [address] [place] [address] Phone: tel: Referral ID Status Reason Start Date Expiration Date Visits Re quested Visits Authorized [id number] 02 06 [id number]21 Images from the original note were not included. [id number] Using an Incentive Spirometer An incentive spirometer is a device that helps you do deep breathing exercises after surgery. Or it helps lower the risk for breathing problems if you have a lung disease or condition. These exercises expand your lungs, aid in circulation, and may help prevent pneumonia. Deep breathing exercises also help you breathe better and improve the function of your lungs by: ? Keeping your lungs clear ? Strengthening your breathing muscles ? Helping prevent respiratory complications or problems The incentive spirometer gives you a way to take an active part in your recovery. A nurse or respiratory therapist will teach you breathing exercises. To do these exercises, you will breathe in through your mouth and not your nose. The incentive spirometer only works correctly if you breathe in through your mouth. Deep breathing expands the lungs, aids circulation, and helps prevent pneumonia. Your healthcare provider or their staff will tell you how to use the device, your targeted volume(s), and provide other helpful tips to prevent complications (such as pain, dizziness, feeling lightheaded) when blowing in the incentive spirometer. Steps to clear lungs Step 1. Exhale normally. Then, inhale normally. ? Relax and breathe out. Step 2. Place your lips tightly around the mouthpiece. ? Make sure the device is upright and not tilted. ? Sit up and breathe out (exhale) fully ? Tightly seal your lips around the mouthpiece Step 3. Inhale as much air as you can through the mouthpiece. Don't breathe through your nose. ? Breathe in (inhale) slowly and deeply. ? Hold your breath long enough to keep the balls, piston, or disk raised for at least 3 to 5seconds, or as instructed by your healthcare provider. ? Exhale slowly to allow the balls, piston, or disk to fall before repeating again. Note: Some spirometers have an indicator to let you know that you are breathing in too fast. If the indicator goes off, breathe in more slowly. Step 4. Repeat the exercise regularly. ? Do sets of 10 exercises every hour while you're awake, or as instructed by your healthcare provider. Don't do more than 30 breaths in each set. ? If you were taught deep breathing and coughing exercises, do them regularly as instructed by your provider, nurse, or respiratory therapist. Follow-up care Make a follow-up appointment, or as directed by your healthcare provider. Also follow up with your provider as advised if your symptoms don't improve or continue to get worse. When to call your healthcare provider Call your healthcare provider right away if you have any of these: ? Fever 100.4? (38?C) or higher, or as advised by your provider ? Brownish, bloody, or smelly sputum (phlegm that you cough up) Call 911 Call 911 if any of these occur: ? Shortness of breath that doesn't get better after taking your medicine ? Cool, moist, pale, or blue skin ? Trouble breathing or swallowing, wheezing ? Fainting or loss of consciousness ? Feeling of dizziness or weakness, or a sudden drop in blood pressure ? Feeling very ill ? Lightheadedness ? Chest pain or rapid heart rate Last Reviewed Date: 2021 00:00:00 ? [id number] [employer]. All rights reserved. This information is not intended as a substitute for professional medical care. Always follow your healthcare professional's instructions. [facility] General Surgery Registered NurseMemoribelen [id number] 16:25:20 Images from the original note were not included. [id number] Using an Incentive Spirometer An incentive spirometer is a device that helps you do deep breathing exercises after surgery. Or it helps lower the risk for breathing problems if you have a lung disease or condition. These exercises expand your lungs, aid in circulation, and may help prevent pneumonia. Deep breathing exercises also help you breathe better and improve the function of your lungs by: ? Keeping your lungs clear ? Strengthening your breathing muscles ? Helping prevent respiratory complications or problems The incentive spirometer gives you a way to take an active part in your recovery. A nurse or respiratory therapist will teach you breathing exercises. To do these exercises, you will breathe in through your mouth and not your nose. The incentive spirometer only works correctly if you breathe in through your mouth. Deep breathing expands the lungs, aids circulation, and helps prevent pneumonia. Your healthcare provider or their staff will tell you how to use the device, your targeted volume(s), and provide other helpful tips to prevent complications (such as pain, dizziness, feeling lightheaded) when blowing in the incentive spirometer. Steps to clear lungs Step 1. Exhale normally. Then, inhale normally. ? Relax and breathe out. Step 2. Place your lips tightly around the mouthpiece. ? Make sure the device is upright and not tilted. ? Sit up and breathe out (exhale) fully ? Tightly seal your lips around the mouthpiece Step 3. Inhale as much air as you can through the mouthpiece. Don't breathe through your nose. ? Breathe in (inhale) slowly and deeply. ? Hold your breath long enough to keep the balls, piston, or disk raised for at least 3 to 5seconds, or as instructed by your healthcare provider. ? Exhale slowly to allow the balls, piston, or disk to fall before repeating again. Note: Some spirometers have an indicator to let you know that you are breathing in too fast. If the indicator goes off, breathe in more slowly. Step 4. Repeat the exercise regularly. ? Do sets of 10 exercises every hour while you're awake, or as instructed by your healthcare provider. Don't do more than 30 breaths in each set. ? If you were taught deep breathing and coughing exercises, do them regularly as instructed by your provider, nurse, or respiratory therapist. Follow-up care Make a follow-up appointment, or as directed by your healthcare provider. Also follow up with your provider as advised if your symptoms don't improve or continue to get worse. When to call your healthcare provider Call your healthcare provider right away if you have any of these: ? Fever 100.4? (38?C) or higher, or as advised by your provider ? Brownish, bloody, or smelly sputum (phlegm that you cough up) Call 911 Call 911 if any of these occur: ? Shortness of breath that doesn't get better after taking your medicine ? Cool, moist, pale, or blue skin ? Trouble breathing or swallowing, wheezing ? Fainting or loss of consciousness ? Feeling of dizziness or weakness, or a sudden drop in blood pressure ? Feeling very ill ? Lightheadedness ? Chest pain or rapid heart rate Last Reviewed Date: 2021 00:00:00 ? [id number] [employer]. All rights reserved. This information is not intended as a substitute for professional medical care. Always follow your healthcare professional's instructions. [facility] 16[facility]25:16 Images from the original note were not included. 26 Preventing Surgical Site Infection After Surgery Wash your hands Wash your hands after using the bathroom, before and after eating, after coughing or sneezing, after using a tissue, after touching or changing a dressing bandage, or after touching any object or surface that may be contaminated. Clean environment Use freshly laundered sheets, blankets, towels, and washcloths. Wear freshly laundered loose fitting clothes to avoid rubbing on the incision Medications Even if you feel better, if you were given antibiotics, take them until they are finished or your healthcare provider tells you to stop. Incision and drain care ? Keep your incision clean and dry. Unless instructed otherwise, it is okay to wash the skin around your incision with soap and water. Ask your surgeon when you can shower or bathe. ? If you have a dressing over your incision or a drain, follow your doctor's instructions. If dressing gets soiled or soaked, call your surgeon. ? Avoid swimming or sitting in the bathtub, pool, or hot tub until your incision is closed. ? Avoid picking, scratching, or pulling at your incision. ? When coughing or sneezing (abdominal or chest procedures) hold a pillow against your incision with both hands. This is called "splinting." Doing this helps protect your incision and decreases discomfort. ? Do not use lotions, oils, or creams on your incision unless prescribed. ? Try to avoid bumping your incision to prevent injury. Ask for help if unsteady or weak. Diabetes If you are diabetic, recommended target blood sugar is 110-150 (for cardiac surgery patients, target blood sugar is <180) for proper wound healing. If your blood sugar is not in control, contact your Primary Care Provider. Smoking If you are a smoker or exposed to secondhand smoke, consider quitting smoking and speak with your physician. Smoking increases the chance that your bones and tissue may not heal well, and the surgical area may have pain after surgery. Pets If you have pets, it is recommended that you do not sleep with or allow your pet on your lap or against your incision until it is healed. Pet skin or fur and saliva can also have germs that could cause infection. Follow-up care Follow up with your healthcare provider with questions or as advised. If you have any symptoms of an infection, such as redness and pain at the surgery site, drainage or fever, call your surgeon immediately. We are committed to your health and safety?we are here for you. [facility] 16:25:10 Images from the original note were not included. 73506 Preventing Deep Vein Thrombosis Healthcare providers use the term venous thromboembolism (VTE) to describe 2 conditions: deep vein thrombosis (DVT) and pulmonary embolism (PE). They use the term VTE because the 2 conditions are very closely related. And because how to prevent and treat them are closely related. DVT is a blood clot (thrombus) in a deep vein. Most of these clots develop in the leg or thigh. But they may form in a vein in the arm or other part of the body. Part of the blood clot may separate from the vein. This is called an embolus. It may travel to the lungs and form a pulmonary embolus. This can cut off the flow of blood to a portion of or to the entire lung. A blood clot in the lungs is a medical emergency. It may cause . Over time, blood clots can also damage veins. They must be treated right away to prevent problems. Risk factors Anyone can get a blood clot. But the following things make a blood clot more likely to happen: ? Being inactive for a long period, such as when you?re in the hospital, or traveling by plane or car ? Injury to a vein from an accident, a broken bone, or surgery ? Having blood clots in the past or a family history of blood clots ? Having a blood clotting disorder ? Recent surgery ? Having cancer and certain cancer treatments ? Smoking Other things can also put you at higher risk for a blood clot. They include: ? Being older than 60 ? Being ? Taking control pills or hormone replacement ? Having other vein problems, such as varicose veins ? Being overweight ? Having a pacemaker or a central venous catheter. They increase the chance of a blood clot forming in an arm. ? Using injected medicines. This also increases the chance of a blood clot forming in an arm. Call 911 If you have symptoms of a blood clot in your lungs, call 911. The symptoms are: ? Chest pain ? Sudden shortness of breath ? Trouble breathing ? Fast heartbeat (palpitations) ? Coughing (may cough up blood) ? Sweating ? Fainting, dizziness, lightheadedness ? Anxiety When to call your healthcare provider If you have symptoms of a blood clot, call your healthcare provider. The symptoms are: ? Pain ? Swelling ? Redness or change in color in a leg, arm, or other area How to prevent DVT Preventing a blood clot means improving blood flow back to your heart. To help prevent a blood clot: ? Talk with your healthcare provider about a program of regular exercise. ? If your legs feel swollen or heavy, take a break and sit comfortably or lie down with your feet up. ? Stay at a healthy weight. ? Quit smoking, if you smoke. ? Don't sit, stand, or lie down for long periods without moving your legs and feet: o When traveling by car, stop often to get out and move around. o On long airplane, train, or bus rides, get up and move around when possible. o If you can?t get up, wiggle your toes, and tighten your calves to keep your blood moving, as pictured below. If you need to have surgery, talk with your provider about a plan to prevent blood clots. Your risk for blood clots increases if you are in the hospital. Your provider may prescribe blood-thinner medicine (anticoagulant) to help prevent blood clots. Or they may prescribe a sequential compression device (SCD) or intermittent pneumatic compression (IPC). These devices have sleeves that fit around your legs. They put gentle pressure on your legs to help with blood flow and prevent blood clots. Remove the sleeves so that you don't trip or fall when you are walking, such as when you use the bathroom or shower. If you need help removing the sleeves, ask the nurse or aid. You may also want to try the following: Last Reviewed Date: 2023 00:00:00 ? [id number] [employer]. All rights reserved. This information is not intended as a substitute for professional medical care. Always follow your healthcare professional's instructions. [employer] [facility] [id number] 16:25:09 Images from the original note were not included. 67677 Preventing Deep Vein Thrombosis Healthcare providers use the term venous thromboembolism (VTE) to describe 2 conditions: deep vein thrombosis (DVT) and pulmonary embolism (PE). They use the term VTE because the 2 conditions are very closely related. And because how to prevent and treat them are closely related. DVT is a blood clot (thrombus) in a deep vein. Most of these clots develop in the leg or thigh. But they may form in a vein in the arm or other part of the body. Part of the blood clot may separate from the vein. This is called an embolus. It may travel to the lungs and form a pulmonary embolus. This can cut off the flow of blood to a portion of or to the entire lung. A blood clot in the lungs is a medical emergency. It may cause . Over time, blood clots can also damage veins. They must be treated right away to prevent problems. Risk factors Anyone can get a blood clot. But the following things make a blood clot more likely to happen: ? Being inactive for a long period, such as when you?re in the hospital, or traveling by plane or car ? Injury to a vein from an accident, a broken bone, or surgery ? Having blood clots in the past or a family history of blood clots ? Having a blood clotting disorder ? Recent surgery ? Having cancer and certain cancer treatments ? Smoking Other things can also put you at higher risk for a blood clot. They include: ? Being older than 60 ? Being ? Taking control pills or hormone replacement ? Having other vein problems, such as varicose veins ? Being overweight ? Having a pacemaker or a central venous catheter. They increase the chance of a blood clot forming in an arm. ? Using injected medicines. This also increases the chance of a blood clot forming in an arm. Call 911 If you have symptoms of a blood clot in your lungs, call 911. The symptoms are: ? Chest pain ? Sudden shortness of breath ? Trouble breathing ? Fast heartbeat (palpitations) ? Coughing (may cough up blood) ? Sweating ? Fainting, dizziness, lightheadedness ? Anxiety When to call your healthcare provider If you have symptoms of a blood clot, call your healthcare provider. The symptoms are: ? Pain ? Swelling ? Redness or change in color in a leg, arm, or other area How to prevent DVT Preventing a blood clot means improving blood flow back to your heart. To help prevent a blood clot: ? Talk with your healthcare provider about a program of regular exercise. ? If your legs feel swollen or heavy, take a break and sit comfortably or lie down with your feet up. ? Stay at a healthy weight. ? Quit smoking, if you smoke. ? Don't sit, stand, or lie down for long periods without moving your legs and feet: o When traveling by car, stop often to get out and move around. o On long airplane, train, or bus rides, get up and move around when possible. o If you can?t get up, wiggle your toes, and tighten your calves to keep your blood moving, as pictured below. If you need to have surgery, talk with your provider about a plan to prevent blood clots. Your risk for blood clots increases if you are in the hospital. Your provider may prescribe blood-thinner medicine (anticoagulant) to help prevent blood clots. Or they may prescribe a sequential compression device (SCD) or intermittent pneumatic compression (IPC). These devices have sleeves that fit around your legs. They put gentle pressure on your legs to help with blood flow and prevent blood clots. Remove the sleeves so that you don't trip or fall when you are walking, such as when you use the bathroom or shower. If you need help removing the sleeves, ask the nurse or aid. You may also want to try the following: Last Reviewed Date: 2023 00:00:00 ? [employer]. All rights reserved. This information is not intended as a substitute for professional medical care. Always follow your healthcare professional's instructions. EY Reed2025-02-20 16:25:05 Images from the original note were not included. [id number] IRAHETA IRAHETA stands for protection, rest, ice, compression, and elevation. Doing these things helps limit pain and swelling after an injury. IRAHETA also helps injuries heal faster. Use IRAHETA for sprains, strains, and severe bruises or bumps. Follow the tips on this handout and begin IRAHETA as soon as possible after an injury. Protection Protection is meant to protect your injured area from more damage. It may be done by keeping the injured area immobile as much as possible with the help of a sling, splint, or brace. Rest Pain is your body?s way of telling you to rest an injured area. Whether you have hurt an elbow, hand, foot, or knee, limiting its use will prevent further injury and help you heal. Resting for the first 72 hours and then gradually getting back to your activities will help you recover. Stay away from any activity that causes stress to the injured area to the point of pain. Your physical therapist will prescribe a specific set of exercises to prevent loss of muscle strength in the injured area and help you recover. Ice Applying ice right after an injury helps prevent swelling and reduce pain. Don?t place ice directly on your skin. ? Use a cold pack. Or make an ice pack by putting ice cubes in a plastic bag that seals at the top. Wrap the cold pack or ice pack in a thin cloth. Place it over the injured area. ? Ice for 10 minutes every 3 hours. Don?t ice for more than 20 minutes at a time. ? Some people are very sensitive or allergic to ice. If your skin develops an itchy rash or welts (hives) after using ice, remove the ice pack and let the area warm up. Follow up with your health care provider as soon as you can. Compression Putting pressure (compression) on an injury helps to reduce swelling and provides support. ? Wrap the injured area firmly with a compression elastic bandage. o Apply it directly to the skin by starting a few inches below the injury. o Wrap it in a spiral (figure eight) to a few inches above the injured area. o Apply a medium amount of tension so that there is enough compression without being too tight. ? If your hand or foot tingles, becomes discolored, or feels cold to the touch, the bandage may be too tight. Rewrap it more loosely. ? If your bandage becomes too loose, rewrap it. ? Don't wear an elastic bandage overnight. Elevation Keeping an injury elevated, or raised up, helps reduce swelling, pain, and throbbing. Elevation is most effective when the injury is raised up higher than the heart. When to call your health care provider Call your health care provider if you notice any of the following: ? Your fingers or toes feel numb, tingly, are cold to the touch, or change color. ? Your skin looks shiny or tight. ? The pain, swelling, or bruising gets worse and isn't better with elevation. ? You have signs of infection. These include warm skin, redness, fluid leaking, or a bad smell coming from the injured body part. ? You can't move or bend a joint. Last Reviewed Date: 2024 00:00:00 ? [id number] [employer]. All rights reserved. This information is not intended as a substitute for professional medical care. Always follow your healthcare professional's instructions. [facility]2025-02-20 16:25:05 Images from the original note were not included. 16551 IRAHETA IRAHETA stands for protection, rest, ice, compression, and elevation. Doing these things helps limit pain and swelling after an injury. IRAHETA also helps injuries heal faster. Use IRAHETA for sprains, strains, and severe bruises or bumps. Follow the tips on this handout and begin IRAHETA as soon as possible after an injury. Protection Protection is meant to protect your injured area from more damage. It may be done by keeping the injured area immobile as much as possible with the help of a sling, splint, or brace. Rest Pain is your body?s way of telling you to rest an injured area. Whether you have hurt an elbow, hand, foot, or knee, limiting its use will prevent further injury and help you heal. Resting for the first 72 hours and then gradually getting back to your activities will help you recover. Stay away from any activity that causes stress to the injured area to the point of pain. Your physical therapist will prescribe a specific set of exercises to prevent loss of muscle strength in the injured area and help you recover. Ice Applying ice right after an injury helps prevent swelling and reduce pain. Don?t place ice directly on your skin. ? Use a cold pack. Or make an ice pack by putting ice cubes in a plastic bag that seals at the top. Wrap the cold pack or ice pack in a thin cloth. Place it over the injured area. ? Ice for 10 minutes every 3 hours. Don?t ice for more than 20 minutes at a time. ? Some people are very sensitive or allergic to ice. If your skin develops an itchy rash or welts (hives) after using ice, remove the ice pack and let the area warm up. Follow up with your health care provider as soon as you can. Compression Putting pressure (compression) on an injury helps to reduce swelling and provides support. ? Wrap the injured area firmly with a compression elastic bandage. o Apply it directly to the skin by starting a few inches below the injury. o Wrap it in a spiral (figure eight) to a few inches above the injured area. o Apply a medium amount of tension so that there is enough compression without being too tight. ? If your hand or foot tingles, becomes discolored, or feels cold to the touch, the bandage may be too tight. Rewrap it more loosely. ? If your bandage becomes too loose, rewrap it. ? Don't wear an elastic bandage overnight. Elevation Keeping an injury elevated, or raised up, helps reduce swelling, pain, and throbbing. Elevation is most effective when the injury is raised up higher than the heart. When to call your health care provider Call your health care provider if you notice any of the following: ? Your fingers or toes feel numb, tingly, are cold to the touch, or change color. ? Your skin looks shiny or tight. ? The pain, swelling, or bruising gets worse and isn't better with elevation. ? You have signs of infection. These include warm skin, redness, fluid leaking, or a bad smell coming from the injured body part. ? You can't move or bend a joint. Last Reviewed Date: 2024 00:00:00 ? [id number] [employer]. All rights reserved. This information is not intended as a substitute for professional medical care. Always follow your healthcare professional's instructions. [facility] [id number] 16:25:00 Images from the original note were not included. 16 Opioids and Pain Management: For Adult Patients Understanding pain goals after surgery, major illness and trauma Our goal is to control your pain well enough so that you can do the things you need to heal; walk, sleep, eat, and breathe deeply. We will use the least amount of opioids necessary to control your pain. Things to know: Pain after injury, surgery and severe illness is normal. Everyone feels pain differently. Pain is usually worse in the first 2 to 3 days after surgery. Non-opioid medications like acetaminophen (Tylenol@), Ibuprofen (Advil@, Motrin@) and gabapentin (Neurontin@) can be effective at controlling pain. Other methods of pain relief: ? Exercise and physical therapy ? Relaxation and meditation ? Hot and cold packs ? Distraction (take your mind off the pain) ? Music Talk to your nurse or doctor if your pain is not well controlled. What is an opioid? An opioid is a strong prescription medication used for pain relief. Common names of opioids: ? tramadol (Ultram@) The opioid medications below also contain ? oxycodone (OxyContin@) acetaminophen (Tylenol@): ? methadone (Dolophine@) ? codeine (Tylenol #3@, Tylenol #4@) ? morphine (MS Contin@, Tayler@) ? hydrocodone (Burlington@, Vicodin@) ? hydromorphone (Dilaudid@) ? oxycodone (Percocet Common side effects: Constipation Ask your nurse or doctor about laxatives or stool softeners to take with opioids. Drowsiness or sleepiness You may be at increased risk for falls or injury. Ask for help when getting out of bed or walking. Nausea/Vomiting Tell your nurse or doctor. Itching Talk to your doctor before using nmbk-rtt-yfvfvqr medications. Some medications, like diphenhydramine (Benadryl@), may cause more side effects if given with an opioid. Using opioids safely at the hospital and at home Take non-opioid medications as prescribed to prevent severe pain. Only use opioids if you have severe pain that is not relieved with other prescribed non-opioid medications. Do not use opioids for any other reason. As your pain lessens, use opioids less frequently. Let your doctor know if you are currently taking any benzodiazepines, like diazepam (Valium@) or alprazolam (Xanax@). Do not drive or operate heavy machinery. Opioids can impair your ability to think clearly. You are at risk of an overdose: If you mix opioids with: ? Alcohol ? Benzodiazepines like diazepam (Valium@) or alprazolam (Xanax@) ? Muscle relaxers like carisoprodol (Soma@) ? Street drugs ? Other medications that can cause drowsiness -OR- If you have a history of: ? Sleep apnea ? Other breathing problems ? If you feel you are at a high risk of overdose at home, talk to your doctor about naloxone, a medication that counters the effects of opioid overdose. Your opioids are only for you. DO NOT share your opioids with others. Safe storage of your opioids Safely dispose of unused opioids Keep opioids out of reach from infants, children, teens and pets: ? Lock away all medications, if possible. ? Keep count of how many pills you have remaining. ? Do not store opioids in easy to access places (example: bathroom, kitchen). ? Mix (do not crush) medications with used coffee grounds or marifer litter in a plastic bag and throw away. ? Drop off at medication take-back drives. ? Use participating public disposal boxes. Locate a site near you using the [employer] website: http://takebackday.[employer].gov. Do NOT flush medications down the toilet. Know the facts about opioid addiction You are at higher risk of developing a dependence or addiction if you: ? Have a history of depression or anxiety. ? Take higher doses of opioids. ? Have a history of using or abusing alcohol, tobacco or drugs (including prescription or street drugs). ? Have long-term (chronic) pain. ? Take opioids for longer than one week. ? Take more pills, more often than your doctor prescribed. ? Have a family history of addiction. If you feel you had a dependence or addiction to opioids prior to being admitted to the hospital, talk to your doctor. What are potential risks of taking opioids? Tolerance You need more and more of the opioid to get the same effect. Dependence Addiction Overdose Hyperalgesia You may have withdrawal symptoms if you suddenly stop taking opioids or reduce the dose. You can't stop using the drug even if the opioid causes negative or harmful results. You took more than your body can handle, which can cause slowed breathing and sudden . Your pain may worsen or become more diffcuh to control with long-term opioid use. Helpful phone numbers Poison control: Substance abuse and mental health services: b.337.660.HELP (5050) Suicide prevention: 501.596.TALK (8813) Name LEONARDO HUDSON 11/11/2022 1 1 :55 [facility]2025-02-20 16:25:00 Images from the original note were not included. 16 Opioids and Pain Management: For Adult Patients Understanding pain goals after surgery, major illness and trauma Our goal is to control your pain well enough so that you can do the things you need to heal; walk, sleep, eat, and breathe deeply. We will use the least amount of opioids necessary to control your pain. Things to know: Pain after injury, surgery and severe illness is normal. Everyone feels pain differently. Pain is usually worse in the first 2 to 3 days after surgery. Non-opioid medications like acetaminophen (Tylenol@), Ibuprofen (Advil@, Motrin@) and gabapentin (Neurontin@) can be effective at controlling pain. Other methods of pain relief: ? Exercise and physical therapy ? Relaxation and meditation ? Hot and cold packs ? Distraction (take your mind off the pain) ? Music Talk to your nurse or doctor if your pain is not well controlled. What is an opioid? An opioid is a strong prescription medication used for pain relief. Common names of opioids: ? tramadol (Ultram@) The opioid medications below also contain ? oxycodone (OxyContin@) acetaminophen (Tylenol@): ? methadone (Dolophine@) ? codeine (Tylenol #3@, Tylenol #4@) ? morphine (MS Contin@, Tayler@) ? hydrocodone (Burlington@, Vicodin@) ? hydromorphone (Dilaudid@) ? oxycodone (Percocet Common side effects: Constipation Ask your nurse or doctor about laxatives or stool softeners to take with opioids. Drowsiness or sleepiness You may be at increased risk for falls or injury. Ask for help when getting out of bed or walking. Nausea/Vomiting Tell your nurse or doctor. Itching Talk to your doctor before using xgav-wka-palniuu medications. Some medications, like diphenhydramine (Benadryl@), may cause more side effects if given with an opioid. Using opioids safely at the hospital and at home Take non-opioid medications as prescribed to prevent severe pain. Only use opioids if you have severe pain that is not relieved with other prescribed non-opioid medications. Do not use opioids for any other reason. As your pain lessens, use opioids less frequently. Let your doctor know if you are currently taking any benzodiazepines, like diazepam (Valium@) or alprazolam (Xanax@). Do not drive or operate heavy machinery. Opioids can impair your ability to think clearly. You are at risk of an overdose: If you mix opioids with: ? Alcohol ? Benzodiazepines like diazepam (Valium@) or alprazolam (Xanax@) ? Muscle relaxers like carisoprodol (Soma@) ? Street drugs ? Other medications that can cause drowsiness -OR- If you have a history of: ? Sleep apnea ? Other breathing problems ? If you feel you are at a high risk of overdose at home, talk to your doctor about naloxone, a medication that counters the effects of opioid overdose. Your opioids are only for you. DO NOT share your opioids with others. Safe storage of your opioids Safely dispose of unused opioids Keep opioids out of reach from infants, children, teens and pets: ? Lock away all medications, if possible. ? Keep count of how many pills you have remaining. ? Do not store opioids in easy to access places (example: bathroom, kitchen). ? Mix (do not crush) medications with used coffee grounds or marifer litter in a plastic bag and throw away. ? Drop off at medication take-back drives. ? Use participating public disposal boxes. Locate a site near you using the [employer] website: http://takebackday.[employer].gov. Do NOT flush medications down the toilet. Know the facts about opioid addiction You are at higher risk of developing a dependence or addiction if you: ? Have a history of depression or anxiety. ? Take higher doses of opioids. ? Have a history of using or abusing alcohol, tobacco or drugs (including prescription or street drugs). ? Have long-term (chronic) pain. ? Take opioids for longer than one week. ? Take more pills, more often than your doctor prescribed. ? Have a family history of addiction. If you feel you had a dependence or addiction to opioids prior to being admitted to the hospital, talk to your doctor. What are potential risks of taking opioids? Tolerance You need more and more of the opioid to get the same effect. Dependence Addiction Overdose Hyperalgesia You may have withdrawal symptoms if you suddenly stop taking opioids or reduce the dose. You can't stop using the drug even if the opioid causes negative or harmful results. You took more than your body can handle, which can cause slowed breathing and sudden . Your pain may worsen or become more diffcuh to control with long-term opioid use. Helpful phone numbers Poison control: Substance abuse and mental health services: c.698.846.HELP (7227) Suicide prevention: 6.995.771.TALK (8950) Name LEONARDO HUDSON 11/11/2022 1 1 :55 [facility] 16:24:54 Images from the original note were not included. 15 EY [facility] [id number] 16:24:53 Images from the original note were not included. 15 [facility] 11:09:38 TIME OUT: 1108 BLOCK TYPE: adductor, Ipack, Femoral BODY PART AND LATERALITY: right START: END: 1116 FENTANYL IVP: 50 VERSED IVP: 1mg GIVEN BY ANESTHESIA NURSE:JAZIEL Mclain ANESTHESIOLOGIST: Foreign ANESTHESIA NURSE: TIME TO OR : OMER SERVICE ATTENDANT General Surgery Registered NurseMemorinm [id number] 16:30:02Upcoming Encounters Scheduled Procedures Name Priority Associated Diagnoses Date/Ti me ARTHROPLASTY, KNEE, UNICOMPARTMENTAL, USING RAND SYSTEM Unilateral primary osteoarthritis, right knee 03/28/2024 1:30 PM CUSTOMER SERVICE ATTENDANT Health Maintenance Due Date Last Done Comments Bone Density Scan 1945 Lipid Panel 1945 Medicare Annual Wellness (AWV) 1945 Annual Physical 12/16/1948 Pneumococcal Vaccine: 65+ Years (1 of 2 - PCV) 1951 DTaP/Tdap/Td Vaccines (1 - Tdap) 12/16/1963 Respiratory Syncytial Virus (RSV) or >=60 (1 - 1-dose 75+ series) 12/16/2019 Zoster Vaccines (2 of 2) 05/08/2024 03/13/2024 Influenza Vaccine Completed 03/13/2024, 11/01/2022, 11/23/2021 HIB Vaccines Aged Out No longer eligi ble based on patient's age to complete this topic HPV Vaccines Aged Out No longer eligi ble based on patient's age to complete this topic Hepatitis A Vaccines Aged Out No long er eligible based on patient's age to complete this topic Hepatitis B Vaccines Aged Out No long er eligible based on patient's age to complete this topic IPV Vaccines Aged Out No longer eligi ble based on patient's age to complete this topic Meningococcal Vaccine Aged Out No attila jackelyn eligible based on patient's age to complete this topic Rotavirus Vaccines Aged Out No longer eligible based on patient's age to complete this topic Ruddy [id number] 16:30:02 Ruddy Reed
[2024-09-22 12:13] LABS: Absolute Lymphocytes (CBC) 2.0 K/uL (0.7-4.9); Hematocrit 39.5 % (36.0-45.0); Hemoglobin 13.0 g/dL (12.0-15.0); MCH 28.9 pg (27.0-35.0); MCHC 32.9 g/dL (32.0-36.0); MCV 87.8 fL (80-100); MPV 7.4 fL (7.6-11.3); Nucleated RBC Absolute Count 0.0 (0-0); Nucleated Red Blood Cells % 0.0 % (0-0); RBC Red Blood Cell Count 4.50 M/uL (3.86-4.86); White Blood Count 9.70 thou/uL (4.3-10.9)
[2024-09-22 12:41] LABS: PT Prothrombin Time 11.4 SECONDS (10-13.0); Protime INR 1.01
[2024-09-22 13:00] LABS: ALT/SGPT 27.0 U/L (13-56); AST/SGOT 17.0 U/L (15-37); Albumin 3.6 g/dL (3.4-5.0); Albumin/Globulin Ratio 1.1 (1.1-1.8); Alkaline Phosphatase 135.0 U/L (45-117); Anion Gap 11.0 mEq/L (5.0-15.0); BUN Blood Urea Nitrogen 17.0 mg/dL (7-18); Bilirubin Indirect, Calculated 0.4 mg/dL (0.2-0.8); Globulin 3.4 g/dL (2.3-3.5); Glucose Level 96.0 mg/dL (74-106); Magnesium 2.2 mg/dL (1.6-2.4); NT PRO-BNP 42.0 pg/mL (<450); Potassium 4.0 mEq/L (3.5-5.1); Troponin High Sensitivity 4.5 pg/mL (<58.9)
--- NOTE | 2024-09-22 13:32 | RAD REPORT ---
EXAM: Chest Single View HISTORY: 78 years Female CHEST PAIN COMPARISON: 10/05/2020 FINDINGS: LUNGS/PLEURA: The lungs are clear. No pleural effusions or pneumothorax. No pulmonary edema. CARDIAC/MEDIASTINUM: The cardiac silhouette is within normal limits. UPPER ABDOMEN: No significant abnormality. BONES: No acute abnormality. LINES/TUBES/OTHER: N/A IMPRESSION: No evidence of acute cardiopulmonary disease.
--- NOTE | 2024-09-22 14:38 | EDPHYS ---
Physician Documentation [facility] Name: Zofia Castillo Age: 78 yrs Sex: Female : 1945 Arrival Date: 09/22/2024 Time: 11:41 Bed 7 Private MD: ED Physician Lit Albarran HPI: 09/22 11:58 This 78 yrs old Female presents to ER via Unassigned with complaints of Chest Pain. sb4 11:58 Patient reports intermittent chest pain over the past month that is typically relieved sb4 with nitroglycerin. States that she was [place] and started experiencing some chest pain, took a nitroglycerin, and states it has improved but is still there. She also feels like her throat is tight. States the pain is sharp in nature and radiates up to her left shoulder/neck region. Denies any nausea, dizziness, or shortness of breath. Does report a history of coronary artery disease, last cardiac catheterization was over 10 years ago, did not require stent at that time but did have some plaque buildup. States that she takes Plavix and a statin daily, does not take aspirin due to an allergy. Does see cardiology regularly, had a normal echo recently. Historical: - Allergies: 12:07 Aspirin; jl7 - Home Meds: 12:07 Plavix Oral [Active]; atorvastatin 40 mg oral tablet [Active]; Wixela Inhub 250-50 jl7 mcg/dose inhalation Blister, With Inhalation Device [Active]; valsartan 320 mg oral tablet [Active]; doxazosin 1 mg oral tablet BID [Active]; clonidine HCl 0.1 mg Oral tablet 3 times per day [Active]; - PMHx: 12:07 Hypertensive disorder; Asthma; Sleep apnea; Rheumatoid arthritis; Hypercholesterolemia; jl7 - Immunization history:: Adult Immunizations unknown. - Infectious Disease History:: Denies. - Social history:: Smoking status: Patient denies any tobacco usage or history of. ROS: 11:58 Constitutional: Negative for fever, chills, and weight loss, sb4 11:58 Cardiovascular: Positive for chest pain, 11:58 All other systems are negative, Exam: 11:58 Constitutional: This is a well developed, well nourished patient who is awake, alert, sb4 and in no acute distress. Head/Face: Normocephalic, atraumatic. Eyes: Extra-ocular motions intact. Periorbital areas with no swelling, redness, or edema. ENT: Mucous membranes moist. Cardiovascular: Regular rate and rhythm with a normal S1 and S2. Respiratory: No increased work of breathing, no retractions or nasal flaring. Abdomen/GI: Soft, non-tender, no distension. Skin: Warm, dry with normal turgor. Normal color with no rashes, no lesions, and no evidence of cellulitis. Vital Signs: 11:50 BP 174 / 79; Pulse 97; Resp 15; Temp 99.1; Pulse Ox 98% ; Pain 3/10; jl7 13:00 BP 153 / 69; Pulse 67; Resp 15; Pulse Ox 97% ; jl7 14:41 BP 156 / 68; Pulse 65; Resp 15; Pulse Ox 97% ; jl7 11:50 Pain Scale: Adult jl7 MDM: 11:44 Medical Screening Exam initiated sb4 12:00 Differential diagnosis: abnormal EKG, acute myocardial infarction, chest wall pain, sb4 stable angina, unstable angina. The patient was not given aspirin in the Emergency Department. Not indicated due to patient's past medical history. Historians other than the Patient: Spouse/Significant Other: . Care significantly affected by the following chronic conditions: Hypertension, Obesity. 13:04 Scoring Tools HEART Score: History: ECG: Age: Risk Factors: > or = 3 Risk factors for sb4 atherosclerotic disease (2), Troponin: Total Score = 6. 13:05 Data reviewed: vital signs, nurses notes, lab test result(s), EKG, radiologic studies, sb4 and as a result, I will admit patient. Consideration of Admission/Observation Patient was admitted/placed on observation. Counseling: I had a detailed discussion with the patient and/or guardian regarding the historical points, exam findings, and any diagnostic results supporting the discharge/admit diagnosis, the presence of at least one elevated blood pressure reading (>120/80) during this emergency department visit, lab results, radiology results, the need for further work-up and treatment in the hospital. 13:06 Independent interpretation of the following test(s) in the Emergency Department X-Ray: sb4 My interpretation is My interpretation of the chest x-ray images is no cardiomegaly or pleural effusions. 13:55 ED course: Patient does not wish to stay in the hospital. She states that her pain is sb4 improved. She has agreed to a repeat troponin and will go home if that is negative. I did recommend admission for further cardiac workup and monitoring given her history, but she will follow-up with her general administrator this week. She does understand the risks of going home, a cardiac event occurring, she and her state that they will return if anything worsens. 09/22 11:54 Order name: Basic Metabolic Panel; Complete Time: 13:01 sb4 09/22 11:54 Order name: CBC with Diff; Complete Time: 12:16 sb4 09/22 11:54 Order name: LFT's; Complete Time: 13: sb4 09/22 11:54 Order name: Magnesium; Complete Time: 13: sb4 09/22 11:54 Order name: NT PRO-BNP; Complete Time: 13:01 sb4 09/22 11:54 Order name: PT-INR; Complete Time: 12:43 sb4 09/22 11:54 Order name: Troponin HS; Complete Time: 13:01 sb4 09/22 13:44 Order name: Troponin High Sensitivity; Complete Time: 14:37 sb4 09/22 11:54 Order name: XRAY Chest (1 view); Complete Time: 13:33 sb4 09/22 11:54 Order name: Cardiac monitoring; Complete Time: 12:12 sb4 09/22 11:54 Order name: EKG - Nurse/Tech; Complete Time: 12:12 sb4 09/22 11:54 Order name: IV Saline Lock; Complete Time: 12:13 sb4 09/22 11:54 Order name: Labs collected and sent; Complete Time: 12:13 sb4 09/22 11:54 Order name: O2 Per Protocol; Complete Time: 12:13 sb4 09/22 11:54 Order name: O2 Sat Monitoring; Complete Time: 12:13 sb4 EC:03 Rate is 84 beats/min. Rhythm is regular, Normal Sinus Rhythm. SD interval is normal at sb4 164 msec. QRS interval is normal at 92 msec. QT interval is normal at 374 msec. No Q waves. T waves are Normal. No ST changes noted. Clinical impression: Normal ECG. Interpreted by me. Reviewed by me. Administered Medications: No medications were administered Disposition: 17:00 Co-signature as Attending Physician, Lit Albarran MD I reviewed the patient's care rn provided by the Advanced Practice Provider and agree with the diagnosis and treatment plan. Disposition Summary: 09/22/24 14:37 Discharge Ordered Notes: Location: Home sb4 Problem: an ongoing problem sb4 Symptoms: have improved sb4 Condition: Stable sb4 Diagnosis - Chest pain, unspecified sb4 Followup: sb4 - With: Emergency Department - When: As needed - Reason: Worsening of condition Discharge Instructions: - Discharge Summary Sheet sb4 - Nonspecific Chest Pain, Adult, Qwie-og-Hdvf sb4 Forms: - Patient Portal Instructions sb4 - Leadership Thank You Letter sb4 Signatures: Dispatcher [employer] Lit Alcantara MD MD rn Leal, Jahala, RN RN jlIsabel Corcoran PA-C PA-C sb4 Corrections: (The following items were deleted from the chart) 11:55 11:55 BASIC METABOLIC PANEL+C.LAB.BRZ ordered. [facility] 11:55 11:55 CBC+H.LAB.BRZ ordered. [facility] 11:55 11:55 HEPATIC FUNCTION+C.LAB.BRZ ordered. [facility] 11:55 11:55 MAGNESIUM+C.LAB.BRZ ordered. [facility] 11:55 11:55 PROBNP+C.LAB.BRZ ordered. [facility] 11:55 11:55 PROTIME (+INR)+COAG.LAB.BRZ ordered. [facility] 11:55 11:55 Troponin High Sensitivity+C.LAB.BRZ ordered. [facility] 11:55 11:55 Chest Single View+RAD.RAD.BRZ ordered. [facility] 12:02 11:58 Patient reports intermittent chest pain over the past month that is typically sb4 relieved with nitroglycerin. States that [place] and started experiencing some chest pain, took a nitroglycerin, and states it has improved but is still there. States the pain is sharp in nature and radiates up to her left shoulder/neck region. Denies any nausea, dizziness, or shortness of breath. Does report a history of coronary artery disease, last cardiac catheterization was over 10 years ago, did not require stent at that time but did have some plaque buildup. States that she takes Plavix and a statin daily, does not take aspirin due to an allergy. Does see cardiology regularly, had a normal echo recently. sb4
--- NOTE | 2024-09-22 14:38 | ER ---
Nurse's Notes [facility] Name: Zofia Castillo Age: 78 yrs Sex: Female : 1945 Arrival Date: 09/22/2024 Time: 11:41 Bed 7 Private MD: Diagnosis: Chest pain, unspecified Presentation: 09/22 11:50 Chief complaint: Patient states: Left sided CP, radiates to throat, intermittent for jl7 last month, took nitro this morning and it helped. Coronavirus screen: At this time, the client does not indicate any symptoms associated with coronavirus-19. Ebola Screen: No symptoms or risks identified at this time. Initial Sepsis Screen: Does the patient meet any 2 criteria? No. Patient's initial sepsis screen is negative. Does the patient have a suspected source of infection? No. Patient's initial sepsis screen is negative. Risk Assessment: Do you want to hurt yourself or someone else? Patient reports no desire to harm self or others. Onset of symptoms was September 22, 2024. 11:50 Method Of Arrival: Ambulatory 7 11:50 Acuity: CHRISTIN 2 jl7 Triage Assessment: 11:50 General: Appears in no apparent distress. uncomfortable, Behavior is calm, cooperative, jl7 appropriate for age. Pain: Complains of pain in chest Pain radiates to neck Pain currently is 3 out of 10 on a pain scale. at worst was 8 out of 10 on a pain scale. Neuro: Chand Agitation-Sedation Scale (RASS): 0 - Alert and Calm Level of Consciousness is awake, alert, obeys commands, Oriented to person, place, time, situation. Cardiovascular: Patient's skin is warm and dry. Rhythm is regular. Respiratory: Airway is patent Respiratory effort is even, unlabored, Respiratory pattern is regular, symmetrical. Derm: Skin is pink, warm \T\ dry. Historical: - Allergies: 12:07 Aspirin; jl7 - Home Meds: 12:07 Plavix Oral [Active]; atorvastatin 40 mg oral tablet [Active]; Wixela Inhub 250-50 jl7 mcg/dose inhalation Blister, With Inhalation Device [Active]; valsartan 320 mg oral tablet [Active]; doxazosin 1 mg oral tablet BID [Active]; clonidine HCl 0.1 mg Oral tablet 3 times per day [Active]; - PMHx: 12:07 Hypertensive disorder; Asthma; Sleep apnea; Rheumatoid arthritis; Hypercholesterolemia; jl7 - Immunization history:: Adult Immunizations unknown. - Infectious Disease History:: Denies. - Social history:: Smoking status: Patient denies any tobacco usage or history of. Screenin:[address] [facility] ED Fall Risk Assessment (Adult) History of falling in the last 3 months, jl7 including since admission No falls in past 3 months (0 pts) Confusion or Disorientation No (0 pts) Intoxicated or Sedated No (0 pts) Impaired Gait No (0 pts) Mobility Assist Device Used No (0 pt) Altered Elimination No (0 pt) Score/Fall Risk Level 0 - 2 = Low Risk Oriented to surroundings, Maintained a safe environment. Abuse screen: Denies threats or abuse. Denies injuries from another. Nutritional screening: No deficits noted. Tuberculosis screening: No symptoms or risk factors identified. Assessment: 13:00 Reassessment: Patient appears in no apparent distress at this time. No changes from jl7 previously documented assessment. Patient and/or family updated on plan of care and expected duration. Pain level reassessed. Patient is alert, oriented x 3, equal unlabored respirations, skin warm/dry/pink. 14:00 Reassessment: Patient appears in no apparent distress at this time. No changes from jl7 previously documented assessment. Patient and/or family updated on plan of care and expected duration. Pain level reassessed. Patient is alert, oriented x 3, equal unlabored respirations, skin warm/dry/pink. Vital Signs: 11:50 BP 174 / 79; Pulse 97; Resp 15; Temp 99.1; Pulse Ox 98% ; Pain 3/10; jl7 13:00 BP 153 / 69; Pulse 67; Resp 15; Pulse Ox 97% ; jl7 14:41 BP 156 / 68; Pulse 65; Resp 15; Pulse Ox 97% ; jl7 11:50 Pain Scale: Adult jl7 ED Course: 11:44 Patient arrived in ED. ts1 11:44 Isabel Ross PA-C is PHCP. sb4 11:44 Lit Albarran MD is Attending Physician. sb4 11:50 Arm band placed on right wrist. EKG completed in triage. Results shown to . jl7 12:00 No provider procedures requiring assistance completed. Initial lab(s) drawn, by ramses roger sent to lab. Inserted saline lock: 20 gauge in right antecubital area, using aseptic technique. Blood collected. Flushed with 10 mL NS. Patient maintains SpO2 saturation greater than 95% on room air. 12:05 Latanya Vasquez, RN is Primary Nurse. jl7 12:07 Triage completed. jl7 12:56 XRAY Chest (1 view) In Process Unspecified. EDMS 14:42 Patient has correct armband on for positive identification. Provided Education on: use jl7 of call bassett. Client placed on continuous cardiac and pulse oximetry monitoring. NIBP monitoring applied. monitoring specialist on. Pulse ox on. 14:50 IV discontinued, intact, bleeding controlled, No redness/swelling at site. Pressure jl7 dressing applied. Administered Medications: No medications were administered Medication: 14:42 VIS not applicable for this client. jl7 Outcome: 14:37 Discharge ordered by . martha 14:50 Discharged to home ambulatory, jl7 14:50 Condition: stable 14:50 Discharge instructions given to patient, family, Instructed on discharge instructions, follow up and referral plans. Demonstrated understanding of instructions, follow-up care, 14:50 Patient left the ED. jl7 Signatures: Dispatcher [employer] [facility] Latanya Vasquez RN RN jl7 Isabel Ross PA-C PATona Mckinnon PAS PAS ts1 Corrections: (The following items were deleted from the chart) 14:50 14:00 IV discontinued, intact, bleeding controlled, No redness/swelling at site. jl7 Pressure dressing applied, jl7
[2024-09-22 18:49] VITALS: TEMP 99.1
[2024-09-22 18:51] VITALS: O2SAT 97
[2024-09-22 18:53] VITALS: BP 156/68
== END 2024-09-22 14:50 | disposition home or self-care (01) ==
LOC: ER 11:41
DX: R07.9 Chest pain, unspecified (principal); I10 Essential (primary) hypertension; Z79.01 Long term (current) use of anticoagulants
CPT/HCPCS: 36415; 71045; 80048; 80076; 83735; 83880; 84484; 85025; 85610; 93005; 99284